=== PATIENT | female | born 1990 | race Caucasian/White ===

== ENCOUNTER 2018-03-05 14:56 | Observation (INO) | payer BC ==
--- OUTSIDE RECORDS SUMMARY | 2018-03-05 14:59 | XMS REPORT | Clinical Summary ---
:1990 Author Organization [facility] Address [address] [place] [address] Care Team Providers Name Role Phone Meng Tejada MD Primary Care Provider Allergies No Known Allergies Current Medications Prescription Sig. Disp. Refills Start Date End Date Status omeprazole Take 20 mg by Active (PriLOSEC) 20 MG mouth daily. capsule NUVARING 0.12-0.015 02/14/2017 Active mg/24 hr vaginal ring promethazine TAKE ONE TABLET 50 tablet 2 03/22/2017 Active (PHENERGAN) 25 MG BY MOUTH EVERY 6 tablet HOURS NEEDED FOR NAUSEA OR VOMITING dicyclomine TAKE 1 TABLET 30 tablet 5 05/07/2017 Active (BENTYL) 20 mg (20 MG TOTAL) BY tablet MOUTH DAILY NEEDED (ABDOMINAL PAIN). clonAZEPAM Take 0.5 mg by 0 05/02/2017 Active (KlonoPIN) 0.5 MG mouth 2 (two) disintegrating times a day as tablet needed. PARoxetine (PAXIL) Take 10 mg by 0 05/01/2017 Active 20 MG tablet mouth 2 (two) times a day. propranolol TAKE 1/2 - 1 0 05/02/2017 Active (INDERAL) 20 MG TABLET BY MOUTH tablet TWICE A DAY NEEDED FOR ANXIETY hyoscyamine Take 1-2 tablets 50 tablet 3 05/14/2017 Active (LEVSIN) 0.125 mg by mouth every 4 SL hours prn for tabletIndications: abdominal pain Irritable bowel syndrome with diarrhea hyoscyamine TAKE 1 TABLET BY 50 tablet 3 02/02/2018 Active (ANASPAZ,LEVSIN) MOUTH EVERY 4 0.125 mg tablet HOURS NEEDED FOR CRAMPING INFLIXIMAB Infuse into a Discontinued (REMICADE IV) venous catheter. 7 sertraline (ZOLOFT) Take 100 mg by Discontinued 100 MG tablet mouth daily. 7 clonAZEPAM Take 0.5 mg by Discontinued (KlonoPIN) 0.5 MG mouth daily. 7 tablet dicyclomine Take 1 tablet 30 tablet 0 02/05/2017 Discontinued (BENTYL) 20 mg (20 mg total) by 7 tablet mouth daily as needed (abdominal pain). promethazine Take 1 tablet 50 tablet 3 02/15/2017 (PHENERGAN) 25 MG (25 mg total) by 7 tabletIndications: mouth every 6 Nausea (six) hours as needed for nausea or vomiting for up to 30 days. traMADol (ULTRAM) Take 1 tablet by 30 tablet 0 02/27/2017 Discontinued 50 mg tablet mouth every 4-6 7 hours as needed for pain traMADol (ULTRAM) TAKE 1 TABLET BY 30 tablet 0 03/11/2017 50 mg tablet MOUTH EVERY 4 TO 7 6 HOURS NEEDED FOR PAIN dicyclomine TAKE 1 TABLET 30 tablet 0 03/22/2017 Discontinued (BENTYL) 20 mg (20 MG TOTAL) BY 7 tablet MOUTH DAILY NEEDED (ABDOMINAL PAIN). hyoscyamine Take 1 tablet 50 tablet 3 04/16/2017 Discontinued (ANASPAZ,LEVSIN) (0.125 mg total) 7 0.125 mg tablet by mouth every 4 (four) hours as needed for cramping for up to 30 days. riFAXimin (XIFAXAN) Take 1 tablet 42 tablet 0 05/14/2017 550 mg (550 mg total) 7 tabletIndications: by mouth 3 Diarrhea (three) times a Predominant day for 14 days Irritable Bowel Indications: Syndrome Diarrhea Predominant Irritable Bowel Syndrome. hyoscyamine Take 1 tablet 50 tablet 3 05/14/2017 Discontinued (LEVSIN) 0.125 mg (0.125 mg total) 7 SL by mouth every 4 tabletIndications: (four) hours as Irritable bowel needed for syndrome with cramping for up diarrhea to 30 days. Active Problems Problem Noted Date Crohn's disease of small intestine with complication 02/07/2017 Encounters Date Type Specialty Care Team Description 02/02/2018 Refill Gastroenterology Meng Tejada MD 08/15/2017 Telephone Gastroenterology Monique Trevino RN 06/17/2017 Telephone GastroenterMeng Ponce MD 06/04/2017 Telephone GastroenterIndia Agustin MA 06/03/2017 Telephone Gastroenterology Lisa Hooker RN 05/14/2017 Office Visit Gastroenterology Meng Tejada, Irritable bowel syndrome with diarrhea (Primary Dx) 05/07/2017 Refill GastroenterMeng Ponce MD 03/21/2017 Refill Meng Mendoza MD 03/08/2017 Refill GastroenterMeng Ponce MD 03/06/2017 Telephone Gastroenterology India Paz MA after 03/04/2017 Social History Tobacco Use Types Packs/Day Years Used Date Never Smoker Alcohol Use Drinks/Week oz/Week Comments Yes Sex Assigned at Date Recorded Not on file Last Filed Vital Signs Vital Sign Reading Time Taken Blood Pressure 114/71 05/14/2017 10:06 AM CDT Pulse 75 05/14/2017 10:06 AM CDT Temperature - - Respiratory Rate - - Oxygen Saturation - - Inhaled Oxygen Concentration - - Weight 77.1 kg (170 lb) 05/14/2017 10:06 AM CDT Height 160 cm (5' 3") 05/14/2017 10:06 AM CDT Body Mass Index 30.11 05/14/2017 10:06 AM CDT Plan of Treatment Health Maintenance Due Date Last Done Comments PAP SMEAR 2009 INFLUENZA VACCINE 06/25/2018 Results Not on fileafter 03/04/2017
[2018-03-05] MEDS ORDERED: ACETAMINOPHEN 500 MG TAB PO PRN (15:10)
[2018-03-05] MEDS: PROMETHAZINE 25 MG/ML VIAL IV PRN ×2 (15:40→19:50)
[2018-03-05] MEDS ORDERED: D5LR 1,000 ML IV SCH (16:00)
[2018-03-05 16:23] LABS: RPR Titer ND
[2018-03-05 16:32] LABS: Absolute Lymphocytes (CBC) 1.6 K/uL (0.7-4.9); Absolute Monocytes 0.5 K/uL (0.1-1.3); Absolute Neutrophil 7.7 K/uL (1.8-8.0); Basophils % 0.3 % (0-1.3); Eosinophils % 0.4 % (0-4.4); Lymphocytes % 16.2 % (15.3-44.8); MCH 29.1 pg (27.0-35.0); MCV 87.9 fL (80-100); MPV 10.3 fL (7.6-11.3); RBC Red Blood Cell Count 4.67 M/uL (3.86-4.86)
[2018-03-05 16:44] LABS: Glucose Level 131 mg/dL (65-120)
[2018-03-05 16:53] LABS: Potassium 3.6 mEq/L (3.6-5.0)
[2018-03-05] MEDS: D5LR 1,000 ML IV SCH ×2 (17:40→21:40)
[2018-03-05 22:01] LABS: RPR (Rapid Plasma Reagin) NON-REACT (NON-REACT)
[2018-03-06] MEDS: D5LR 1,000 ML IV SCH (06:44)
[2018-03-06 06:56] LABS: Urine Blood ND (NEG); Urine Glucose ND (NEG); Urine Protein ND (NEG)
[2018-03-06] MEDS: PROMETHAZINE 25 MG/ML VIAL IV PRN (07:40)
--- NOTE | 2018-03-06 07:55 | P.PN ---
Date of Service: 03/06/18 S-Still nauseated, did not have Diclegis last night O-Wt. to 183, up two pounds from office, negative ketonuria A-Improved but still not well P-Continued observation, will re-evaluate post noon, will retrieve samples of Diclegis from office.
[2018-03-06 10:22] VITALS: BMI 32.5
[2018-03-06 12:34] VITALS: BP 91/45; TEMP 98.7
--- NOTE | 2018-03-07 08:47 | PREOPHP ---
Date of Admission: 03/05/2018 History Of Present Illness: Ms. Arboleda is a 27-year-old female, 4, para 1 -0-2-1, now at approximately 9+ weeks gestation, who is admitted with hyperemesis gravidarum. She monge s been followed by me during this with history of 2 prior spontaneous ABs, history of depre ssion, mildly abnormal Pap smear, and now development of hyperemesis gravidarum. She has not been ab le to keep anything down more than a few crackers over the last couple of days and has lost a total o f 3.5 pounds over an approximately 1 week period of time despite taking Diclegis and Zofran at home. Because of this, she does show 1+ ketonuria. She will be admitted for IV hydration and for antiemet ic therapy. She denies recent cough, cold, fever, or chills. No recent vaginal bleeding or spotting . Past Medical History: Includes prior appendectomy, prior cholecystectomy, 2 prior spontaneous ABs, a nd 1 prior vaginal delivery. Medications: She is on no medications other than vitamins, Zofran, Diclegis. Allergies: SHE LISTS NO KNOWN ALLERGIES. Social History: She does not smoke. Family History: Noncontributory, except mother with elevated blood pressure. Review of Systems: She reports no fever or chills. She has had some upper abdominal discomfort from vomiting. She terry es any breast lumps. She denies any urine symptoms. No vaginal bleeding or spotting or bowel change s. Physical Examination: General: female in mild discomfort. Neck: Supple without adenopathy or thyromegaly. Lungs: Clear. Cardiac: Regular rate and rhythm without murmurs. Breasts: Not examined. Abdomen: Nontender without organosplenomegaly. Pelvic: Not performed. Extremities: No cyanosis, clubbing, edema. Plan: The patient will be admitted for IV hydration and treatment with IV Phenergan. GERI/ADALGISA Voice ID: [id number]
[2018-03-08 13:04] LABS: HBsAG Nonreactive (Nonreactive)
== END 2018-03-06 13:15 | disposition home or self-care (01) ==
LOC: 2ND-WC 14:56
PROVIDERS: ADMIT Specialist; ATTEND Specialist
DX: O21.0 Mild hyperemesis gravidarum (principal); Z3A.09 9 weeks gestation of pregnancy
CPT/HCPCS: 36415; 80051; 81003; 82947; 85025; 86592; 86762; 86850; 86900; 86901; 87340; G0378; G0433; J2550

== ENCOUNTER 2018-04-07 14:19 | Observation (INO) | payer BC ==
--- OUTSIDE RECORDS SUMMARY | 2018-04-07 14:24 | XMS REPORT | Clinical Summary ---
:1990 Author Organization [facility] Address [address] [place] [address] Care Team Providers Name Role Phone Meng [...] (KlonoPIN) 0.5 MG mouth daily. 7 tablet traMADol (ULTRAM) TAKE 1 TABLET BY 30 [...] Meng Tejada MD 08/15/2017 Telephone Gastroenterology Monique Trevino, IVETTE 06/17/2017 Telephone Gastroenterology Meng Tejada MD 06/04/2017 Telephone Gastroenterology India Paz MA 06/03/2017 Telephone Gastroenterology Lisa Hooker RN 05/14/2017 Office Visit Gastroenterology Meng Tejada, Irritable bowel syndrome with diarrhea (Primary Dx) 05/07/2017 Refill Gastroenterology Meng Tejada MD after 04/06/2017 Social History Tobacco Use Types Packs/Day Years [...] INFLUENZA VACCINE 06/25/2018 Results Not on fileafter 04/06/2017
[2018-04-07] MEDS ORDERED: D5LR 1,000 ML IV ONE (14:25)
[2018-04-07] MEDS ORDERED: D5LR 1,000 ML IV SCH ×3 (15:00→19:02)
[2018-04-07 15:08] LABS: Absolute Lymphocytes (CBC) 1.4 K/uL (0.7-4.9); Absolute Monocytes 0.6 K/uL (0.1-1.3); Absolute Neutrophil 7.3 K/uL (1.8-8.0); Basophils % 0.3 % (0-1.3); Eosinophils % 0.4 % (0-4.4); Hematocrit 40.4 % (36.0-45.0); Lymphocytes % 14.6 % (15.3-44.8); MCH 29.4 pg (27.0-35.0); MPV 9.7 fL (7.6-11.3); Monocytes % 6.4 % (3.3-12.3); RBC Red Blood Cell Count 4.65 M/uL (3.86-4.86)
[2018-04-07 15:09] VITALS: BMI 32.5
[2018-04-07] MEDS: D5LR 1,000 ML IV SCH ×3 (15:11→22:55)
[2018-04-07] MEDS: PROMETHAZINE 25 MG/ML VIAL IV PRN ×2 (15:17→19:45)
[2018-04-07 15:26] LABS: Bicarbonate 26 mEq/L (21-31); Glucose Level 83 mg/dL (65-120); Potassium 4.1 mEq/L (3.6-5.0)
[2018-04-07 15:27] LABS: BUN Blood Urea Nitrogen 9 mg/dL (6-20)
[2018-04-07] MEDS: ACETAMINOPHEN 500 MG TAB PO PRN (16:28)
[2018-04-07 18:17] LABS: Urine Blood ND (NEG); Urine Glucose ND (NEG); Urine Protein ND (NEG)
--- NOTE | 2018-04-07 19:33 | PREOPHP ---
Date of Admission: 04/07/2018 History Of Present Illness: Ms. Arboleda is a 27-year-old female, 4, para 1-0-2-1 a t approximately 13+ weeks gestation, who will be admitted for hyperemesis gravidarum with dehydration . She has been treated as an outpatient with Diclegis, Phenergan and Zofran and has lost 5 pounds ov er the last week and is therefore admitted for treatment with hydration and antiemetic agents. Past Medical History: Please see record. Family History: Please see record. Review of Systems: She reports no recent cough, cold, fever, or chills. She has had a headache. She denies any vaginal bleeding or spotting. She denies any urine symptoms or bowel issues other than she had loose bowel movements this last week with some diarrhea that is settle down. Physical Examination: General: female. Neck: Supple without adenopathy or thyromegaly. Lungs: Clear. Cardiac: Regular rate and rhythm without murmurs. Breasts: Not examined. Abdomen: Nontender. heart tones well heard. Laboratory Data: Urine is 2+ ketones. Impression: 13+ week , hyperemesis, gravidarum, dehydration. Plan: The patient will be admitted for IV hydration with failed outpatient treatment for hyperemesis . GERI/ADALGISA Voice ID: [id number]
[2018-04-07 20:01] LABS: Sodium Level 137 mEq/L (135-145)
[2018-04-07] MEDS ORDERED: RANITIDINE 150 MG TABLET PO SCH (21:00)
[2018-04-08 00:42] LABS: Urine Blood NEGATIVE (NEG); Urine Glucose NEGATIVE (NEG); Urine Protein NEGATIVE (NEG)
[2018-04-08 04:25] LABS: Urine Blood NEGATIVE (NEG); Urine Glucose NEGATIVE (NEG); Urine Protein NEGATIVE (NEG)
[2018-04-08] MEDS: D5LR 1,000 ML IV SCH ×2 (05:25→11:30)
[2018-04-08 06:22] LABS: Urine Blood NEGATIVE (NEG); Urine Glucose NEGATIVE (NEG); Urine Protein NEGATIVE (NEG)
[2018-04-08] MEDS: PROMETHAZINE 25 MG/ML VIAL IV PRN ×2 (07:07→13:04)
[2018-04-08] MEDS: ACETAMINOPHEN 500 MG TAB PO PRN (07:11)
[2018-04-08 12:00] LABS: Urine Blood NEGATIVE (NEG); Urine Glucose NEGATIVE (NEG); Urine Protein NEGATIVE (NEG)
[2018-04-08 12:00] LABS: Urine Blood NEGATIVE (NEG); Urine Glucose NEGATIVE (NEG); Urine Protein NEGATIVE (NEG)
[2018-04-08 16:10] VITALS: BP 102/56; TEMP 97.8
--- NOTE | 2018-04-09 15:13 | DS ---
Date of Discharge: 04/08/2018 Final Hospital Discharge Diagnoses: 1.13+ week . 2.Hyperemesis gravidarum. 3.Dehydration. Complications: None. Procedures: IV hydration treatment with antiemetic therapy. Hospital Course: The patient is a 27-year-old female, 13+ weeks gestation, admitted for se cond time during this with hyperemesis, dehydration, and unresponsive to outpatient managem ent. She has lost 5 pounds over 1 week period of time and was not able to keep fluids down. She was admitted, treated with IV hydration, antiemetic therapy, was dismissed to be seen back in my office utilizing Phenergan tabs and Dicaubreegis. Lab work obtained during this hospital stay included ketones were 4+ on admission, resolved within 8 hours of admission. She had an admission hemoglobin and latricia tocrit of 13.6 and 40.4. Chemistries generally okay with the exception of mildly elevated chloride o n admission. Urine, again 4+ ketones on admission and then negative after that point. GERI/ADALGISA Voice ID: [id number] Report ID: [id number]
== END 2018-04-08 17:20 | disposition home or self-care (01) ==
LOC: 2ND-WC 14:19
PROVIDERS: ADMIT Specialist; ATTEND Specialist
DX: O21.1 Hyperemesis gravidarum with metabolic disturbance (principal); Z3A.13 13 weeks gestation of pregnancy
CPT/HCPCS: 36415; 80048; 81003; 85025; G0378; J2550

== ENCOUNTER 2018-06-05 13:01 | Emergency (ER) | payer BC ==
--- OUTSIDE RECORDS SUMMARY | 2018-06-05 13:03 | XMS REPORT | Clinical Summary ---
:1990 Author Organization [facility] Address [address] [place] [address] Care Team Providers Name Role Phone Meng Tejada MD Primary Care Provider Allergies No Known Allergies Current Medications Prescription Sig. Disp. Refills Start Date End Date Status omeprazole (PriLOSEC) Take 20 mg by Active 20 MG capsule mouth daily. NUVARING 0.12-0.015 02/14/2017 Active mg/24 hr vaginal ring promethazine TAKE ONE TABLET 50 tablet 2 03/22/2017 Active (PHENERGAN) 25 MG BY MOUTH EVERY 6 tablet HOURS NEEDED FOR NAUSEA OR VOMITING dicyclomine (BENTYL) 20 TAKE 1 TABLET (20 30 tablet 5 05/07/2017 Active mg tablet MG TOTAL) BY MOUTH DAILY NEEDED (ABDOMINAL PAIN). clonAZEPAM (KlonoPIN) Take 0.5 mg by 0 05/02/2017 Active 0.5 MG disintegrating mouth 2 (two) tablet times a day as needed. PARoxetine (PAXIL) 20 Take 10 mg by 0 05/01/2017 Active MG tablet mouth 2 (two) times a day. propranolol (INDERAL) TAKE 1/2 - 1 0 05/02/2017 Active 20 MG tablet TABLET BY MOUTH TWICE A DAY NEEDED FOR ANXIETY hyoscyamine (LEVSIN) Take 1-2 tablets 50 tablet 3 05/14/2017 Active 0.125 mg SL by mouth every 4 tabletIndications: hours prn for Irritable bowel abdominal pain syndrome with diarrhea hyoscyamine TAKE 1 TABLET BY 50 tablet 3 02/02/2018 Active (ANASPAZ,LEVSIN) 0.125 MOUTH EVERY 4 mg tablet HOURS NEEDED FOR CRAMPING Active Problems Problem Noted Date Crohn's disease of small intestine with complication 02/07/2017 Encounters Date Type Specialty Care Team Description 02/02/2018 Refill Gastroenterology Meng Tejada MD 08/15/2017 Telephone Gastroenterology Monique Trevino RN 06/17/2017 Telephone Gastroenterology Meng Tejada MD 06/04/2017 Telephone Gastroenterology India Paz MA after 06/04/2017 Social History Tobacco Use Types Packs/Day Years Used Date Never Smoker Alcohol Use Drinks/Week oz/Week Comments Yes Sex Assigned at Date Recorded Not on file Last Filed Vital Signs Not on file Plan of Treatment Health Maintenance Due Date Last Done Comments CERVICAL CANCER SCREENING 2009 INFLUENZA VACCINE 06/25/2018 Results Not on fileafter 06/04/2017
[2018-06-05 14:40] LABS: Absolute Lymphocytes (CBC) 1.8 K/uL (0.7-4.9); Absolute Monocytes 0.5 K/uL (0.1-1.3); Absolute Neutrophil 6.2 K/uL (1.8-8.0); Basophils % 0.6 % (0-1.3); Eosinophils % 0.9 % (0-4.4); Lymphocytes % 20.7 % (15.3-44.8); MCH 30.3 pg (27.0-35.0); MCV 87.7 fL (80-100); MPV 9.5 fL (7.6-11.3); Monocytes % 5.8 % (3.3-12.3); RBC Red Blood Cell Count 3.87 M/uL (3.86-4.86)
[2018-06-05 14:52] LABS: BUN Blood Urea Nitrogen 10 mg/dL (7-18); Bicarbonate 29 mmol/L (21-32); Glucose Level 110 mg/dL (74-106); Potassium 3.6 mmol/L (3.5-5.1); Sodium Level 139 mmol/L (136-145)
--- NOTE | 2018-06-05 15:32 | ER ---
Nurse's Notes [facility] Name: Daria Arboleda Age: 27 yrs Sex: Female : 1990 Arrival Date: 06/05/2018 Time: 13:04 Bed 14 Private MD: None, None Diagnosis: Anxiety disorder, unspecified Presentation: 06/05 13:07 Presenting complaint: Patient states: "For the past week I've had these big dizzy aj1 spells with SOB I feel like I'm going to pass out if I don't sit down. My doctor thought it was anxiety attacks, but I can't take my anxiety medications because I'm 22 weeks ." Reports that usually the feeling is intermittent, but today it more mild, but has not gone away. Pt's OB is Dr. Powell in [place]. Transition of care: patient was not received from another setting of care. Onset of symptoms was May 29, 2018. Risk Assessment: Do you want to hurt yourself or someone else? Patient reports no desire to harm self or others. Initial Sepsis Screen: Does the patient meet any 2 criteria? No. Patient's initial sepsis screen is negative. Does the patient have a suspected source of infection? No. Patient's initial sepsis screen is negative. Care prior to arrival: None. 13:07 Method Of Arrival: Ambulatory aj1 13:07 Acuity: AMARJIT 3 aj1 Triage Assessment: 13:13 General: Appears in no apparent distress. comfortable, Behavior is calm, cooperative, aj1 appropriate for age. Pain: Denies pain. Neuro: Level of Consciousness is awake, alert, obeys commands, Speech is normal, Facial symmetry appears normal. Cardiovascular: Patient's skin is warm and dry. Respiratory: Reports shortness of breath Airway is patent Respiratory effort is even, unlabored, Respiratory pattern is regular, symmetrical. Derm: Skin is pink, warm \\T\\ dry. normal. 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 - Social history:: Smoking status: Patient/guardian denies using tobacco. - Ebola Screening: : Patient denies travel to an Ebola-affected area in the 21 days before illness onset. Screenin:16 Abuse screen: Denies threats or abuse. Nutritional screening: No deficits noted. tw2 Tuberculosis screening: No symptoms or risk factors identified. Fall Risk None identified. Assessment: 14:00 General: Appears in no apparent distress. well groomed. tw2 14:15 Reassessment: provider at bedside at this time. tw2 14:32 Reassessment: pt states "i was just cleared by L\\T\\D upstairs before i came here, the tw2 baby's heart rate was in the 140's", provider notified. Pain: Denies pain. Neuro: Level of Consciousness is awake, alert, obeys commands, Oriented to person, place, time, situation. Cardiovascular: Denies chest pain, shortness of breath, Heart tones S1 S2 Patient's skin is warm and dry. Respiratory: Airway is patent Respiratory effort is even, unlabored, Respiratory pattern is regular, symmetrical. GI: No signs and/or symptoms were reported involving the gastrointestinal system. : No signs and/or symptoms were reported regarding the genitourinary system. EENT: No signs and/or symptoms were reported regarding the EENT system. Derm: Skin is intact, is healthy with good turgor, Skin temperature is warm. Musculoskeletal: Reports numbness in left arm and dizziness. 15:23 Reassessment: Patient appears in no apparent distress at this time. No changes from tw2 previously documented assessment. Patient and/or family updated on plan of care and expected duration. Pain level reassessed. Patient is alert, oriented x 3, equal unlabored respirations, skin warm/dry/pink. 15:53 Reassessment: Patient appears in no apparent distress at this time. No changes from tw2 previously documented assessment. Patient and/or family updated on plan of care and expected duration. Pain level reassessed. Patient is alert, oriented x 3, equal unlabored respirations, skin warm/dry/pink. Vital Signs: 13:13 BP 109 / 59; Pulse 83; Resp 18; Temp 98.2(TE); Pulse Ox 99% on R/A; Weight 80.74 kg aj1 (R); Height 5 ft. 3 in. (160.02 cm) (R); Pain 0/10; 14:34 BP 122 / 72; Pulse 74; Resp 17; Pulse Ox 100% on R/A; tw2 15:23 BP 117 / 75; Pulse 71; Resp 17; Pulse Ox 100% on R/A; tw2 13:13 Body Mass Index 31.53 (80.74 kg, 160.02 cm) aj1 ED Course: 13:04 Patient arrived in ED. mr 13:04 None, None is Private Physician. mr 13:12 Triage completed. aj1 13:13 Arm band placed on right wrist. Patient placed in waiting room, Patient notified of aj1 wait time. 13:55 Bed in low position. Adult w/ patient. groundwater monitoring technician on. Pulse ox on. NIBP on. Warm tw2 blanket given. 14:04 Jono Whalen NP is PHCP. pm1 14:04 Ovidio Love MD is Attending Physician. pm1 14:15 Jannie Rogers RN is Primary Nurse. tw2 14:30 Inserted saline lock: 22 gauge in right antecubital area, using aseptic technique. tw2 Blood collected. 15:53 No provider procedures requiring assistance completed. IV discontinued, intact, tw2 bleeding controlled, No redness/swelling at site. Pressure dressing applied. Administered Medications: 15:37 Not Given (Patient Refused): NS 0.9% 1000 ml IV at 1000 ml once tw2 Outcome: 15:31 Discharge ordered by . pm1 15:53 Discharged to home ambulatory, with family. tw2 15:53 Condition: stable 15:53 Discharge instructions given to patient, family, Instructed on discharge instructions, follow up and referral plans. Demonstrated understanding of instructions, follow-up care. 15:54 Patient left the ED. tw2 Signatures: Teresa Egan RN RN aj1 Lisa Hurt mr Jono Whalen NP [employer] pm1 Jannie Rogers RN RN tw2 Corrections: (The following items were deleted from the chart) 14:34 14:00 General: Appears tw2 tw2
--- NOTE | 2018-06-05 15:32 | EDPHYS ---
Physician Documentation [facility] Name: Daria Arboleda Age: 27 yrs Sex: Female : 1990 Arrival Date: 06/05/2018 Time: 13:04 Bed 14 Private MD: None, None ED Physician Ovidio Love HPI: 06/05 14:30 This 27 yrs old Female presents to ER via Ambulatory with complaints of pm1 Dizziness, Numbness of hands and feet. 14:30 The patient presents with dizziness. Onset: The symptoms/episode began/occurred this pm1 morning. Context: occurred at home. Modifying factors: The symptoms are alleviated by nothing, the symptoms are aggravated by hyperventilation. Patient with a history of anxiety and presents to the ER with complaints of dizziness, circum oral numbness, and tetany and numbness to bilateral hands and feet with hyperventilation. Patient is currently taking zoloft but is unable to take her clonazepam due to current . Patient has been seen by OB for the same complaint a few days ago and was told that it was her anxiety. [employer]: 13:13 LMP 12/27/2017 aj1 Historical: - Allergies: 13:13 No Known Allergies; aj1 - Home Meds: 13:13 Zoloft Oral [Active]; Vitamin Oral [Active]; aj1 - PMHx: 13:13 Anxiety; Crohn's; Depression; aj1 - Immunization history:: Flu vaccine is not up to date. - Social history:: Smoking status: Patient/guardian denies using tobacco. - Ebola Screening: : Patient denies travel to an Ebola-affected area in the 21 days before illness onset. ROS: 14:30 Constitutional: Negative for fever, chills, and weight loss, Eyes: Negative for injury, pm1 pain, redness, and discharge, ENT: Negative for injury, pain, and discharge, Neck: Negative for injury, pain, and swelling, Cardiovascular: Negative for chest pain, palpitations, and edema, Respiratory: Negative for shortness of breath, cough, wheezing, and pleuritic chest pain, Abdomen/GI: Negative for abdominal pain, nausea, vomiting, diarrhea, and constipation, Back: Negative for injury and pain, : Negative for injury, bleeding, discharge, and swelling, MS/Extremity: Negative for injury and deformity, Skin: Negative for injury, rash, and discoloration, Neuro: Negative for headache, weakness, numbness, tingling, and seizure. Exam: 14:30 Constitutional: This is a well developed, well nourished patient who is awake, alert, pm1 and in no acute distress. Head/Face: Normocephalic, atraumatic. Eyes: Pupils equal round and reactive to light, extra-ocular motions intact. Lids and lashes normal. Conjunctiva and sclera are non-icteric and not injected. Cornea within normal limits. Periorbital areas with no swelling, redness, or edema. ENT: Nares patent. No nasal discharge, no septal abnormalities noted. Tympanic membranes are normal and external auditory canals are clear. Oropharynx with no redness, swelling, or masses, exudates, or evidence of obstruction, uvula midline. Mucous membranes moist. Neck: Trachea midline, no thyromegaly or masses palpated, and no cervical lymphadenopathy. Supple, full range of motion without nuchal rigidity, or vertebral point tenderness. No Meningismus. Chest/axilla: Normal chest wall appearance and motion. Nontender with no deformity. No lesions are appreciated. Cardiovascular: Regular rate and rhythm with a normal S1 and S2. No gallops, murmurs, or rubs. Normal PMI, no JVD. No pulse deficits. Respiratory: Lungs have equal breath sounds bilaterally, clear to auscultation and percussion. No rales, rhonchi or wheezes noted. No increased work of breathing, no retractions or nasal flaring. Abdomen/GI: Soft, non-tender, with normal bowel sounds. No distension or tympany. No guarding or rebound. No evidence of tenderness throughout. Back: No spinal tenderness. No costovertebral tenderness. Full range of motion. Skin: Warm, dry with normal turgor. Normal color with no rashes, no lesions, and no evidence of cellulitis. MS/ Extremity: Pulses equal, no cyanosis. Neurovascular intact. Full, normal range of motion. 14:30 Neuro: Orientation: is normal, Cranial nerves: CN II- XII are normal as tested, Motor: is normal, moves all fours, Sensation: is normal, no obvious gross deficits. Vital Signs: 13:13 BP 109 / 59; Pulse 83; Resp 18; Temp 98.2(TE); Pulse Ox 99% on R/A; Weight 80.74 kg aj1 (R); Height 5 ft. 3 in. (160.02 cm) (R); Pain 0/10; 14:34 BP 122 / 72; Pulse 74; Resp 17; Pulse Ox 100% on R/A; tw2 15:23 BP 117 / 75; Pulse 71; Resp 17; Pulse Ox 100% on R/A; tw2 13:13 Body Mass Index 31.53 (80.74 kg, 160.02 cm) [facility] MDM: 14:04 Patient medically screened. pm1 15:30 Data reviewed: vital signs. Data interpreted: Pulse oximetry: on room air is 100 %. pm1 Interpretation: normal. Counseling: I had a detailed discussion with the patient and/or guardian regarding: the historical points, exam findings, and any diagnostic results supporting the discharge/admit diagnosis, lab results, the need for outpatient follow up, to return to the emergency department if symptoms worsen or persist or if there are any questions or concerns that arise at home. 15:30 Refusal of service: The patient/guardian displays adequate decision making capability pm1 and despite a detailed discussion of alternatives, benefits, risks, and consequences refuses: IV fluids for urine ketones. Patient wants to drink fluids at home. 06/05 14:17 Order name: Basic Metabolic Panel; Complete Time: 15:25 pm1 06/05 14:17 Order name: CBC with Diff; Complete Time: 15:25 pm1 06/05 14:17 Order name: IV Saline Lock; Complete Time: 14:32 pm1 06/05 14:53 Order name: Urine Dipstick--Ancillary (enter results) 06/05 14:53 Order name: Urine --Ancillary (enter results) ag 06/05 14:17 Order name: Labs collected and sent; Complete Time: 14:31 pm1 06/05 14:17 Order name: NPO; Complete Time: 14:22 pm06/05 14:17 Order name: Urine Dipstick-Ancillary (obtain specimen); Complete Time: 14:22 pm1 Administered Medications: 15:37 Not Given (Patient Refused): NS 0.9% 1000 ml IV at 1000 ml once tw2 Disposition: 17:22 Co-signature as Attending Physician, Ovidio Love MD I agree with the assessment and kdr plan of care. Disposition: 06/05/18 15:31 Discharged to Home. Impression: Anxiety disorder, unspecified. - Condition is Stable. - Discharge Instructions: Generalized Anxiety Disorder. - Medication Reconciliation Form, Thank You Letter form. - Follow up: Private Physician; When: 2 - 3 days; Reason: Recheck today's complaints, Continuance of care, Re-evaluation by your physician. Follow up: Emergency Department; When: As needed; Reason: Worsening of condition. - Problem is new. - Symptoms have improved. Signatures: Dispatcher [employer] EDTeresa Haney, RN RN aj1 Ovidio Love MD MD kdr Marinas, Patrick, DEPENDENCY CASE MANAGER DEPENDENCY CASE MANAGER pm1 Jannie Rogers RN RN tw2 Corrections: (The following items were deleted from the chart) 14:31 14:17 FHT's ordered. pm1 tw2 15:54 15:31 06/05/2018 15:31 Discharged to Home. Impression: Anxiety disorder, unspecified. tw2 Condition is Stable. Forms are Medication Reconciliation Form, Thank You Letter, Antibiotic Education, Prescription Opioid Use. Follow up: Private Physician; When: 2 - 3 days; Reason: Recheck today's complaints, Continuance of care, Re-evaluation by your physician. Follow up: Emergency Department; When: As needed; Reason: Worsening of condition. Problem is new. Symptoms have improved. pm1
[2018-06-05 15:58] VITALS: TEMP 98.2
[2018-06-05 15:59] VITALS: O2SAT 100
[2018-06-05 15:59] LABS: Urine Blood NEGATIVE (NEG); Urine Glucose NEGATIVE (NEG); Urine Protein TRACE (NEG)
[2018-06-05 16:00] VITALS: BP 117/75
== END 2018-06-05 15:54 | disposition home or self-care (01) ==
LOC: ER 13:01
DX: F41.9 Anxiety disorder, unspecified (principal)
CPT/HCPCS: 36415; 80048; 81003; 81025; 85025; 99284

== ENCOUNTER 2020-01-01 15:24 | Emergency (ER) | payer BC ==
[2020-01-01] MEDS ORDERED: KETOROLAC 30 MG/ML INJ ONE (16:22)
[2020-01-01] MEDS ORDERED: NA CHLORIDE 0.9% 1,000 ML ONE (16:22)
[2020-01-01 16:48] LABS: Basophils % 1.2 % (0-1.3); Hematocrit 40.2 % (36.0-45.0); Lymphocytes % 25.6 % (15.3-44.8); MPV 9.4 fL (7.6-11.3); RBC Red Blood Cell Count 4.58 M/uL (3.86-4.86)
[2020-01-01 16:55] LABS: Protime INR 0.89
[2020-01-01 17:04] LABS: Barbiturates NEGATIVE (NEGATIVE); Benzodiazepines POSITIVE (NEGATIVE); Cocaine NEGATIVE (NEGATIVE); METHAMPHETAM NEGATIVE (NEGATIVE); Methadone NEGATIVE (NEGATIVE); Opiates NEGATIVE (NEGATIVE); Phencyclidine NEGATIVE (NEGATIVE); THC Cannibis NEGATIVE (NEGATIVE)
[2020-01-01 17:10] LABS: ALT/SGPT 23 U/L (12-78); AST/SGOT 18 U/L (15-37); Albumin 3.9 g/dL (3.4-5.0); Alkaline Phosphatase 56 U/L (45-117); BUN Blood Urea Nitrogen 12 mg/dL (7-18); Bicarbonate 29 mmol/L (21-32); Bilirubin Direct < 0.1 mg/dL (0-0.2); Bilirubin Total 0.3 mg/dL (0.2-1.0); Glucose Level 107 mg/dL (74-106); Potassium 3.7 mmol/L (3.5-5.1); Protein, Total 7.6 g/dL (6.4-8.2); Sodium Level 140 mmol/L (136-145); Troponin (Emerg Dept Use Only) < 0.02 ng/mL (0.0-0.045)
[2020-01-01 17:14] LABS: T3 Free 2.49 pg/mL (2.18-3.98); Thyroid Stimulating Hormone 0.693 uIU/mL (0.360-3.740)
--- NOTE | 2020-01-01 17:56 | RAD REPORT ---
EXAM DESCRIPTION: RAD - Chest Pa And Lat (2 Views) - 01/01/2020 5:51 pm CLINICAL HISTORY: CHEST PAIN Chest pain. COMPARISON: Chest Single View dated 11/22/2016; CHEST SINGLE VIEW dated 01/02/2015; CHEST PA AND LAT 2 VIEW dated 11/23/2014 FINDINGS: The lungs are clear. The heart is normal in size. No displaced fractures. IMPRESSION: No acute or concerning finding suspected.
--- NOTE | 2020-01-01 18:18 | ER ---
Nurse's Notes [facility] Name: Daria Arboleda Age: 29 yrs Sex: Female : 1990 Arrival Date: 01/01/2020 Time: 15:28 Bed 14 Private MD: Diagnosis: Palpitations;Other chest pain Presentation: 01/01 15:32 Presenting complaint: Patient states: "My doctor wanted me to come last night, I see aj1 her for anxiety and panic attacks and I feel like I've had a constant heart attack for 3 days. I take gabapentin, but even with that my heart rate isn't going down, and its making me so exhausted" Denies pain. Transition of care: patient was not received from another setting of care. Onset of symptoms was December 2019. Risk Assessment: Do you want to hurt yourself or someone else? Patient reports no desire to harm self or others. Initial Sepsis Screen: Does the patient meet any 2 criteria? HR > 90 bpm. No. Patient's initial sepsis screen is negative. Does the patient have a suspected source of infection? No. Patient's initial sepsis screen is negative. Care prior to arrival: None. 15:32 Method Of Arrival: Ambulatory aj1 15:32 Acuity: AMARJIT 3 aj1 Triage Assessment: 15:35 General: Appears in no apparent distress. comfortable, Behavior is calm, cooperative, aj1 appropriate for age. Pain: Denies pain. Neuro: Level of Consciousness is awake, alert, obeys commands. Cardiovascular: Patient's skin is warm and dry. Respiratory: Airway is patent Respiratory effort is even, unlabored, Respiratory pattern is regular, symmetrical. 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 - Coronavirus screen:: The patient has NOT traveled to [place], [place], or [place] in the past 14 days. - Social history:: Smoking status: Patient/guardian denies using tobacco. - Ebola Screening: : Patient denies travel to an Ebola-affected area in the 21 days before illness onset. Screenin:50 Abuse screen: Denies threats or abuse. Denies injuries from another. Nutritional sg screening: No deficits noted. Tuberculosis screening: No symptoms or risk factors identified. Never had TB. Fall Risk None identified. Assessment: 15:50 General: Appears in no apparent distress. well groomed, well developed, well nourished, sg Behavior is calm, cooperative, appropriate for age. Pain: Denies pain. 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 Cardiovascular: Heart tones S1 S2 present Patient's skin is warm and dry. Chest pain is denied. Respiratory: Airway is patent Respiratory effort is even, unlabored, Respiratory pattern is regular, symmetrical. GI: No signs and/or symptoms were reported involving the gastrointestinal system. : No signs and/or symptoms were reported regarding the genitourinary system. EENT: No signs and/or symptoms were reported regarding the EENT system. Derm: Skin is pink, warm \\T\\ dry. Musculoskeletal: Circulation, motion, and sensation intact. Range of motion: intact in all extremities. 16:30 Reassessment: Patient appears in no apparent distress at this time. pt currently denies sg pain, refuses toradol at this time, will hold medication. Vital Signs: 15:35 BP 127 / 82; Pulse 91; Resp 18; Temp 97.7; Pulse Ox 99% on R/A; Weight 81.65 kg (R); aj1 Height 5 ft. 3 in. (160.02 cm) (R); Pain 0/10; 17:18 BP 123 / 83; Pulse 85; Resp 16; Pulse Ox 100% on R/A; sg 18:10 BP 122 / 80; Pulse 81; Resp 17; Pulse Ox 100% on R/A; Pain 0/10; sg 15:35 Body Mass Index 31.89 (81.65 kg, 160.02 cm) aj1 ED Course: 15:28 Patient arrived in ED. as 15:34 Triage completed. aj1 15:35 Arm band placed on Patient placed in an exam room. aj1 15:38 Gurmeet Camacho PA is PHCP. cp 15:38 Cade Mazariegos MD is Attending Physician. cp 15:42 Meng Hernandez, RN is Primary Nurse. sg 15:42 Patient has correct armband on for positive identification. Bed in low position. Call sg light in reach. Side rails up X2. youth nutritional monitor on. Pulse ox on. NIBP on. 16:27 Initial lab(s) drawn, by me, sent to lab. Inserted saline lock: 20 gauge in right dh3 antecubital area, using aseptic technique. Blood collected. 16:31 EKG done, by ED staff, reviewed by Gurmeet MENDOZA. 3 16:40 Urine collected: clean catch specimen, clear. 3 17:51 XRAY Chest Pa And Lat (2 Views) In Process Unspecified. EDMS 18:15 Nichole Sultana MD is Referral Physician. cp 18:20 No provider procedures requiring assistance completed. IV discontinued, intact, sg bleeding controlled, No redness/swelling at site. Pressure dressing applied. Administered Medications: 16:30 Drug: NS 0.9% 1000 ml Route: IV; Rate: 1 bolus; Site: right antecubital; sg 18:48 Not Given (Patient Refused): TORadol - Ketorolac 15 mg IVP once sg Outcome: 18:16 Discharge ordered by . cp 18:20 Discharged to home ambulatory, with family. sg 18:20 Condition: good 18:20 Discharge instructions given to patient, Instructed on discharge instructions, follow up and referral plans. safety practices, Demonstrated understanding of instructions, follow-up care, medications. 18:25 Patient left the ED. iw Signatures: Dispatcher [employer] EDMO Teresa Egan RN RN aj1 Meng Hernandez, RN Gilma Valente Irene, RN RN iw Page, Corey, PA PA cp Herrera, Deanna formerly [facility]
--- NOTE | 2020-01-01 18:19 | EDPHYS ---
Physician Documentation [facility] Name: Daria Arboleda Age: 29 yrs Sex: Female : 1990 Arrival Date: 01/01/2020 Time: 15:28 Bed 14 Private MD: ED Physician Cade Mazariegos HPI: 01/01 15:56 This 29 yrs old Female presents to ER via Ambulatory with complaints of cp Elevated Heart Rate. 15:56 The patient or guardian reports chest pain that is located primarily in the anterior cp chest wall. The pain does not radiate. Associated signs and symptoms: Pertinent positives: palpitations, Pertinent negatives: abdominal pain, lower extremity pain, lower extremity swelling, recent travel, shortness of breath, syncope. Duration: The patient or guardian reports a single episode, that is still ongoing. 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 - Coronavirus screen:: The patient has NOT traveled to [place], [place], or [place] in the past 14 days. - Social history:: Smoking status: Patient/guardian denies using tobacco. - Ebola Screening: : Patient denies travel to an Ebola-affected area in the 21 days before illness onset. ROS: 16:00 Constitutional: Negative for body aches, chills, fever, poor PO intake. cp 16:00 Eyes: Negative for injury, pain, redness, and discharge. cp 16:00 ENT: Negative for drainage from ear(s), ear pain, sore throat, difficulty swallowing, difficulty handling secretions. 16:00 Cardiovascular: Positive for chest pain, palpitations, Negative for edema. 16:00 Respiratory: Negative for cough, shortness of breath, wheezing. 16:00 Abdomen/GI: Negative for abdominal pain, nausea, vomiting, and diarrhea, constipation, black/tarry stool, rectal bleeding. 16:00 Back: Negative for radiated pain. 16:00 Neuro: Negative for altered mental status, headache, syncope, weakness. 16:00 All other systems are negative. Exam: 16:04 Head/Face: Normocephalic, atraumatic. Eyes: Pupils equal round and reactive to light, cp extra-ocular motions intact. Lids and lashes normal. Conjunctiva and sclera are non-icteric and not injected. Cornea within normal limits. Periorbital areas with no swelling, redness, or edema. ENT: Nares patent. No nasal discharge, no septal abnormalities noted. Tympanic membranes are normal and external auditory canals are clear. Oropharynx with no redness, swelling, or masses, exudates, or evidence of obstruction, uvula midline. Mucous membranes moist. Chest/axilla: Normal chest wall appearance and motion. Nontender with no deformity. No lesions are appreciated. Cardiovascular: Regular rate and rhythm with a normal S1 and S2. No gallops, murmurs, or rubs. Normal PMI, no JVD. No pulse deficits. Respiratory: Lungs have equal breath sounds bilaterally, clear to auscultation and percussion. No rales, rhonchi or wheezes noted. No increased work of breathing, no retractions or nasal flaring. Abdomen/GI: Soft, non-tender, with normal bowel sounds. No distension or tympany. No guarding or rebound. No evidence of tenderness throughout. Back: No spinal tenderness. No costovertebral tenderness. Full range of motion. Skin: Warm, dry with normal turgor. Normal color with no rashes, no lesions, and no evidence of cellulitis. Neuro: Awake and alert, GCS 15, oriented to person, place, time, and situation. Cranial nerves II-XII grossly intact. Motor strength 5/5 in all extremities. Sensory grossly intact. Cerebellar exam normal. Normal gait. 16:04 Constitutional: The patient appears in no acute distress, alert, awake, comfortable, non-diaphoretic, non-toxic, well developed, well nourished. 16:46 ECG was reviewed by the Attending Physician. cp Vital Signs: 15:35 BP 127 / 82; Pulse 91; Resp 18; Temp 97.7; Pulse Ox 99% on R/A; Weight 81.65 kg (R); aj1 Height 5 ft. 3 in. (160.02 cm) (R); Pain 0/10; 17:18 BP 123 / 83; Pulse 85; Resp 16; Pulse Ox 100% on R/A; sg 18:10 BP 122 / 80; Pulse 81; Resp 17; Pulse Ox 100% on R/A; Pain 0/10; sg 15:35 Body Mass Index 31.89 (81.65 kg, 160.02 cm) aj1 MDM: 15:46 Patient medically screened. cp 18:15 Data reviewed: vital signs, nurses notes, lab test result(s), EKG, radiologic studies, cp plain films. 18:15 Test interpretation: by ED physician or midlevel provider: ECG, plain radiologic cp studies, chest xray negative for infiltrates. Counseling: I had a detailed discussion with the patient and/or guardian regarding: the historical points, exam findings, and any diagnostic results supporting the discharge/admit diagnosis, lab results, radiology results, the need for outpatient follow up, for definitive care, a medical claims representative, to return to the emergency department if symptoms worsen or persist or if there are any questions or concerns that arise at home. Response to treatment: the patient's symptoms have mildly improved after treatment, and as a result, I will discharge patient. 01/01 15:39 Order name: UDS; Complete Time: 17:15 cp 02 17:15 Interpretation: Normal except: BZO POSITIVE. cp 01/01 15:52 Order name: Basic Metabolic Panel; Complete Time: 17:15 cp 01/01 17:15 Interpretation: Normal except: GLUC 107. cp 01/01 15:52 Order name: CBC with Diff; Complete Time: 17:15 cp 01/01 17:16 Interpretation: Reviewed. cp 01/01 15:52 Order name: LFT's; Complete Time: 17:15 cp 01/01 17:16 Interpretation: Normal except: GLOB 3.7. cp 01/01 15:52 Order name: Magnesium; Complete Time: 17:15 cp 01/01 15:52 Order name: PT-INR; Complete Time: 17:15 cp 01/01 15:52 Order name: Troponin (emerg Dept Use Only); Complete Time: 17:15 cp 02/ 17:16 Interpretation: Within normal limits: TROPED < 0.02; Reviewed. cp 01/01 15:52 Order name: D-Dimer; Complete Time: 17:15 cp 02 17:16 Interpretation: D-DIMER 223; Reviewed. cp 01/01 15:56 Order name: TSH; Complete Time: 17:15 cp 01/01 15:56 Order name: T3 Free; Complete Time: 17:15 cp 01/01 16:58 Order name: Urine Dipstick--Ancillary (enter results) 01/01 16:58 Order name: Urine --Ancillary (enter results) 01/01 17:17 Order name: XRAY Chest Pa And Lat (2 Views); Complete Time: 18:09 01/01 18:09 Interpretation: Report reviewed. 01/01 15:39 Order name: Urine Dipstick-Ancillary (obtain specimen); Complete Time: 16:51 cp 01/01 15:39 Order name: Urine Test (obtain specimen); Complete Time: 16:51 cp 01/01 15:39 Order name: EKG; Complete Time: 15:39 cp 01/01 15:39 Order name: EKG - Nurse/Tech; Complete Time: 16:51 01/01 15:52 Order name: Cardiac monitoring; Complete Time: 16:51 cp 01/01 15:52 Order name: IV Saline Lock; Complete Time: 16:51 cp 01/01 15:52 Order name: Labs collected and sent; Complete Time: 16:51 cp 01/01 15:52 Order name: O2 Per Protocol; Complete Time: 16:51 cp 01/01 15:52 Order name: O2 Sat Monitoring; Complete Time: 16:51 cp EC:46 Rate is 80 beats/min. Rhythm is regular. AL interval is normal. QRS interval is normal. cp QT interval is normal. T waves are Inverted in leads aVR, V2. Interpreted by me. Reviewed by me. Administered Medications: 16:30 Drug: NS 0.9% 1000 ml Route: IV; Rate: 1 bolus; Site: right antecubital; sg 18:48 Not Given (Patient Refused): TORadol - Ketorolac 15 mg IVP once sg Disposition: 01/01/20 18:16 Discharged to Home. Impression: Palpitations, Other chest pain. - Condition is Stable. - Discharge Instructions: Nonspecific Chest Pain, Palpitations. - Work release form, Medication Reconciliation Form, Thank You Letter, Antibiotic Education, Prescription Opioid Use form. - Follow up: Nichole Sultana MD; When: 2 - 3 days; Reason: Recheck today's complaints. - Problem is new. - Symptoms have improved. Addendum: 01/04/2020 18:54 Co-signature as Attending Physician, Cade Mazariegos MD. m a2 Signatures: Dispatcher [employer] Teresa Little RN RN aj1 Meng Hernandez RN RN sg Williams, Irene, RN RN iw Gurmeet Camacho, PA PA Cade No MD MD ma2 Corrections: (The following items were deleted from the chart) 01/01 18:25 18:16 01/01/2020 18:16 Discharged to Home. Impression: Palpitations; Other chest pain. iw Condition is Stable. Forms are Medication Reconciliation Form, Thank You Letter, Antibiotic Education, Prescription Opioid Use. Follow up: Nichole Sultana; When: 2 - 3 days; Reason: Recheck today's complaints. Problem is new. Symptoms have improved. cp 18:45 12/31 16:00 Constitutional: Negative for body aches, chills, fever, poor PO intake, cp cp 01/01 18:45 12/31 16:00 Eyes: Negative for injury, pain, redness, and discharge, cp cp 01/01 18:45 12/31 16:00 ENT: Negative for drainage from ear(s), ear pain, sore throat, difficulty cp swallowing, difficulty handling secretions, cp 01/01 18:45 12/31 16:00 Cardiovascular: Positive for chest pain, palpitations, Negative for edema, cp cp 01/01 18:45 12/31 16:00 Respiratory: Negative for cough, shortness of breath, wheezing, cp cp 01/01 18:45 12/31 16:00 Abdomen/GI: Negative for abdominal pain, nausea, vomiting, and diarrhea, cp constipation, anorexia, cp 01/01 18:45 12/31 16:00 Back: Negative for radiated pain, cp cp 01/01 18:45 12/31 16:00 : Negative for urinary symptoms, cp cp 01/01 18:45 12/31 16:00 Neuro: Negative for altered mental status, headache, syncope, near syncope, cp weakness, cp 01/01 18:45 12/31 16:00 All other systems are negative, cp cp
[2020-01-01 18:30] VITALS: TEMP 97.7
[2020-01-01 18:32] VITALS: BP 123/83; O2SAT 100
[2020-01-01 18:56] LABS: Urine Blood NEGATIVE (NEG); Urine Glucose NEGATIVE (NEG); Urine Protein NEGATIVE (NEG); Urine Specific Gravity 1.025 (1.005-1.030); Urine pH 6.5 (5.0-7.0)
--- NOTE | 2020-01-03 06:30 | EKG ---
Test Date: 2020-01-01 Test Time: 16:31:07 Metal Framer: TUAN MEASUREMENT RESULTS: Intervals: Rate: 80 MA: 138 QRSD: 94 QT: 370 QTc: 426 [place]: P: 65 MA: 138 QRS: 54 T: 33 INTERPRETIVE STATEMENTS: Normal sinus rhythm Possible Left atrial enlargement Borderline ECG Compared to ECG 07/04/2017 00:40:32 No significant changes Electronically Signed On 01-03-20 06:29:51 WOODYARD CRANE OPERATOR by Reilly Oviedo
== END 2020-01-01 18:25 | disposition home or self-care (01) ==
LOC: ER 15:24
DX: R07.89 Other chest pain (principal); F41.9 Anxiety disorder, unspecified
CPT/HCPCS: 93005; 85025; 80048; 36415; 83735; 81025; 85610; 85379; 80076; 80307 ×8; 84443; 81003; 84484; 84481; 71046; 99284; J7030

== ENCOUNTER 2020-07-16 18:23 | Emergency (ER) | payer BC, OTHER ==
--- OUTSIDE RECORDS SUMMARY | 2020-07-16 18:26 | XMS REPORT | Summary of Care ---
:1990 Author Organization [facility] - [facility] Address [address] [place] [id number] Care Team Providers Name Role Phone Zuly Bacon MD Primary Care Provider Reason for Visit Reason Comments Sinus Problem Ear Pain Sore Throat Encounter Details Date Type Department Care Team Description 05/25/2020 Urgent Care [facility] Graham Gann PA-C [address] [place] [id number] [facility] [place] [facility], [facility] Ur[facility] Care sinusitis, recurrence [address] [facility] not specif ied ([address] Dx) [place] [address] Allergies No Known Allergiesdocumented as of this encounter (statuses as of 05/25/2020) Medications Medication Sig Dispensed Refills Start Date End Date Status azithromycin 250 mg Take 1 tablet by 1 Package 0 03/11/2019 Active tabletIndications: mouth Bacterial URI SEE-INSTRUCTIONS . Take 500 mg day 1, then 250 mg days 2 to 5. codeine-guaifenesin Take 5 mL by 175 mL 0 03/11/2019 Active 10-100 mg/5 mL mouth every 6 solutionIndications: (six) hours as Bacterial URI needed for Cough. SERTraline 100 mg Take 200 mg by 0 Active tablet mouth daily. gabapentin 100 mg Take 100 mg by 0 Active capsule mouth 3 (three) times daily. clonazePAM 0.5 mg Take 0.5 mg by 0 Active tablet mouth 3 (three) times daily. ondansetron 4 mg Take 1 tablet by 12 tablet 0 10/27/2019 Active disintegrating mouth every 8 tabletIndications: (eight) hours as Nausea needed for Nausea and Vomiting (N/V). amoxicillin-clavulanat Take 1 tablet by 14 tablet 0 05/25/2020 06/01/2020 Active e (AUGMENTIN) 875-125 mouth 2 (two) mg per times daily for tabletIndications: 7 days. Acute frontal sinusitis, recurrence not specified documented as of this encounter (statuses as of 05/25/2020) Active Problems Problem Noted Date Mild persistent asthma with acute exacerbation 017 Crohn's disease 01/18/2017 documented as of this encounter (statuses as of 05/25/2020) Social History Tobacco Use Types Packs/Day Years Used Date Never Smoker Smokeless Tobacco: Never Used Alcohol Use Drinks/Week oz/Week Comments No 0 Standard drinks or equivalent 0.0 Rarely Sex Assigned at Date Recorded Not on file Job Start Date Occupation Industry Not on file Not on file Not on file Travel History Travel Start Travel End No recent travel history available. documented as of this encounter Last Filed Vital Signs Vital Sign Reading Time Taken Comments Blood Pressure 128/83 05/25/2020 8:44 AM CDT Pulse 83 05/25/2020 8:44 AM CDT Temperature 36.7 C (98.1 F) 05/25/2020 8:44 AM CDT Respiratory Rate 17 05/25/2020 8:44 AM CDT Oxygen Saturation 98% 05/25/2020 8:44 AM CDT Inhaled Oxygen Concentration - - Weight 79.4 kg (175 lb) 05/25/2020 8:44 AM CDT Height 160 cm (5' 3") 05/25/2020 8:44 AM CDT Body Mass Index 31 05/25/2020 8:44 AM CDT documented in this encounter Patient Instructions Patient InstructionsGraham Gann PA-C - 05/25/2020 8:40 AM CDT Patient Education Sinusitis (Antibiotic Treatment) The sinuses are air-filled spaces within the bones of the face. They connect to the inside of the nose.Sinusitisis an inflammation of the tissue that lines the sinuses. Sinusitis can occur during acold. It can also happen due to allergies to pollens and other particles in the air. Sinusitis can cause symptoms of sinus congestion and a feeling of fullness. A sinus infection causes fever, headache, and facial pain. There is often green or yellow fluid draining from the nose or into the back of the throat (post-nasal drip). You have been given antibiotics to treat this condition. Home care Take the full course of antibiotics as instructed. Don't stop taking them, even when you feel better. Drink plenty of water, hot tea, and other liquids as directed by the healthcare provider. This may help thin nasal mucus. It also may help your sinuses drain fluids. Heat may help soothe painful areas of your face. Use a towel soaked in hot water. Or, director of diagnostic imaging the shower and direct the warm spray onto your face. Using a vaporizer along with a menthol rub at night may also help soothe symptoms. Anexpectorantwith guaifenesin may help thin nasal mucus and help your sinuses drain fluids. Talk with your provider or pharmacists before taking an kmga-jtn-tviakwt (OTC) medicine if you have any questions about it or its side effects.. You can use an OTCdecongestant,unless a similar medicine was prescribed to you. Nasal sprays work the fastest. Use one that contains phenylephrine or oxymetazoline. First blow your nose gently. Then use the spray. Don't use these medicines more often than directed on the label. If you do, your symptoms may get worse. You may also take pills that contain pseudoephedrine. Dont use products that combine multiple medicines. This is because side effects may be increased. Read labels. You can also ask the pharmacist for help. (People with high blood pressure should not use decongestants. They can raise blood pressure.) Talk with your provider or pharmacist if you have any questions about the medicine.. OTCantihistaminesmay help if allergies contributed to your sinusitis. Talk with your provideror pharmacist if you have any questions about the medicine.. Don't use nasal rinses or irrigation during an acute sinus infection, unless your healthcare provider tells you to. Rinsing may spread the infection to other areas in your sinuses. Use acetaminophen or ibuprofen to control pain, unless another pain medicine was prescribed to you. If you have chronic liver or kidney disease or ever had a stomach ulcer, talk with your healthcareprovider before using these medicines. Never give aspirin to anyone under age 18 who is ill with a fever. It may cause severe liver damage. Don't smoke. This can make symptoms worse. Follow-up care Follow up with your healthcare provider, or as advised. When to seek medical advice Call your healthcare provider if any of these occur: Facial pain or headache that gets worse Stiff neck Unusual drowsiness or confusion Swelling of your forehead or eyelids Symptoms don't go away in 10 days Vision problems, such as blurred or double vision Fever of100.4F (38C)or higher, or as directed by your healthcare provider Call 911 Call 911 if any of these occur: Seizure Trouble breathing Feeling dizzy or faint Fingernails, skin or lips look blue, purple , or harry Prevention Here are steps you can take to help prevent an infection: Keep good hand washing habits. Dont have close contact with people who have sore throats, colds, or other upper respiratory infections. Dont smoke, and stay away from secondhand smoke. Stay up to date with of your vaccines. [employer] last reviewed this educational content on 10/25/201919990505-3074 [employer]. [address] [place] [address]. All rights reserved. This information is not intended as a substitute for professional medical care. Always follow your healthcare professional's instructions. Patient Education Sinusitis (Antibiotic Treatment) The sinuses are air-filled spaces within the bones of the face. They connect to the inside of the nose.Sinusitisis an inflammation of the tissue that lines the sinuses. Sinusitis can occur during acold. It can also happen due to allergies to pollens and other particles in the air. Sinusitis can cause symptoms of sinus congestion and a feeling of fullness. A sinus infection causes fever, headache, and facial pain. There is often green or yellow fluid draining from the nose or into the back of the throat (post-nasal drip). You have been given antibiotics to treat this condition. Home care Take the full course of antibiotics as instructed. Don't stop taking them, even when you feel better. Drink plenty of water, hot tea, and other liquids as directed by the healthcare provider. This may help thin nasal mucus. It also may help your sinuses drain fluids. Heat may help soothe painful areas of your face. Use a towel soaked in hot water. Or, director of diagnostic imaging the shower and direct the warm spray onto your face. Using a vaporizer along with a menthol rub at night may also help soothe symptoms. Anexpectorantwith guaifenesin may help thin nasal mucus and help your sinuses drain fluids. Talk with your provider or pharmacists before taking an ztej-hce-tupaguq (OTC) medicine if you have any questions about it or its side effects.. You can use an OTCdecongestant,unless a similar medicine was prescribed to you. Nasal sprays work the fastest. Use one that contains phenylephrine or oxymetazoline. First blow your nose gently. Then use the spray. Don't use these medicines more often than directed on the label. If you do, your symptoms may get worse. You may also take pills that contain pseudoephedrine. Dont use products that combine multiple medicines. This is because side effects may be increased. Read labels. You can also ask the pharmacist for help. (People with high blood pressure should not use decongestants. They can raise blood pressure.) Talk with your provider or pharmacist if you have any questions about the medicine.. OTCantihistaminesmay help if allergies contributed to your sinusitis. Talk with your provideror pharmacist if you have any questions about the medicine.. Don't use nasal rinses or irrigation during an acute sinus infection, unless your healthcare provider tells you to. Rinsing may spread the infection to other areas in your sinuses. Use acetaminophen or ibuprofen to control pain, unless another pain medicine was prescribed to you. If you have chronic liver or kidney disease or ever had a stomach ulcer, talk with your healthcareprovider before using these medicines. Never give aspirin to anyone under age 18 who is ill with a fever. It may cause severe liver damage. Don't smoke. This can make symptoms worse. Follow-up care Follow up with your healthcare provider, or as advised. When to seek medical advice Call your healthcare provider if any of these occur: Facial pain or headache that gets worse Stiff neck Unusual drowsiness or confusion Swelling of your forehead or eyelids Symptoms don't go away in 10 days Vision problems, such as blurred or double vision Fever of100.4F (38C)or higher, or as directed by your healthcare provider Call 911 Call 911 if any of these occur: Seizure Trouble breathing Feeling dizzy or faint Fingernails, skin or lips look blue, purple , or harry Prevention Here are steps you can take to help prevent an infection: Keep good hand washing habits. Dont have close contact with people who have sore throats, colds, or other upper respiratory infections. Dont smoke, and stay away from secondhand smoke. Stay up to date with of your vaccines. [employer] last reviewed this educational content on 10/25/201919995321-4316 [employer]. [address] [place] [address], [place] [address]. All rights reserved. This information is not intended as a substitute for professional medical care. Always follow your healthcare professional's instructions. documented in this encounter Progress Notes Graham Gann PA-C - 05/25/2020 8:40 AM CDT Cc: sinus pain Chief Complaint Patient presents with Sinus Problem Ear Pain Sore Throat Daria Arboleda is a 29 year old female. Sinus Problem Pain details: Location: Frontal and maxillary Quality: Aching Severity: Moderate Duration: 2 weeks Timing: Constant Progression: Unchanged Chronicity: New Context: allergies Relieved by: Nothing Ineffective treatments: Antibiotics Associated symptoms: congestion, ear pain, headaches and sore throat Associated symptoms: no chills, no cough, no fatigue, no fever, no nausea, no shortness of breath, no swollen glands, no vomiting and no wheezing Allergies Daria has No Known Allergies. Medications Outpatient Medications Prior to Visit Medication Sig Dispense Refill clonazePAM 0.5 mg tablet Take 0.5 mg by mouth 3 (three) times daily. gabapentin 100 mg capsule Take 100 mg by mouth 3 (three) times daily. ondansetron 4 mg disintegrating tablet Take 1 tablet by mouth every 8 (eight) hours as needed for Nausea and Vomiting (N/V). 12 tablet 0 SERTraline 100 mg tablet Take 200 mg by mouth daily. azithromycin 250 mg tablet Take 1 tablet by mouth SEE-INSTRUCTIONS. Take 500 mg day 1, then 250 mg days 2 to 5. 1 Package 0 codeine-guaifenesin 10-100 mg/5 mL solution Take 5 mL by mouth every 6 (six) hours as needed forCough. 175 mL 0 No facility-administered medications prior to visit. Histories Past Medical History: Diagnosis Date Anxiety Bilateral ovarian cysts Crohn's disease 01/18/2017 Mild persistent asthma with acute exacerbation 09/30/2017 UTI (urinary tract infection) Past Surgical History: Procedure Laterality Date APPENDECTOMY CHOLECYSTECTOMY COLONOSCOPY ESOPHAGOGASTRODUODENOSCOPY EXPLORATORY LAPAROSCOPY (SHX) Social History Socioeconomic History Marital status: Spouse name: Not on file Number of children: Not on file Years of education: Not on file Highest education level: Not on file Occupational History Not on file Social Needs Financial resource strain: Not on file Food insecurity: Worry: Not on file Inability: Not on file Transportation needs: Medical: Not on file Non-medical: Not on file Tobacco Use Smoking status: Never Smoker Smokeless tobacco: Never Used Substance and Sexual Activity Alcohol use: No Alcohol/week: 0.0 standard drinks Comment: Rarely Drug use: No Sexual activity: Yes control/protection: Other-see comments Comment: Nuvaring Lifestyle Physical activity: Days per week: Not on file Minutes per session: Not on file Stress: Not on file Relationships Social connections: Talks on phone: Not on file Gets together: Not on file Attends adventism service: Not on file Active member of club or organization: Not on file Attends meetings of clubs or organizations: Not on file Relationship status: Not on file Intimate partner violence: Fear of current or ex partner: Not on file Emotionally abused: Not on file Physically abused: Not on file Forced sexual activity: Not on file Other Topics Concern Not on file Social History Narrative Not on file Family History Problem Relation Age of Onset Hypertension Mother No Significant Medical Problems Father No Significant Medical Problems Sister Heart Maternal Grandfather Coronary Heart Disease Maternal Grandfather Cancer Paternal Grandfather bone Review of Systems Constitutional: Negative for chills, fatigue and fever. HENT: Positive for congestion, ear pain, postnasal drip and sore throat. Respiratory: Negative for cough, shortness of breath and wheezing. Gastrointestinal: Negative for abdominal pain, diarrhea, nausea and vomiting. Skin: Negative for pallor and rash. Neurological: Positive for headaches. Negative for dizziness. Vital Signs BP 128/83 (BP Location: Left arm, Patient Position: Sitting, BP CUFF SIZE: Adult Medium) | Pulse 83 | Temp 36.7 C (98.1 F) (Oral) | Resp 17 | Ht 5' 3" (1.6 m) | Wt 175 lb (79.4 kg) | SpO2 98% | BMI 31.00 kg/m Physical Exam Constitutional: She appears well-developed and well-nourished. HENT: Head: Normocephalic. Right Ear: Tympanic membrane and ear canal normal. Left Ear: Tympanic membrane and ear canal normal. Nose: Mucosal edema and rhinorrhea present. Right sinus exhibits no maxillary sinus tenderness and no frontal sinus tenderness. Left sinus exhibits no maxillary sinus tenderness and no frontal sinus tenderness. Mouth/Throat: Uvula is midline, oropharynx is clear and moist and mucous membranes are normal. Tonsillar exudate: augmentin. Neck: Neck supple. Cardiovascular: Normal rate and regular rhythm. Pulmonary/Chest: Effort normal and breath sounds normal. Lymphadenopathy: She has no cervical adenopathy. Skin: Skin is warm and dry. Nursing note and vitals reviewed. Assessment/Plan Acute sinusitis. Augmentin 875 bid for 7 days. Verbal and written home care and follow up instructions given to patient. documented in this encounter Plan of Treatment Health Maintenance Due Date Last Done Comments VARICELLA VACCINES (1 of 2 - 2-dose childhood series) 1989 PNEUMOCOCCAL 0-64 YEARS COMBINED SERIES (1 of 1 - 1994 PPSV23) DTaP,Tdap,and Td Vaccines (1 - Tdap) 1999 Depression Screening 2000 PAP SMEAR 2009 INFLUENZA VACCINE (#1) 2020 08/20/2018 documented as of this encounter Results Not on filedocumented in this encounter Visit Diagnoses Diagnosis Acute frontal sinusitis, recurrence not specified - Primary documented in this encounter Insurance Payer Benefit Plan Subscriber ID Effective Dates Phone Address Type / Group [facility] [id number] 2019[facility] [phone] [address] PPO/[address] [place] [id number] [place] [address] documented as of this encounter
--- OUTSIDE RECORDS SUMMARY | 2020-07-16 18:26 | XMS REPORT | Clinical Summary ---
:1990 Author Organization [facility] Address [address] [place] [address] Care Team Providers Name Role Phone Meng Tejada MD Primary Care Provider Allergies No Known Allergies Medications Medication Sig Dispensed Refills Start End Date Status Date clonAZEPAM Take 0.5 mg 0 Active (KlonoPIN) 0.5 MG by mouth 2 7 disintegrating (two) times a tablet day as needed. sertraline (ZOLOFT) Take 200 mg 0 Active 100 MG tablet by mouth daily. gabapentin Take 100 mg 0 Active (NEURONTIN) 100 mg by mouth 3 capsule (three) times a day. atenoloL (TENORMIN) Take 1 tablet 30 tablet 11 Active 50 MG (50 mg total) 0 21 tabletIndications: by mouth Chest pain, daily. unspecified type, SOB (shortness of breath), Lightheadedness omeprazole Take 20 mg by 0 02/17/20 Disco ntinued (PriLOSEC) 20 MG mouth daily. 20 capsule NUVARING 0.12-0.015 0 02/17/20 Discontinued mg/24 hr vaginal 7 20 ring promethazine TAKE ONE 50 tablet 2 02/17/20 Discont inued (PHENERGAN) 25 MG TABLET BY 7 20 tablet MOUTH EVERY 6 HOURS NEEDED FOR NAUSEA OR VOMITING dicyclomine (BENTYL) TAKE 1 TABLET 30 tablet 5 02/16 Discontinued 20 mg tablet (20 MG TOTAL) 7 20 BY MOUTH DAILY NEEDED (ABDOMINAL PAIN). PARoxetine (PAXIL) Take 10 mg by 0 0 Discontinued 20 MG tablet mouth 2 (two) 7 20 times a day. propranolol TAKE 1/2 - 1 0 02/17/20 Disco ntinued (INDERAL) 20 MG TABLET BY 7 20 (Reo rder) tablet MOUTH TWICE A DAY NEEDED FOR ANXIETY hyoscyamine (LEVSIN) Take 1-2 50 tablet 3 02/17/20 Discontinued 0.125 mg SL tablets by 7 20 tabletIndications: mouth every 4 Irritable bowel hours prn for syndrome with abdominal diarrhea pain hyoscyamine TAKE 1 TABLET 50 tablet 3 02/17/20 Disc ontinued (ANASPAZ,LEVSIN) BY MOUTH 8 20 0.125 mg tablet EVERY 4 HOURS NEEDED FOR CRAMPING propranoloL Take 1 tablet 270 tablet 1 03/09/20 Dis continued (INDERAL) 20 MG (20 mg total) 0 20 (Formulary tablet by mouth 3 change) (three) times a day. Active Problems Problem Noted Date Crohn's disease of small intestine with complication 0 02/07/2017 Encounters Date Type Specialty Care Team Description 04/01/2020 Telemedicine Cardiology Zoie, Chest pain, uns pecified type (Primary Dx); Velvet Neri MD SOB (shortne ss of breath); Lightheadedness ; Palpitations; Anxiety 03/29/2020 Travel 03/24/2020 Travel 03/17/2020 Telephone Cardiology Tammi Burt NP 03/09/2020 Telephone Consult Cardiology Zoie, Chest pain , unspecified type (Primary Dx); Velvet Neri MD SOB (shortne ss of breath); Lightheadedness ; Palpitations 03/09/2020 Travel 02/25/2020 Travel 02/25/2020 Orders Only Endocrinology Lashell Henry, Elevated C- reactive protein (CRP) (Primary Dx); ALIYA Tachycardia; Pericarditis, u nspecified chronicity, unspecified type 02/17/2020 Telemedicine Endocrinology Kaity, Hyperthyroidis m (Primary MD Portillo Dx) 01/07/2020 Telephone Endocrinology Emilia Ellison MA 09/16/2019 Telephone Gastroenterology Monique Trevino, IVETTE after 07/16/2019 Family History Medical History Relation Name Comments Hypertension Mother Cancer Paternal Grandfather Relation Name Status Comments Father Alive Maternal Grandfather Maternal Grandmother Mother Alive Paternal Grandfather Paternal Grandmother Social History Tobacco Use Types Packs/Day Years Used Date Never Smoker Smokeless Tobacco: Never Used Alcohol Use Drinks/Week oz/Week Comments Yes Sex Assigned at Date Recorded Not on file Job Start Date Occupation Industry Not on file Not on file Not on file Travel History Travel Start Travel End No recent travel history available. Last Filed Vital Signs Vital Sign Reading Time Taken Comments Blood Pressure 120/80 03/31/2020 4:01 PM CDT Pulse - - Temperature - - Respiratory Rate - - Oxygen Saturation - - Inhaled Oxygen Concentration - - Weight - - Height - - Body Mass Index - - Plan of Treatment Health Maintenance Due Date Last Done Comments CERVICAL CANCER SCREENING 2009 INFLUENZA VACCINE 08/25/2020 12/17/2019 Procedures Procedure Name Priority Date/Time Associated Diagnosis Comme nts TTE COMPLETE, WO Routine 03/29/2020 4:29 Chest pain, Results for this CONTRAST, W DOPPLER PM CDT unspecified type procedure are in (58772) SOB (shortness of the result s breath) section. Lightheadedness CRP HIGH SENSITIVITY Routine 02/19/2020 12:07 Hyperthyroidism Results for this PM CDT procedure are i n the results section. THYROID STIMULATING Routine 02/19/2020 12:07 Hyperthyroidism R esults for this IMMUNOGLOBULIN PM CDT procedure are in the results section. THYROID PEROXIDASE Routine 02/19/2020 12:07 Hyperthyroidism Re sults for this ANTIBODY PM CDT procedure are i n the results section. COMPREHENSIVE Routine 02/19/2020 12:07 Hyperthyroidism Results for this METABOLIC PANEL PM CDT procedure ar e in the results section. CBC WITH PLATELET AND Routine 02/19/2020 12:07 Hyperthyroidism Results for this DIFFERENTIAL PM CDT procedure are i n the results section. THYROGLOBULIN ANTIBODY Routine 02/19/2020 12:07 Hyperthyroidis m Results for this PM CDT procedure are i n the results section. T3, FREE Routine 02/19/2020 12:07 Hyperthyroidism Results for this PM CDT procedure are i n the results section. T4, FREE Routine 02/19/2020 12:07 Hyperthyroidism Results for this PM CDT procedure are i n the results section. THYROID STIMULATING Routine 02/19/2020 12:07 Hyperthyroidism R esults for this HORMONE PM CDT procedure are i n the results section. after 07/16/2019 Results Transthoracic Echocardiogram Complete, (w Contrast, Strain and 3D if needed) (03/29/2020 4:29 PM CDT) Specimen Narrative Performed At [facility] Echo cardiography Report Pat.Name: DARIA ARBOLEDA Pat.ID: [id number] St.Date: 03/29/2020 Refer.MD: VELEVT GUZMAN MD Exam Time: 4:03:00 PM Study Type:R outine Echo Height: 63in Weight: 195.59lb BSA: 1.92 m2 Ag e: 1990,29Y Sex: FEMALE BP: 139/75 HR: 74 bpm Sonogrphr: Tina Ha, RCS, RCCS, CCT Pat. Stat.:Outpatient Room: [address] Vol: [facility], Study Sta tus:Final Echo Event ID:[id number] Order ID: [id number] Reason for Study:Chest pain, unspecified type [R07.9 (ICD-10-CM)]; SOB (shortness of breath)[R06.02 (ICD-10-CM)]; Lightheaded ness [R42 (ICD-10-CM)] Procedures: 2D Echo, Colorflow Doppler, Strain Race: C SUMMARY: Normal 2D and Doppler examination. FINDINGS: LV: LV size is normal. Normal a verage LV global longitudinal strain at -19%. LV EF is normal. Overall wall motion is normal. Estimated EF is 6 0-64%. RV: RV size is normal. RV systo lic function is normal. LA: LA volume is upper limits o f normal. RA: RA size is normal. AO: Aortic root diameter is nor mal. HENNA: No pericardial effusion. AV: No structural AV abnormalit ies noted. MV: No structural MV abnormalit ies noted. A trace of mitral regurgitation. PV: No structural PV abnormalit ies noted. Mild pulmonic regurgitation. TV: No structural TV abnormalit ies noted. A trace of tricuspid regurgitation Welsh: Normal diastolic function an d LV filling pressures. Other: Estimated PA systolic pressu re is 26 mmHg, assuming a mean RAP of 5 mmHg. MEASUREMENTS: 2D Parasternal Long [place] Ao An 1.9 cm LVPWd 0.73 cm Ao Rtd 2.9 cm Index 1.5 cm/m2 LA Ds 4.2 cm IVSd 0.71 cm RWT 0.27 LVIDd 5.4 cm Index 2.8 cm/m2 LV Mass 136 g (87-12 9) LVIDs 3.2 cm LVM In dex 71 g/m LV%fs 40 % LVOT 1.9 cm LA Sng Plane LA Area 21 cm (8.8-23.4) LA Vol 64 ml Index 33 ml/m2 LA LngAx 5.7 cm LVOT LVOT Area 2.9 cm DOPPLER LVOT Stroke Vol LVOT TVI 21 cm LVOT LVOT SV 62 ml SVi 32 ml/m Signed 03/29/2020 04:49 PM Ernie Rodney MD Procedure Note Interface, Radiology Results In - 2019 4:50 PM CDT [facility] Echocardiography Report Pat.Name: DARIA ARBOLEDA I D: [id number] .Date: 03/29/2020 Refer .MD: VELVET GUZMAN MD Exam Time: 4:03:00 PM Study Type:Routine Echo Height: 63in Weigh t: 195.59lb BSA: 1.92 m2 Age: 5 1990,29Y Sex: FEMALE BP: 139/75 HR: 74 bpm Sonogrphr: Tina Ha, RCS, RCCS, CCT Pat. Stat.:Outpatient Room: -[address] [place] [address] Vol: [facility], Study Status:Final Echo Event ID:[id number] Order ID: [id number] Reason for Study:Chest pain, unspecified type [R07.9 (ICD-10-CM)]; SOB (shortness of breath)[R06.02 (ICD-10-CM)]; Lightheaded ness [R42 (ICD-10-CM)] Procedures: 2D Echo, Colorflow Doppler, Strain Race: C SUMMARY: Normal 2D and Doppler examination. FINDINGS: LV: LV size is normal. Normal aver age LV global longitudinal strain at -19%. LV EF is kenan l. Overall wall motion is normal. Estimated EF is 60-64% . RV: RV size is normal. RV systolic function is normal. LA: LA volume is upper limits of n ormal. RA: RA size is normal. AO: Aortic root diameter is normal . HENNA: No pericardial effusion. AV: No structural AV abnormalities noted. MV: No structural MV abnormalities noted. A trace of mitral regurgitation. PV: No structural PV abnormalities noted. Mild pulmonic regurgitation. TV: No structural TV abnormalities noted. A trace of tricuspid regurgitation Welsh: Normal diastolic function and LV filling pressures. Other: Estimated PA systolic pressure is 26 mmHg, assuming a mean RAP of 5 mmHg. MEASUREMENTS: 2D Parasternal Long [place] Ao An 1.9 cm LVPW d 0.73 cm Ao Rtd 2.9 cm Inde x 1.5 cm/m2 LA Ds 4.2 cm IVSd 0.71 cm RWT 0.27 LVIDd 5.4 cm Inde x 2.8 cm/m2 LV Mass 136 g (87-129) LVIDs 3.2 cm LVM Index 71 g/m LV%fs 40 % LVOT 1.9 cm LA Sng Plane LA Area 21 cm (8.8-23.4) L A Vol 64 ml Index 33 ml/m2 LA LngAx 5.7 cm LVOT LVOT Area 2.9 cm DOPPLER LVOT Stroke Vol LVOT TVI 21 cm LVOT LVOT SV 62 ml SVi 32 ml/m Signed 03/29/2020 04:49 PM Ernie Rodney MD Performing Organization Address [facility] Phone Number [facility] [address] [place] [address] Thyroglobulin antibody (02/19/2020 12:07 PM CDT) Pathologist Sig nature Thyroglobulin Ab <1 < or = 1 IU/mL [facility]IRVI NG II Specimen Blood Narrative Performed At FASTING:NO [facility] FASTING: NO Resulting Agency Comment Performing Organization Information: Site ID: [id number] Name: [facility] Address: [address] [place] [phone] Director: Dr. Aditya deras Performing Organization Address [facility] Phone Number [employer] [address] Thyroperoxidase antibody (02/19/2020 12:07 PM CDT) Pathologist Sig nature Thyroperoxidase Ab <1 <9 IU/mL [facility] NG II Specimen Blood Narrative Performed At FASTING:NO [facility] FASTING: NO Resulting Agency Comment Performing Organization Information: Site ID: [id number] Name: [facility] Address: [address] [place] [phone] Director: Dr. Aditya deras Performing Organization Address [facility]/Zipcode Phone Number [facility] II [address] [facility]. [place] [address] Thyroid stimulating immunoglobulin (02/19/2020 12:07 PM CDT) Thyroid stimulating <89 <140 % [facility] immunoglobulin Comment: baseline DIAGNOSTICS/NI [facility] Thyroid stimulating immunoglobulins (TSI) can engage t he TSH receptors resulting in hyperthyroidism in Graves' dise ase patients. TSI levels can be useful in monitoring the clinical outcome of Graves' disease as well as assessi ng the potential for hyperthyroidism from maternal- jang sfer. TSI results greater than or equal to (>=) 140% of the Reference Control are considered positive. NOTE: A serum TSH level greater than 350 micro-Interna tional Units/mL can interfere with the TSI bioassay and samra venegas give false positive results. Patients who are and are suspected of having hyperthyroidism should have both a TSI and human Chori onic Gonadotropin (hCG) tests measured. A serum hCG level g reater than 40,625 mIU/mL can interfere with the TSI bioassay and may give false negative results. In these patients it is recommended that a second TSI is obtained when the hCG concentration falls below 40,625 mIU/mL (usually after approximately 20-weeks gestation). Specimen Blood Narrative Performed At FASTING:NO [facility] FASTING: NO Resulting Agency Comment Performing Organization Information: Site ID: [id number] Name: [facility], Address: [address] [place] [phone] Director: Dasha Carrillo MD,PhD,MB A Performing Organization Address City/State/Zipcode Phone Number [facility] [address] [place] [phone] [facility] CBC with platelet and differential (02/19/2020 12:07 PM CDT) Pathologist Sig nature WBC 6.8 3.8 - 10.8 [facility] Thousand/uL [place] RBC 4.38 3.80 - 5.10 [facility] Million/uL [place] HGB 12.6 11.7 - 15.5 [facility] g/dL [place] HCT 38.7 35.0 - 45.0 % [facility] [place] MCV 88.4 80.0 - 100.0 fL [facility] [place] MCH 28.8 27.0 - 33.0 pg [facility] [place] MCHC 32.6 32.0 - 36.0 [facility] g/dL [place] RDW 13.4 11.0 - 15.0 % [facility] [place] Platelet count 273 140 - 400 [facility] Thousand/uL [place] MPV 10.9 7.5 - 12.5 fL [facility] [place] Neutrophils, absolute 3,930 1,500 - 7,800 [facility] cells/uL [place] Lymphocytes, absolute 2,067 850 - 3,900 [facility] cells/uL [place] Monocytes, absolute 517 200 - 950 [facility] cells/uL [place] Eosinophils, absolute 258 15 - 500 [facility] cells/uL [place] Basophils, absolute 27 0 - 200 [facility] cells/uL [place] Neutrophils 57.8 % [facility] [place] Lymphocytes 30.4 % [facility] [place] Monocytes 7.6 % [facility] [place] Eosinophils 3.8 % [facility] [place] Basophils + RC 0.4 % [facility] [place] Specimen Blood Narrative Performed At FASTING:NO [facility] FASTING: NO Resulting Agency Comment Performing Organization Information: Site ID: [id number] Name: [facility] Address: [address] [place] [phone] Director: Aditya Lundy Performing Organization Address City/State/Zipcode Phone Number [employer] [address] [address] CRP high sensitivity (02/19/2020 12:07 PM CDT) CRP, high 4.0 (H) mg/L [facility] sensitivity Comment: DIAGNOSTICS-IRVI Reference Range NG II Optimal <1.0 Lorene PS et al. Endocr Pract.2017;23(Suppl 2):1-87 . For ages >17 Years: hs-CRP mg/L Risk According to AHA/CDC Guidelines <1.0 Lower relative cardiovascular risk. 1.0-3.0 Average relative cardiovascular risk. 3.1-10.0 Higher relative cardiovascular risk. Consider retesting in 1 to 2 weeks to exclude a benign transient elevatio n in the baseline CRP value secondary to infection or inflammation. >10.0 Persistent elevation, upon retesting, may be associated with infection an d inflammation. Specimen Blood Narrative Performed At FASTING:NO [facility] FASTING: NO Resulting Agency Comment Performing Organization Information: Site ID: Name: [facility] Address: [address] [place] [address] Director: Dr. Aditya deras Performing Organization Address [facility] Phone Number [facility] [address] [place] [address] T3, free (02/19/2020 12:07 PM CDT) Pathologist Sig nature T3, free 2.9 2.3 - 4.2 pg/mL [facility] [place] Specimen Blood Narrative Performed At FASTING:NO [facility] FASTING: NO Resulting Agency Comment Performing Organization Information: Site ID: [id number] Name: [facility] Address: [address] [place] [phone] Director: Aditya Lundy Performing Organization Address [facility] Phone Number [employer] [address] [address] Thyroid stimulating hormone (02/19/2020 12:07 PM CDT) Pathologist Sig nature TSH 1.28 mIU/L [facility] Comment: [place] Reference Range > or = 20 Years 0.40-4.50 Ranges First trimester 0.26-2.66 Second trimester 0.55-2.73 Third trimester 0.43-2.91 Specimen Blood Narrative Performed At FASTING:NO [facility] FASTING: NO Resulting Agency Comment Performing Organization Information: Site ID: [id number] Name: [facility] Address: [address] [place] [phone] Director: Aditya Lundy Performing Organization Address [facility] Phone Number [employer] [address] [address] T4, free (02/19/2020 12:07 PM CDT) Pathologist Sig nature T4, free 0.9 0.8 - 1.8 ng/dL [facility] [employer] [place] Specimen Blood Narrative Performed At FASTING:NO [facility] FASTING: NO Resulting Agency Comment Performing Organization Information: Site ID: [id number] Name: [facility] Address: [address] [place] [phone] Director: Aditya Lundy Performing Organization Address [facility]/Zipcode Phone Number [employer] [place] [address] [place] [address] Comprehensive metabolic panel (02/19/2020 12:07 PM CDT) Pathologist [facility] Glucose 87 65 - 139 [facility] Comment: mg/dL [place] Non-fasting reference interval BUN 13 7 - 25 mg/dL [facility] [place] Creatinine 0.70 0.50 - 1.10 [facility] mg/dL [place] EGFR Non-Afr. 115 > OR = 60 [facility] Liberian mL/min/1.73m [place] 2 EGFR 134 > OR = 60 [facility] Liberian mL/min/1.73m [place] 2 BUN/creatinine NOT APPLICABLE 6 - 22 [facility] ratio (calc) [place] Sodium 139 135 - 146 [facility] mmol/L [place] Potassium 4.1 3.5 - 5.3 [facility] mmol/L [place] Chloride 103 98 - 110 [facility] mmol/L [place] CO2 28 20 - 32 [facility] mmol/L [place] Calcium 9.2 8.6 - 10.2 [facility] mg/dL [place] Protein 6.6 6.1 - 8.1 [facility] g/dL [place] Albumin, S 4.0 3.6 - 5.1 [facility] g/dL [place] Globulin, total 2.6 1.9 - 3.7 [facility] g/dL (calc) [place] Albumin/globulin 1.5 1.0 - 2.5 [facility] ratio (calc) [place] Total bilirubin 0.3 0.2 - 1.2 [facility] mg/dL [place] Alkaline 70 31 - 125 U/L [facility] phosphatase [place] AST 19 10 - 30 U/L [facility] [place] ALT 55 (H) 6 - 29 U/L [facility] [place] Specimen Blood Narrative Performed At FASTING:NO [facility] FASTING: NO Resulting Agency Comment Performing Organization Information: Site ID: [id number] [facility]: [facility] lopes Address: [address] [place] [address] Director: Aditya Lundy Performing Organization Address City/[facility]/Zipcode Phone Number [employer] [place] [address] [place] [address] after 07/16/2019 Advance Directives For more information, please contact: [phone] Type Date Recorded 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
[2020-07-16 19:43] LABS: Absolute Lymphocytes (CBC) 2.1 K/uL (0.7-4.9); Basophils % 1.1 % (0-1.3); Hematocrit 40.2 % (36.0-45.0); Lymphocytes % 31.4 % (15.3-44.8); MPV 9.8 fL (7.6-11.3)
[2020-07-16 19:59] LABS: BUN Blood Urea Nitrogen 14 mg/dL (7-18); Bicarbonate 26 mmol/L (21-32); Glucose Level 99 mg/dL (74-106); Potassium 3.6 mmol/L (3.5-5.1); Sodium Level 141 mmol/L (136-145); Troponin (Emerg Dept Use Only) < 0.02 ng/mL (0.0-0.045)
--- NOTE | 2020-07-16 20:20 | ER ---
Nurse's Notes [facility] Name: Daria Arboleda Age: 30 yrs Sex: Female : 1990 Arrival Date: 07/16/2020 Time: 18:25 Bed 26 Private MD: Diagnosis: Anxiety disorder, unspecified;Chest pain, unspecified Presentation: 07/16 18:29 Chief complaint: Patient states: "states panic attack started at noon, including sharp jd3 pains in chest that radiates to shoulder. I just started taking ambien for trouble sleeping but still havent been able to sleep. psychiatrist wanted me to come in and get checked since i was having the chest pain.". Coronavirus screen: At this time, the client does not indicate any symptoms associated with coronavirus-19. Ebola Screen: Patient negative for fever greater than or equal to 101.5 degrees Fahrenheit, and additional compatible Ebola Virus Disease symptoms. Initial Sepsis Screen: Does the patient meet any 2 criteria? No. Patient's initial sepsis screen is negative. Does the patient have a suspected source of infection? No. Patient's initial sepsis screen is negative. Risk Assessment: Do you want to hurt yourself or someone else? Patient reports no desire to harm self or others. Onset of symptoms was July 16, 2020. 18:29 Method Of Arrival: Ambulatory jd3 18:29 Acuity: AMARJIT 3 jd[address] THE [address]: 18:37 LMP 07/16/2020 jd3 Historical: - Allergies: 18:37 No Known Allergies; jd3 - Home Meds: 18:37 clonazepam 0.5 mg oral tab [Active]; buspirone 7.5 mg Oral tab 1 tab 2 times per day jd3 [Active]; Zoloft 200 mg Oral twice a day [Active]; Adderall XR 10 mg Oral cp24 once daily [Active]; Ambien 10 mg Oral tab 1 tab once daily [Active]; - PMHx: 18:37 Crohn's; Depression; Anxiety; jd3 - PSHx: 18:37 Appendectomy; Cholecystectomy; fallopian tube removal; jd3 - Immunization history:: Adult Immunizations up to date. - Social history:: Smoking status: Patient denies any tobacco usage or history of. - Family history:: not pertinent. - Hospitalizations: : No recent hospitalization is reported. Screenin:10 Abuse screen: Denies threats or abuse. Nutritional screening: No deficits noted. ea Tuberculosis screening: No symptoms or risk factors identified. Fall Risk None identified. Assessment: 19:15 General: Appears in no apparent distress. Behavior is appropriate for age. Pain: ea Complains of pain in chest Pain does not radiate. Pain began 1 day ago. Neuro: Level of Consciousness is awake, alert, obeys commands, Oriented to person, place, time, situation. Cardiovascular: Patient's skin is warm and dry. Respiratory: Airway is patent Respiratory effort is even, unlabored, Respiratory pattern is regular, symmetrical. Derm: Skin is pink, warm \\T\\ dry. 20:30 Reassessment: Patient and/or family updated on plan of care and expected duration. Pain ea level reassessed. Patient is alert, oriented x 3, equal unlabored respirations, skin warm/dry/pink. Discharge instruction given to patient, verbalized the understanding of instruction. Vital Signs: 18:29 BP 120 / 83; Pulse 93; Temp 98.7; Pulse Ox 99% ; Weight 88.45 kg; Height 5 ft. 3 in. jd3 (160.02 cm); Pain 3/10; 20:25 BP 138 / 88; Pulse 88; Resp 18; Pulse Ox 99% on R/A; ea 18:29 Body Mass Index 34.54 (88.45 kg, 160.02 cm) jd3 ED Course: 18:25 Patient arrived in ED. ag5 18:33 Triage completed. jd3 18:37 Arm band placed on. jd3 19:04 Kenny Parker MD is Attending Physician. rn 19:10 Patient has correct armband on for positive identification. Placed in gown. Bed in low ea position. Call light in reach. color television console monitor on. 19:10 Patient maintains SpO2 saturation greater than 95% on room air. ea 19:17 Monet Taylor, RN is Primary Nurse. ea 19:30 Inserted saline lock: 22 gauge in right hand, using aseptic technique. Blood collected. ea 20:17 XRAY Chest (1 view) In Process Unspecified. EDMS 20:30 No provider procedures requiring assistance completed. IV discontinued, intact, ea bleeding controlled, No redness/swelling at site. Pressure dressing applied. Administered Medications: 20:29 Drug: Ativan 1 mg Route: IVP; Site: right hand; ea 20:30 Follow up: Response: Medication administered at discharge. ea Outcome: 19:30 Discharged to home ambulatory. ea 19:30 Condition: stable 19:30 Discharge instructions given to patient, Instructed on discharge instructions, follow up and referral plans. Demonstrated understanding of instructions, follow-up care. 20:20 Discharge ordered by . rn 20:34 Patient left the ED. ea Signatures: Dispatcher [employer] EDKenny Liu MD MD rn Antunez, Elena, RN RN ea Davies, Jonathon, RN RN Jonas Celaya ag5
--- NOTE | 2020-07-16 20:20 | EDPHYS ---
Physician Documentation [facility] Name: Daria Arboleda Age: 30 yrs Sex: Female : 1990 Arrival Date: 07/16/2020 Time: 18:25 Bed 26 Private MD: ED Physician Kenny Parker HPI: 07/16 19:41 This 30 yrs old Female presents to ER via Ambulatory with complaints of rn Anxiety, Chest Pain. 19:41 The patient or guardian reports chest pain that is located primarily in the anterior rn chest wall. The pain. 19:42 The pain radiates to the right shoulder. The chest pain is described as aching, sharp. rn Duration: The patient or guardian reports multiple episodes, that are intermittent. Modifying factors: The symptoms are alleviated by nothing. the symptoms are aggravated by nothing. Severity of pain: At its worst the pain was mild in the emergency department the pain has improved. The patient has experienced similar episodes in the past. The patient has been recently seen by a physician:. Reports chest pain, central, radiates to right shoulder, identical to previous episodes of anxiety and stress reactions/panic attacks. Needs more medication from psychiatrist who sent her here to make sure chest pain not cardiac in origin. Reports has these symptoms often, has not been sleeping, prescribed ambien which is new and benzos. No trauma/fever/sob/cough. Reports under a lot of stress lately. . 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 - Social history:: Smoking status: Patient denies any tobacco usage or history of. - Family history:: not pertinent. - Hospitalizations: : No recent hospitalization is reported. ROS: 19:42 Constitutional: Negative for fever, chills, and weight loss, ENT: Negative for injury, rn pain, and discharge, Neck: Negative for injury, pain, and swelling, Cardiovascular: Negative for palpitations, and edema, Respiratory: Negative for shortness of breath, cough, wheezing, and pleuritic chest pain, Abdomen/GI: Negative for abdominal pain, nausea, vomiting, diarrhea, and constipation, MS/Extremity: Negative for injury and deformity, Skin: Negative for injury, rash, and discoloration, Neuro: Negative for headache, weakness, numbness, tingling, and seizure, Psych: Negative for suicide ideation, homicidal ideation, and hallucinations, + anxiety Exam: 19:42 Constitutional: This is a well developed, well nourished patient who is awake, alert, rn and in no acute distress. Head/Face: Normocephalic, atraumatic. Eyes: Pupils equal round and reactive to light, extra-ocular motions intact. Lids and lashes normal. Conjunctiva and sclera are non-icteric and not injected. Cornea within normal limits. Periorbital areas with no swelling, redness, or edema. Neck: Trachea midline, no masses palpated, and no cervical lymphadenopathy. Supple, full range of motion without nuchal rigidity, or vertebral point tenderness. No Meningismus. Chest/axilla: Normal chest wall appearance and motion. Nontender with no deformity. Cardiovascular: Regular rate and rhythm. No pulse deficits. Respiratory: Speaking full sentences, unlabored Abdomen/GI: soft, non-tender Skin: Warm, dry with normal turgor. Normal color with no rashes, no lesions, and no evidence of cellulitis. MS/ Extremity: Pulses equal, no cyanosis. Neurovascular intact. Full, normal range of motion. Equal circumference. Neuro: Awake and alert, GCS 15, oriented to person, place, time, and situation. Cranial nerves II-XII grossly intact. Motor strength 5/5 in all extremities. Sensory grossly intact. Cerebellar exam normal. Normal gait. 20:00 ECG was reviewed by the Attending Physician. rn Vital Signs: 18:29 BP 120 / 83; Pulse 93; Temp 98.7; Pulse Ox 99% ; Weight 88.45 kg; Height 5 ft. 3 in. jd3 (160.02 cm); Pain 3/10; 20:25 BP 138 / 88; Pulse 88; Resp 18; Pulse Ox 99% on R/A; ea 18:29 Body Mass Index 34.54 (88.45 kg, 160.02 cm) jd3 MDM: 19:04 Patient medically screened. rn 20:18 Differential diagnosis: anxiety, chest wall pain, costochondritis, pleurisy, rn pneumothorax. Data reviewed: vital signs, nurses notes, lab test result(s), EKG, radiologic studies, plain films, and as a result, I will discharge patient. Counseling: I had a detailed discussion with the patient and/or guardian regarding: the historical points, exam findings, and any diagnostic results supporting the discharge/admit diagnosis, lab results, radiology results, the need for outpatient follow up, to return to the emergency department if symptoms worsen or persist or if there are any questions or concerns that arise at home. Special discussion: Based on the patient's history, exam, and Dx evaluation, there is no indication for emergent intervention or inpatient Tx. It is understood by the patient/guardian that if the Sx's persist or worsen they need to return immediately for re-evaluation. I discussed with the patient/guardian in detail that at this point there is no indication for admission to the hospital. It is understood, however, that if the symptoms persist or worsen the patient needs to return immediately for re-evaluation. ED course: Neg trop/ecg/cxr, patient requests anxiety medication/sedative to help her sleep since pharmacies are closed, plans to contact her psychiatrist tomorrow/tonight for new prescription as they discussed.. 07/16 19:12 Order name: CBC with Diff; Complete Time: 19:56 rn 07/16 19:12 Order name: Basic Metabolic Panel; Complete Time: 20:00 rn 07/16 19:12 Order name: Troponin (emerg Dept Use Only); Complete Time: 20:00 rn 07/16 19:12 Order name: EKG; Complete Time: 19:13 rn 07/16 19:12 Order name: XRAY Chest (1 view); Complete Time: 20:26 rn 07/16 19:12 Order name: IV Start; Complete Time: 20:13 rn 07/16 19:12 Order name: EKG - Nurse/Tech; Complete Time: 20:13 rn EC:00 Rate is 81 beats/min. Rhythm is regular. QRS [place] is Normal. [place] interval is normal. QRS rn interval is normal. QT interval is normal. No Q waves. T waves are Normal. No ST changes noted. Clinical impression: Normal ECG. Interpreted by me. Reviewed by me. Administered Medications: 20:29 Drug: Ativan 1 mg Route: IVP; Site: right hand; ea 20:30 Follow up: Response: Medication administered at discharge. ea Disposition: 07/16/20 20:20 Discharged to Home. Impression: Anxiety disorder, unspecified, Chest pain, unspecified. - Condition is Stable. - Discharge Instructions: Nonspecific Chest Pain, Generalized Anxiety Disorder. - Medication Reconciliation Form, Thank You Letter, Antibiotic Education, Prescription Opioid Use form. - Follow up: Private Physician; When: As needed; Reason: Recheck today's complaints, Re-evaluation by your physician. - Problem is an ongoing problem. - Symptoms have improved. Signatures: Dispatcher [employer] EDMS Kenny Parker MD MD rn Antunez, Elena, RN RN ea Davies, Jonathon, RN RN jd3 Corrections: (The following items were deleted from the chart) 20:34 20:20 07/16/2020 20:20 Discharged to Home. Impression: Anxiety disorder, unspecified; ea Chest pain, unspecified. Condition is Stable. Forms are Medication Reconciliation Form, Thank You Letter, Antibiotic Education, Prescription Opioid Use. Follow up: Private Physician; When: As needed; Reason: Recheck today's complaints, Re-evaluation by your physician. Problem is an ongoing problem. Symptoms have improved. rn
--- NOTE | 2020-07-16 20:25 | RAD REPORT ---
EXAM DESCRIPTION: Viviana Single View07/16/2020 8:17 pm CLINICAL HISTORY: Chest pain COMPARISON: December 2019 FINDINGS: The lungs appear clear of acute infiltrate. The heart is normal size IMPRESSION: No acute abnormalities displayed
[2020-07-16] MEDS ORDERED: LORazepam 2 MG/ML VIAL ONE (20:38)
== END 2020-07-16 20:34 | disposition home or self-care (01) ==
LOC: ER 18:23
DX: F41.9 Anxiety disorder, unspecified (principal); R07.9 Chest pain, unspecified
CPT/HCPCS: 36415; 71045; 80048; 84484; 85025; 93005; 96374; 99285

== ENCOUNTER 2021-07-04 09:37 | Emergency (ER) | payer BC ==
[2021-07-04 10:02] LABS: Urine Blood Negative (Negative); Urine Glucose Negative (Negative); Urine Protein Negative (Negative); Urine pH 5.5 (5.0-7.0)
[2021-07-04] MEDS ORDERED: KETOROLAC 30 MG/ML INJ ONE (10:17)
[2021-07-04 10:45] LABS: Urine Bacteria 20-50 /HPF (<20); Urine RBC <5 /HPF (NONE SEEN)
--- NOTE | 2021-07-04 10:57 | RAD REPORT ---
EXAM DESCRIPTION: CT - Stone Protocol - 07/04/2021 10:08 am CLINICAL HISTORY: FLANK PAIN, right-side COMPARISON: Abdomen Pelvis W Contrast dated 11/22/2016 TECHNIQUE: Axial 3 mm thick images were obtained without oral or IV contrast. The [id number] span s the entirety of the system including uppermost abdomen and lung bases. All CT scans are performed using dose optimization technique as appropriate and may include automated exposure control or mA/KV adjustment according to patient size. FINDINGS: No hydronephrosis is present and no obstructing ureteral calculi. No suspicious renal mass es. Isodense masses and pyelonephritis are not excluded on a stone protocol CT scan. No significant a drenal finding. Urinary bladder is fully contracted limiting assessment. No bladder calculi seen. Prominent size uterus again noted. No ovarian abnormality suspected. Uterine and ovarian detail are l imited in a noncontrast study. Imaged portions of the liver, spleen and pancreas show no suspicious findings on non-contrast imaging . Cholecystectomy clips are present. No biliary tree dilatation. No suspicious bowel findings. Moderate stool volume is present throughout the colon. No appendicitis findings. Sub centimeter size lymph nodes are seen. No hernia, mass or bulky lymphadenopathy noted. No free air, free fluid or inflammatory stranding. No acute bone finding. L5 pars defects are present with no L5 subluxation. IMPRESSION: No hydronephrosis, obstructing calculus or acute finding. Isodense masses and pyelonephritis are not excluded on stone protocol technique. No gross uterine or ovarian abnormality seen. Detail is limited in a noncontrast study.
--- NOTE | 2021-07-04 11:22 | ER ---
Nurse's Notes [facility] Name: Daria Arboleda Age: 31 yrs Sex: Female : 1990 Arrival Date: 07/04/2021 Time: 09:40 Bed Waiting Private MD: Lynn Grissom K Diagnosis: Low back pain Presentation: 07/04 09:42 Chief complaint: Patient states: Rt Flank pain. da3 09:42 Method Of Arrival: Ambulatory da3 09:45 Coronavirus screen: Client denies travel out of the [place] in the last 14 days. At this da3 time, the client does not indicate any symptoms associated with coronavirus-19. Ebola Screen: No symptoms or risks identified at this time. Risk Assessment: Do you want to hurt yourself or someone else? Patient reports no desire to harm self or others. 09:45 Acuity: AMARJIT 3 da3 Triage Assessment: 09:46 General: Appears distressed, Behavior is calm. da3 Historical: - Allergies: 09:54 No Known Allergies; da3 - PMHx: 09:43 Kidney stone; da3 - Immunization history:: Client reports having NOT received the Covid vaccine. Vital Signs: 09:44 BP 131 / 90; Pulse 91; Resp 22; Temp 98.2; Pulse Ox 99% on R/A; da3 ED Course: 09:40 Patient arrived in ED. mr 09:41 Lynn Grissom MD is Private Physician. mr 09:41 Ines Gordon FNP-C [facility]. kb 09:41 Kenny Parker MD is Attending Physician. kb 09:46 Triage completed. da3 10:07 CT Stone Protocol In Process Unspecified. EDMS 11:21 Lynn Grissom MD is Referral Physician. kb Administered Medications: 10:04 Drug: Ketorolac 30 mg Route: IM; Site: left deltoid; da3 Outcome: 11:21 Discharge ordered by . kb 11:27 Patient left the ED. da3 Signatures: Dispatcher [employer] EDMS Ines Gordon FNP-C FNP-Ckb Rivera, Mary mr Allan, David, RN RN da3 Corrections: (The following items were deleted from the chart) 09:44 09:43 PMHx: Crohn's; da3 da3 09:44 09:43 PMHx: Anxiety; da3 da3 09:44 09:43 PMHx: Depression; da3 da3
--- NOTE | 2021-07-04 11:22 | EDPHYS ---
Physician Documentation [facility] Name: Daria Arboleda Age: 31 yrs Sex: Female : 1990 Arrival Date: 07/04/2021 Time: 09:40 Bed Waiting Private MD: Lynn Grissom K ED Physician Kenny Parker HPI: 07/04 12:10 This 31 yrs old Female presents to ER via Ambulatory with complaints of kb Possible Kidney Stone. 12:10 The patient presents with pain that is acute. The symptoms are located in the low back. kb Onset: The symptoms/episode began/occurred yesterday. The pain does not radiate. Associated signs and symptoms: Pertinent positives: dysuria. The problem was sustained from unknown cause. Modifying factors: The patient symptoms are alleviated by nothing, the patient symptoms are aggravated by any movement. Severity of symptoms: At their worst the symptoms were moderate, in the emergency department the symptoms are unchanged. The patient has not experienced similar symptoms in the past. The patient has been recently seen by a physician: the patient's primary care provider, yesterday, with similar presenting complaints. Pt reports right low back pain that started yesterday. Was seen by PCP yesterday and told to come to the ER to rule out kidney stone vs infection if the pain persisted. . Historical: - Allergies: 09:54 No Known Allergies; da3 - PMHx: 09:43 Kidney stone; da3 - Immunization history:: Client reports having NOT received the Covid vaccine. ROS: 12:05 Constitutional: Negative for fever, chills, and weight loss. kb 12:05 Back: Positive for pain at rest, pain with movement, of the right low back. 12:05 All other systems are negative. Exam: 12:09 Constitutional: This is a well developed, well nourished patient who is awake, alert, kb and in no acute distress. Head/Face: Normocephalic, atraumatic. ENT: Moist Mucous membranes Respiratory: Respirations even and unlabored. No increased work of breathing, no retractions or nasal flaring. Skin: Warm, dry with normal turgor. Normal color. MS/ Extremity: Pulses equal, no cyanosis. Neurovascular intact. Full, normal range of motion. Neuro: Awake and alert, GCS 15, oriented to person, place, time, and situation. Moves all extremities. Normal gait. Psych: Awake, alert, with orientation to person, place and time. Behavior, mood, and affect are within normal limits. 12:09 Back: pain, that is moderate, of the right low back, ROM is painful, with all movement, normal spinal alignment noted, CVA tenderness, is absent. 12:12 Neuro: Exam negative for acute changes. kb Vital Signs: 09:44 BP 131 / 90; Pulse 91; Resp 22; Temp 98.2; Pulse Ox 99% on R/A; da3 MDM: 09:41 Patient medically screened. kb 11:20 Data reviewed: vital signs, nurses notes. Data interpreted: Pulse oximetry: on room air kb is 99 %. Interpretation: normal. Counseling: I had a detailed discussion with the patient and/or guardian regarding: the historical points, exam findings, and any diagnostic results supporting the discharge/admit diagnosis, lab results, radiology results, the need for outpatient follow up, a family practitioner, to return to the emergency department if symptoms worsen or persist or if there are any questions or concerns that arise at home. 07/04 09:46 Order name: Urine Microscopic Only; Complete Time: 10:53 kb 07/04 10:02 Order name: Urine Dipstick-Ancillary; Complete Time: 10:04 EDNC 07/04 09:46 Order name: CT Stone Protocol; Complete Time: 10:59 kb 07/04 10:18 Order name: Urine --Ancillary (enter results); Complete Time: 10:36 bd 07/04 10:46 Order name: Urine Culture EDNC 07/04 09:46 Order name: Urine Dipstick-Ancillary (obtain specimen) kb Administered Medications: 10:04 Drug: Ketorolac 30 mg Route: IM; Site: left deltoid; da3 Disposition: 12:50 Co-signature as Attending Physician, Kenny Parker MD I agree with the assessment and rn plan of care. Attestation: The patient's history, exam findings, diagnostics, and a summary of any interventions or procedures was reviewed in detail with Ines GARCIA. Disposition Summary: 07/04/21 11:21 Discharge Ordered Location: Home kb Condition: Stable kb Diagnosis - Low back pain kb Followup: kb - With: Emergency Department - When: As needed - Reason: Worsening of condition Followup: kb - With: Lynn Grissom MD - When: 2 - 3 days - Reason: Recheck today's complaints, Continuance of care, Re-evaluation by your physician Discharge Instructions: - Discharge Summary Sheet kb - Musculoskeletal Pain kb Forms: - Medication Reconciliation Form kb - Thank You Letter kb - Antibiotic Education kb - Prescription Opioid Use kb Prescriptions: - Cyclobenzaprine 10 mg Oral Tablet - take 1 tablet by ORAL route every 8 hours As needed; 21 tablet; Refills: 0, kb Product Selection Permitted - Diclofenac Sodium 75 mg Oral tablet,delayed release (DR/EC) - take 1 tablet by ORAL route 2 times per day As needed; 30 tablet; Refills: 0, kb Product Selection Permitted Signatures: Dispatcher [employer] EDMS Ines Gordon, LARS-C LARS-Kenny Shankar MD MD rn Allan, David, RN RN da3 Corrections: (The following items were deleted from the chart) 09:44 09:43 PMHx: Crohn's; da3 da3 09:44 09:43 PMHx: Anxiety; da3 da3 09:44 09:43 PMHx: Depression; da3 da3
[2021-07-04 11:37] VITALS: BP 131/90; TEMP 98.2; O2SAT 99
== END 2021-07-04 11:27 | disposition home or self-care (01) ==
LOC: ER 09:37
DX: M54.5 Low back pain (principal); R30.0 Dysuria
CPT/HCPCS: 74176; 76377; 81003; 81015; 81025; 87086; 87088; 96372; 99283

== ENCOUNTER 2021-07-20 16:09 | Emergency (ER) | payer BC ==
--- NOTE | 2021-07-20 17:54 | RAD REPORT ---
EXAM DESCRIPTION: RAD - Chest Pa And Lat (2 Views) - 07/20/2021 5:38 pm CLINICAL HISTORY: COUGH COMPARISON: Chest Single View dated 07/16/2020; Chest Pa And Lat (2 Views) dated 01/01/2020; Chest Sing le View dated 11/22/2016; CHEST SINGLE VIEW dated 01/02/2015 FINDINGS: No evidence of edema or pneumonia. The heart size is within normal limits.No acute osseous abnormality. No significant pleural effusions or pneumothorax. IMPRESSION: No acute cardiopulmonary disease.
--- NOTE | 2021-07-20 20:11 | ER ---
Nurse's Notes [facility] Name: Daria Arboleda Age: 31 yrs Sex: Female : 1990 Arrival Date: 07/20/2021 Time: 16:12 Bed 12 Private MD: Diagnosis: SARS-associated coronavirus as the cause of diseases classified elsewhere Presentation: 07/20 16:46 Chief complaint: Patient states: COVID + 07/15/21, SOB, cough, diarrhea, generalized sv weakness, loss of smell/taste, fatigue has not improved. Coronavirus screen: Client denies travel out of the [place] in the last 14 days. Client reports previous positive COVID test result. Ebola Screen: No symptoms or risks identified at this time. Risk Assessment: Do you want to hurt yourself or someone else? Patient reports no desire to harm self or others. Onset of symptoms was July 20, 2021. 16:46 Method Of Arrival: Ambulatory sv 16:46 Acuity: AMARJIT 3 sv 16:48 Initial Sepsis Screen: Does the patient meet any 2 criteria? RR > 20 per min. HR > 90 sv bpm. No. Patient's initial sepsis screen is negative. Does the patient have a suspected source of infection? Yes: Other: covid. Triage Assessment: 16:49 General: Appears in no apparent distress. uncomfortable, Behavior is calm, cooperative, sv appropriate for age. Neuro: Level of Consciousness is awake, alert, obeys commands, Gait is steady. Respiratory: Respiratory effort is even, unlabored, Respiratory pattern is tachypnea. Historical: - Allergies: 16:48 No Known Drug Allergies; sv - PMHx: 16:48 Kidney stone; sv - Immunization history:: Client reports having NOT received the Covid vaccine. - Social history:: Smoking status: Patient denies any tobacco usage or history of. - Family history:: not pertinent. - Hospitalizations: : No recent hospitalization is reported. Screenin:56 Abuse screen: Denies threats or abuse. Denies injuries from another. Nutritional zb screening: No deficits noted. Tuberculosis screening: No symptoms or risk factors identified. Fall Risk None identified. Assessment: 19:55 General: Appears uncomfortable, Behavior is calm, cooperative, appropriate for age, zb Reports fever for feeling ill for fatigue for. Pain: Denies pain. Neuro: Level of Consciousness is awake, alert, obeys commands, Oriented to person, place, time, situation, Moves all extremities. Full function. Cardiovascular: Patient's skin is warm and dry. Respiratory: Airway is patent Respiratory effort is even, unlabored, Respiratory pattern is regular, symmetrical. GI: Reports diarrhea. Derm: Skin is intact, is healthy with good turgor, Skin is dry, Skin is normal, Skin temperature is warm. Musculoskeletal: Range of motion: intact in all extremities. 20:22 Reassessment: Patient appears in no apparent distress at this time. Patient and/or zb family updated on plan of care and expected duration. Pain level reassessed. Patient is alert, oriented x 3, equal unlabored respirations, skin warm/dry/pink. patient gait even and stable. d/c instructions provided. Vital Signs: 16:48 BP 130 / 90; Pulse 120; Resp 22; Temp 98.7; Pulse Ox 100% ; Weight 105.23 kg; Height 5 sv ft. 3 in. (160.02 cm); 19:55 BP 133 / 90; Pulse 90; Resp 20; Pulse Ox 99% on R/A; zb 16:48 Body Mass Index 41.10 (105.23 kg, 160.02 cm) sv ED Course: 16:12 Patient arrived in ED. ds1 16:46 Arm band placed on. sv 16:48 Triage completed. sv 17:37 Chest Pa And Lat (2 Views) XRAY In Process Unspecified. EDMS 19:31 Kenny Parker MD is Attending Physician. rn 19:55 Keila Benton RN is Primary Nurse. zb 19:56 Patient has correct armband on for positive identification. Bed in low position. Pulse zb ox on. NIBP on. Door closed. Noise minimized. 20:21 No provider procedures requiring assistance completed. Patient did not have IV access zb during this emergency room visit. Administered Medications: No medications were administered Outcome: 20:10 Discharge ordered by . rn 20:21 Discharged to home ambulatory. zb 20:21 Condition: stable 20:21 Discharge instructions given to patient, Instructed on discharge instructions, follow up and referral plans. Demonstrated understanding of instructions, follow-up care. 20:22 Patient left the ED. zb Signatures: Dispatcher [facility] Sandy Alanis RN RN sv Sanford, Demi ds1 Kenny Parker MD MD rn Brown, Zipporah, RN RN zb Corrections: (The following items were deleted from the chart) 16:50 16:48 BP 130 / 19; Pulse 120bpm; Resp 22bpm; Pulse Ox 100%; Temp 98.7F; 105.23 kg; sv Height 5 ft. 3 in.; BMI: 41.1; sv
--- NOTE | 2021-07-20 20:11 | EDPHYS ---
Physician Documentation [facility] Name: Daria Arboleda Age: 31 yrs Sex: Female : 1990 Arrival Date: 07/20/2021 Time: 16:12 Bed 12 Private MD: ED Physician Kenny Parker HPI: 07/20 20:06 This 31 yrs old Female presents to ER via Ambulatory with complaints of Covid rn + SOB. 20:06 The patient or guardian reports cough, described as mild, with no sputum, difficulty rn breathing. Onset: The symptoms/episode began/occurred 8 day(s) ago. Severity of symptoms: At their worst the symptoms were mild, in the emergency department the symptoms are unchanged. Modifying factors: The symptoms are alleviated by nothing, the symptoms are aggravated by nothing. Associated signs and symptoms: Pertinent positives: fever, Pertinent negatives: chest pain, sore throat, vomiting. The patient has not experienced similar symptoms in the past. The patient has not recently seen a physician. Patient reports Covid positive last week now about 8 days into illness, positive cough positive mild shortness of breath. No chronic medical problems or lung problems. Non-smoker. Not vaccinated.. Historical: - Allergies: 16:48 No Known Drug Allergies; sv - PMHx: 16:48 Kidney stone; sv - Immunization history:: Client reports having NOT received the Covid vaccine. - Social history:: Smoking status: Patient denies any tobacco usage or history of. - Family history:: not pertinent. - Hospitalizations: : No recent hospitalization is reported. ROS: 20:06 Constitutional: Positive for fever and chills Eyes: Negative for injury, pain, redness, rn and discharge, ENT: Negative for injury, pain, and discharge, Neck: Negative for injury, pain, and swelling, Cardiovascular: Negative for chest pain, palpitations, and edema, Respiratory: Positive for mild shortness of breath and cough, negative for pleuritic chest pain Abdomen/GI: Negative for abdominal pain Back: Negative for injury and pain, : Negative for injury, bleeding, discharge, and swelling, MS/Extremity: Negative for injury and deformity, Skin: Negative for injury, rash, and discoloration, Neuro: Negative for numbness, tingling, and seizure. 20:06 All other systems are negative. Exam: 20:06 Constitutional: This is a well developed, well nourished patient who is awake, alert, rn and in no acute distress. Head/Face: Normocephalic, atraumatic. Eyes: Pupils equal round and reactive to light, extra-ocular motions intact. Lids and lashes normal. Conjunctiva and sclera are non-icteric and not injected. Cornea within normal limits. Periorbital areas with no swelling, redness, or edema. ENT: No stridor Cardiovascular: Regular rate and rhythm. No pulse deficits. Respiratory: Speaking full sentences, unlabored. No increased work of breathing, no retractions or nasal flaring. Abdomen/GI: Soft, non-tender Skin: Warm, dry with normal turgor. Normal color with no rashes, no lesions, and no evidence of cellulitis. MS/ Extremity: Pulses equal, no cyanosis. Neurovascular intact. Full, normal range of motion. Equal circumference. Neuro: Awake and alert, GCS 15 Vital Signs: 16:48 BP 130 / 90; Pulse 120; Resp 22; Temp 98.7; Pulse Ox 100% ; Weight 105.23 kg; Height 5 sv ft. 3 in. (160.02 cm); 19:55 BP 133 / 90; Pulse 90; Resp 20; Pulse Ox 99% on R/A; zb 16:48 Body Mass Index 41.10 (105.23 kg, 160.02 cm) sv MDM: 19:31 Patient medically screened. rn 20:06 Differential Diagnosis: Bronchitis Upper Respiratory Infection Viral Syndrome Pneumonia rn Other Covid, Covid pneumonia. Data reviewed: vital signs, nurses notes, radiologic studies, plain films, and as a result, I will discharge patient. Data interpreted: child monitor: rate is 90 beats/min, rhythm is normal sinus rhythm, regular, with no ectopy, Interpretation: normal rate, normal rhythm, Pulse oximetry: on room air is 99 %. Interpretation: normal. Test interpretation: by ED physician or midlevel provider: plain radiologic studies, Chest x-ray negative for acute pneumonia or pneumothorax. Counseling: I had a detailed discussion with the patient and/or guardian regarding: the historical points, exam findings, and any diagnostic results supporting the discharge/admit diagnosis, radiology results, the need for outpatient follow up, to return to the emergency department if symptoms worsen or persist or if there are any questions or concerns that arise at home. Special discussion: I discussed with the patient/guardian in detail that at this point there is no indication for admission to the hospital. It is understood, however, that if the symptoms persist or worsen the patient needs to return immediately for re-evaluation. ED course: Patient without oxygen requirement, does not meet criteria for monoclonal antibodies. Will DC home with return precautions.. 07/20 16:49 Order name: Chest Pa And Lat (2 Views) XRAY; Complete Time: 19:33 sv Administered Medications: No medications were administered Disposition Summary: 07/20/21 20:10 Discharge Ordered Location: Home rn Problem: new rn Symptoms: are unchanged rn Condition: Stable rn Diagnosis - SARS-associated coronavirus as the cause of diseases classified elsewhere rn Followup: rn - With: Private Physician - When: As needed - Reason: Recheck today's complaints, Re-evaluation by your physician Discharge Instructions: - Discharge Summary Sheet rn - COVID-19 rn - 10 Things You Can Do to Manage Your COVID-19 Symptoms at Home - [facility] rn - Viral Illness, Adult rn Forms: - Medication Reconciliation Form rn - Thank You Letter rn - 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
[2021-07-20 20:30] VITALS: TEMP 98.7
[2021-07-20 20:31] VITALS: BP 133/90; O2SAT 99
== END 2021-07-20 20:22 | disposition home or self-care (01) ==
LOC: ER 16:09
DX: U07.1 COVID-19 (principal)
CPT/HCPCS: 71046; 99283

== ENCOUNTER 2022-06-18 10:37 | Emergency (ER) | payer BC ==
[2022-06-18 11:11] LABS: Urine Blood Negative (Negative); Urine Glucose Negative (Negative); Urine Protein Negative (Negative); Urine pH 5.5 (5.0-7.0)
[2022-06-18] MEDS ORDERED: MORPHINE 4 MG/ML SYR ONE (11:24)
[2022-06-18] MEDS ORDERED: ONDANSETRON 4 MG/2 ML VIAL ONE ×3 (11:24→18:37)
[2022-06-18] MEDS ORDERED: NA CHLORIDE 0.9% 1,000 ML ONE ×3 (11:24→14:27)
[2022-06-18 11:27] LABS: Absolute Lymphocytes (CBC) 1.4 K/uL (0.7-4.9); Hematocrit 42.9 % (36.0-45.0); Lymphocytes % 6.5 % (15.3-44.8); MCV 88.2 fL (80-100); MPV 8.4 fL (7.6-11.3); RBC Red Blood Cell Count 4.87 M/uL (3.86-4.86)
[2022-06-18 11:29] LABS: Urine Bacteria 20-50 /HPF (<20); Urine RBC <5 /HPF (None Seen)
[2022-06-18] MEDS ORDERED: KETOROLAC 30 MG/ML INJ ONE ×2 (11:33→12:59)
[2022-06-18 11:45] LABS: Albumin 3.4 g/dL (3.4-5.0); Bilirubin Total 1.1 mg/dL (0.2-1.0); Potassium 3.5 mmol/L (3.5-5.1); Protein, Total 7.7 g/dL (6.4-8.2)
[2022-06-18 12:14] LABS: Blood Morphology Comment NOT SEEN (NOT SEEN); Platelet Estimate ADEQ
--- NOTE | 2022-06-18 12:49 | RAD REPORT ---
EXAM DESCRIPTION: CT - Abdomen Pelvis W Contrast - 06/18/2022 12:18 pm CLINICAL HISTORY: Generalized abdominal pain post hysterectomy1 week earlier COMPARISON: Abdomen Pelvis W Contrast dated 11/22/2016 TECHNIQUE: Biphasic, helical CT imaging of the abdomen and pelvis was performed following 100 ml non -ionic IV contrast. No oral contrast administered. All CT scans are performed using dose optimization technique as appropriate and may include automated exposure control or mA/KV adjustment according to patient size. FINDINGS: No suspicious findings in the lung bases. The liver, spleen, and pancreas show no suspicious findings. Cholecystectomy clips are present. No bi liary tree dilatation. Symmetric renal function is seen with no hydronephrosis or suspicious renal mass. No pyelonephritis o r acute parenchymal process. Verma of the urinary bladder are mildly prominent likely the affects of only minimal filling. No adrenal abnormalities. No acute gastric finding. Moderate stool volume fills but does not dilate the entirety of the colon. Along the floor the pelvis along the posterosuperior margin of the bladder and position near the vag inal cuff is in a amorphous 10 x 7 centimeter fluid collection. There is a shaggy irregular enhancing rim or rind present. There is additional congestion or edema in the pelvic floor fat. The sigmoid co alfredo cysts on the superior margin of this amorphous collection in shows secondary wall thickening or e tamia. One small punctate focus of free air is seen along the lateral margin of the bladder within nor mal range for recent surgery. No additional loculated or free fluid collections seen. No abnormal lymphadenopathy or solid mass lesion. No primary ovarian process seen. No suspicious bony findings. IMPRESSION: An amorphous grossly 10 x 7 centimeter fluid collection is seen along the pelvic floor n ear the vaginal cuff and posterior margin of the bladder. The irregular shaggy enhancing rim or rind would raise suspicion for abscess rather than simple posto perative fluid or old hemorrhagic material. As currently positioned, this amorphous collection is not amenable to percutaneous drainage.
--- NOTE | 2022-06-18 13:12 | ER ---
Nurse's Notes [facility] Name: Daria Arboleda Age: 32 yrs Sex: Female : 1990 Arrival Date: 06/18/2022 Time: 10:38 Bed 14 Private MD: Diagnosis: Intrapelvic abscess Presentation: 06/18 10:44 Chief complaint: Patient states: she had a hysterectomy in [place] last week, and ap3 yesterday she reports that she started having increased abdominal pain, chills, and fever. patient states she called and reported these symptoms to her provider who instructed her to be evaluated at the ED, however the patient states she was unable to make the drive all the way back to [place] due to being uncomfortable. patient also states she took a at home COVID test this morning and it was negative. Coronavirus screen: At this time, the client does not indicate any symptoms associated with coronavirus-19. Ebola Screen: No symptoms or risks identified at this time. Initial Sepsis Screen: Does the patient meet any 2 criteria? HR > 90 bpm. Does the patient have a suspected source of infection? No. Patient's initial sepsis screen is negative. Risk Assessment: Do you want to hurt yourself or someone else? Patient reports no desire to harm self or others. Onset of symptoms was June 17, 2022. 10:44 Method Of Arrival: Ambulatory ap3 10:44 Acuity: AMARJIT 3 ap3 Triage Assessment: 10:52 General: Appears uncomfortable, Behavior is calm, cooperative. Pain: Complains of pain ap3 in abdomen Pain currently is 8 out of 10 on a pain scale. Neuro: Level of Consciousness is awake, alert, obeys commands, Oriented to person, place, time, situation, Speech is normal. Cardiovascular: Capillary refill. Respiratory: Airway is patent Respiratory effort is even, unlabored. Derm: sx wound X's 4 noted to patients abdomen and abdominal binder is in place. 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 - Social history:: Smoking status: Patient denies any tobacco usage or history of. Screenin:55 Abuse screen: Denies threats or abuse. Nutritional screening: No deficits noted. ap3 Tuberculosis screening: No symptoms or risk factors identified. 13:02 Fall Risk None identified. eh3 Assessment: 10:57 General: patient provided with urine specimen cup, and education on proper urine ap3 collection. patient verbalized understanding of education on proper urine collection.. 13:02 Reassessment: No changes from previously documented assessment. See triage assessment.. eh3 Pain: Complains of pain in abdomen Pain currently is 7 out of 10 on a pain scale. Vital Signs: 10:44 BP 117 / 93; Pulse 126; Resp 19; Temp 98.8; Pulse Ox 100% ; Weight 86.18 kg; Height 5 ap3 ft. 3 in. (160.02 cm); Pain 8/10; 12:00 BP 119 / 82; Pulse 113; Resp 20; Pulse Ox 100% on R/A; eh3 12:38 BP 128 / 77; Pulse 111; Resp 18; Pulse Ox 99% on R/A; Pain 7/10; eh3 13:05 BP 133 / 89; Pulse 114; Resp 20; Pulse Ox 100% on R/A; eh3 14:00 BP 112 / 71; Pulse 112; Resp 18; Pulse Ox 100% on R/A; eh3 15:04 BP 116 / 71; Pulse 103; Resp 18; Pulse Ox 100% ; Pain 7/10; eh3 16:00 BP 132 / 87; Pulse 102; Resp 18; Pulse Ox 100% on R/A; Pain 4/10; eh3 17:00 BP 136 / 89; Pulse 106; Resp 18; Pulse Ox 100% on R/A; Pain 5/10; eh3 18:00 BP 134 / 80; Pulse 116; Resp 18; Pulse Ox 100% on R/A; Pain 6/10; eh3 19:00 BP 118 / 64; Pulse 118; Resp 20; Pulse Ox 100% on R/A; Pain 7/10; eh3 19:30 BP 114 / 67; Pulse 123; Resp 18; Pulse Ox 100% on R/A; Pain 9/10; eh3 10:44 Body Mass Index 33.66 (86.18 kg, 160.02 cm) ap3 ED Course: 10:38 Patient arrived in ED. mr 10:52 Jono Whalen, LEONCIO is PHCP. pm1 10:52 Gurmeet Beard MD is Attending Physician. pm1 10:52 Triage completed. ap3 10:54 Arm band placed on right wrist. ap3 11:13 Maty Cody RN is Primary Nurse. jl7 11:13 Urine Microscopic Only Sent. dh3 11:20 Initial lab(s) drawn, by ar, sent to lab. Inserted saline lock: 20 gauge in right 3 antecubital area, using aseptic technique. Blood collected. 12:20 CT Abd/Pelvis - IV Contrast Only In Process Unspecified. EDMS 13:02 Patient has correct armband on for positive identification. Bed in low position. Call 3 light in reach. Side rails up X2. 13:02 No provider procedures requiring assistance completed. eh3 14:01 SARS RAPID Sent. eh3 14:09 initiated transfer to [facility], pt denied due to hospital being on transfer bd closure, per Liliane. 14:29 Urine Culture Sent. eh3 17:25 Primary Nurse role handed off by Maty Cody, IVETTE eh3 17:25 Angle Calvillo is Primary Nurse. eh3 20:31 Patient transferred, IV remains in place. eh3 Administered Medications: 11:28 Drug: NS 0.9% 1000 ml Route: IV; Rate: 1000 ml; Site: right antecubital; jl7 14:16 Follow up: IV Intake: 1000ml eh3 17:25 Follow up: IV Intake: 1000ml eh3 11:28 Not Given (Patient Refused): morphine 4 mg IVP once over 4 mins jl7 11:28 Not Given (Patient Refused): Zofran (Ondansetron) 4 mg IVP once; over 2 minutes jl7 12:58 Drug: Ketorolac 30 mg Route: IVP; Site: right antecubital; 3 14:16 Follow up: Response: No adverse reaction; Marked relief of symptoms eh3 13:03 Drug: NS 0.9% 1000 ml Route: IV; Rate: 1000 ml; Site: right antecubital; 3 14:25 Follow up: IV Intake: 1000ml 3 13:21 Drug: Zofran (Ondansetron) 4 mg Route: IVP; Site: right antecubital; eh3 14:15 Follow up: Response: No adverse reaction eh3 13:30 Drug: Zosyn (piperacillin-tazobactam) 3.375 grams Route: IVPB; Infused Over: 60 mins; eh3 Site: right antecubital; 14:15 Follow up: Response: No adverse reaction eh3 17:26 Follow up: IV Intake: 100ml eh3 14:25 Drug: NS 0.9% 1000 ml Route: IV; Rate: 100 ml/hr; Site: right antecubital; eh3 15:24 Follow up: IV Intake: 1000ml eh3 17:22 Follow up: IV Intake: 1000ml eh3 19:40 Follow up: Response: No adverse reaction; IV Intake: 1000ml eh3 14:48 Drug: fentaNYL (PF) 25 mcg Route: IVP; Site: right antecubital; eh3 15:15 Follow up: Response: No adverse reaction; No change in condition eh3 15:23 Drug: fentaNYL (PF) 25 mcg Route: IVP; Site: right antecubital; eh3 16:55 Follow up: Response: No adverse reaction; Marked relief of symptoms eh3 18:22 Drug: fentaNYL (PF) 25 mcg Route: IVP; Site: right antecubital; eh3 19:38 Follow up: Response: No adverse reaction; Pain is unchanged, physician notified eh3 18:34 Drug: Zofran (Ondansetron) 4 mg Route: IVP; Site: right antecubital; eh3 19:38 Follow up: Response: No adverse reaction eh3 19:29 Drug: Dilaudid (HYDROmorphone) 1 mg Route: IVP; Site: right antecubital; eh3 19:39 Follow up: Response: No adverse reaction; Marked relief of symptoms eh3 Medication: 13:02 VIS not applicable for this client. eh3 Intake: 14:16 IV: 1000ml; Total: 1000ml. eh3 14:25 IV: 1000ml; Total: 2000ml. eh3 15:24 IV: 1000ml; Total: 3000ml. eh3 17:22 IV: 1000ml; Total: 4000ml. eh3 17:25 IV: 1000ml; Total: 5000ml. eh3 17:26 IV: 100ml; Total: 5100ml. eh3 19:40 IV: 1000ml; Total: 6100ml. eh3 Outcome: 13:12 ER care complete, transfer ordered by MD. pm1 20:29 Transferred by ground EMS Note: [facility] eh3 20:29 Condition: stable 20:29 Discharge instructions given to patient, Instructed on the need for transfer, Demonstrated understanding of instructions. 20:31 Patient left the ED. eh3 Signatures: Dispatcher [employer] EDMS Alexandra Mccain Hurt, Rosa Elena mr Marlee, Jono, SURGICAL SCRUB TECH SURGICAL SCRUB TECH pm1 Maty Cody, RN RN jl7 Francine Cabrales 3 Hanane Vega RN RN ap3 Angle Calvillo eh3 Corrections: (The following items were deleted from the chart) 14:02 14:00 Zosyn (piperacillin-tazobactam) 3.375 grams IVPB in right antecubital over 60 eh3 mins eh3 19:09 19:06 BP 134 / 80; Pulse 116bpm; Resp 18bpm; Pulse Ox 100% RA; Pain 6/10; eh3 eh3
--- NOTE | 2022-06-18 13:13 | EDPHYS ---
Physician Documentation [facility] Name: Daria Arboleda Age: 32 yrs Sex: Female : 1990 Arrival Date: 06/18/2022 Time: 10:38 Bed 14 Private MD: JUVE Physician Gurmeet Beard HPI: 06/18 10:56 This 32 yrs old Female presents to ER via Ambulatory with complaints of Post Surgical pm1 Pain. 10:56 The patient presents with abdominal pain that is diffuse. pm1 10:56 Onset: The symptoms/episode began/occurred yesterday. The symptoms do not radiate. pm1 Associated signs and symptoms: Pertinent positives: fever, nausea, Pertinent negatives: chest pain, dysuria, shortness of breath. The symptoms are described as achy. Modifying factors: The symptoms are alleviated by nothing, the symptoms are aggravated by nothing. Severity of pain: in the emergency department the pain is actually worse. The patient has not experienced similar symptoms in the past. The patient has been recently seen by a physician: Patient with hysterectomy with Dr. Brewer at [place]. Patient with hysterectomy due to prolapse. Patient contacted Dr. Brewer this morning and was instructed to follow-up at the ER for evaluation. Patient reports unable to make the drive to [place] due to the pain. 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 - Social history:: Smoking status: Patient denies any tobacco usage or history of. ROS: 11:03 ENT: Negative for injury, pain, and discharge, Cardiovascular: Negative for chest pain, pm1 palpitations, and edema, Respiratory: Negative for shortness of breath, cough, wheezing, and pleuritic chest pain. 11:03 Back: Negative for injury and pain, : Negative for injury, bleeding, discharge, and swelling, MS/Extremity: Negative for injury and deformity, Skin: Negative for injury, rash, and discoloration, Neuro: Negative for headache, weakness, numbness, tingling, and seizure. 11:03 Constitutional: Positive for fever, poor PO intake. 11:03 Abdomen/GI: Positive for abdominal pain, nausea, of the suprapubic area, Negative for vomiting, diarrhea, constipation. 11:03 All other systems are negative. Exam: 11:03 Constitutional: This is a well developed, well nourished patient who is awake, alert, pm1 and in no acute distress. Head/Face: Normocephalic, atraumatic. 11:03 Back: No spinal tenderness. No costovertebral tenderness. Full range of motion. Skin: Warm, dry with normal turgor. Normal color with no rashes, no lesions, and no evidence of cellulitis. MS/ Extremity: Pulses equal, no cyanosis. Neurovascular intact. Full, normal range of motion. 11:03 Eyes: Exam is negative for acute changes, Periorbital structures: no acute changes, Pupils: no acute changes, Extraocular movements: no acute changes, Conjunctiva: no acute changes, no injection, Sclera: no acute changes. 11:03 ENT: Exam is negative for acute changes, Mouth: no acute changes, Lips: normal, moist, Oral mucosa: normal, pink and intact, moist. 11:03 Cardiovascular: Rate: tachycardic, Rhythm: regular, Pulses: no pulse deficits are appreciated. 11:03 Respiratory: Exam negative for acute changes, respiratory distress, shortness of breath. 11:03 Abdomen/GI: Inspection: abdomen appears normal, Palpation: soft, in all quadrants, moderate abdominal tenderness, in the suprapubic area. 11:03 Neuro: Exam negative for acute changes, Orientation: is normal, Mentation: is normal, Motor: is normal, moves all fours. Vital Signs: 10:44 BP 117 / 93; Pulse 126; Resp 19; Temp 98.8; Pulse Ox 100% ; Weight 86.18 kg; Height 5 ap3 ft. 3 in. (160.02 cm); Pain 8/10; 12:00 BP 119 / 82; Pulse 113; Resp 20; Pulse Ox 100% on R/A; eh3 12:38 BP 128 / 77; Pulse 111; Resp 18; Pulse Ox 99% on R/A; Pain 7/10; eh3 13:05 BP 133 / 89; Pulse 114; Resp 20; Pulse Ox 100% on R/A; eh3 14:00 BP 112 / 71; Pulse 112; Resp 18; Pulse Ox 100% on R/A; eh3 15:04 BP 116 / 71; Pulse 103; Resp 18; Pulse Ox 100% ; Pain 7/10; eh3 16:00 BP 132 / 87; Pulse 102; Resp 18; Pulse Ox 100% on R/A; Pain 4/10; eh3 17:00 BP 136 / 89; Pulse 106; Resp 18; Pulse Ox 100% on R/A; Pain 5/10; eh3 18:00 BP 134 / 80; Pulse 116; Resp 18; Pulse Ox 100% on R/A; Pain 6/10; eh3 19:00 BP 118 / 64; Pulse 118; Resp 20; Pulse Ox 100% on R/A; Pain 7/10; eh3 19:30 BP 114 / 67; Pulse 123; Resp 18; Pulse Ox 100% on R/A; Pain 9/10; eh3 10:44 Body Mass Index 33.66 (86.18 kg, 160.02 cm) ap3 MDM: 10:54 Patient medically screened. pm1 12:57 Data reviewed: vital signs. Data interpreted: Pulse oximetry: on room air is 99 %. pm1 Interpretation: normal. 13:04 Counseling: I had a detailed discussion with the patient and/or guardian regarding: the pm1 historical points, exam findings, and any diagnostic results supporting the discharge/admit diagnosis, lab results, radiology results, the need to transfer to another facility, continuity of care with her instrumentation engineer, Dr Brewer. Patient had surgery at [facility]. 13:37 Physician consultation: Dyan Brewer was called at 13:37, was contacted at 13:37, pm1 regarding regarding transfer, patient's condition, and will see patient Will accept the patient, requests transfer to [facility]. 06/18 10:53 Order name: CBC with Diff; Complete Time: 12:18 pm1 06/18 10:53 Order name: CMP; Complete Time: 11:56 pm1 06/18 10:53 Order name: Lipase; Complete Time: 11:56 pm1 06/18 10:53 Order name: Urine Microscopic Only; Complete Time: 11:56 pm1 06/18 11:11 Order name: Urine Dipstick-Ancillary; Complete Time: 11:56 EDMS 07/25 11:33 Order name: Urine Culture [facility] 06/18 10:53 Order name: CT Abd/Pelvis - IV Contrast Only; Complete Time: 12:56 pm06/18 12:14 Order name: Manual Differential; Complete Time: 12:18 EDLA 06/18 13:15 Order name: SARS RAPID; Complete Time: 15:21 pm06/18 10:53 Order name: IV Saline Lock; Complete Time: 11:22 pm06/18 10:53 Order name: Labs collected and sent; Complete Time: 11:22 pm06/18 10:53 Order name: Urine Dipstick-Ancillary (obtain specimen); Complete Time: 11:13 pm06/18 13:12 Order name: NPO; Complete Time: 13:21 pm1 Administered Medications: 11:28 Drug: NS 0.9% 1000 ml Route: IV; Rate: 1000 ml; Site: right antecubital; jl7 14:16 Follow up: IV Intake: 1000ml eh3 17:25 Follow up: IV Intake: 1000ml eh3 11:28 Not Given (Patient Refused): morphine 4 mg IVP once over 4 mins jl7 11:28 Not Given (Patient Refused): Zofran (Ondansetron) 4 mg IVP once; over 2 minutes jl7 12:58 Drug: Ketorolac 30 mg Route: IVP; Site: right antecubital; eh3 14:16 Follow up: Response: No adverse reaction; Marked relief of symptoms eh3 13:03 Drug: NS 0.9% 1000 ml Route: IV; Rate: 1000 ml; Site: right antecubital; eh3 14:25 Follow up: IV Intake: 1000ml eh3 13:21 Drug: Zofran (Ondansetron) 4 mg Route: IVP; Site: right antecubital; eh3 14:15 Follow up: Response: No adverse reaction eh3 13:30 Drug: Zosyn (piperacillin-tazobactam) 3.375 grams Route: IVPB; Infused Over: 60 mins; eh3 Site: right antecubital; 14:15 Follow up: Response: No adverse reaction eh3 17:26 Follow up: IV Intake: 100ml eh3 14:25 Drug: NS 0.9% 1000 ml Route: IV; Rate: 100 ml/hr; Site: right antecubital; eh3 15:24 Follow up: IV Intake: 1000ml eh3 17:22 Follow up: IV Intake: 1000ml eh3 19:40 Follow up: Response: No adverse reaction; IV Intake: 1000ml eh3 14:48 Drug: fentaNYL (PF) 25 mcg Route: IVP; Site: right antecubital; eh3 15:15 Follow up: Response: No adverse reaction; No change in condition eh3 15:23 Drug: fentaNYL (PF) 25 mcg Route: IVP; Site: right antecubital; eh3 16:55 Follow up: Response: No adverse reaction; Marked relief of symptoms eh3 18:22 Drug: fentaNYL (PF) 25 mcg Route: IVP; Site: right antecubital; eh3 19:38 Follow up: Response: No adverse reaction; Pain is unchanged, physician notified eh3 18:34 Drug: Zofran (Ondansetron) 4 mg Route: IVP; Site: right antecubital; eh3 19:38 Follow up: Response: No adverse reaction eh3 19:29 Drug: Dilaudid (HYDROmorphone) 1 mg Route: IVP; Site: right antecubital; eh3 19:39 Follow up: Response: No adverse reaction; Marked relief of symptoms eh3 Disposition Summary: 06/18/22 13:12 Transfer Ordered Transfer Location: Other Acute Care Facility pm1 Reason: Higher level of care pm1 Condition: Stable pm1 Problem: new pm1 Symptoms: have improved pm1 Accepting Physician: Dr. Brewer(06/18/22 20:31) eh3 Diagnosis - Intrapelvic abscess pm1 Forms: - Medication Reconciliation Form pm1 - SBAR form pm1 Signatures: Dispatcher [employer] EDMS Jono Whalen, LEONCIO SENIOR PARALEGAL pm1 Maty Cody RN RN jl7 Hanane Vega RN RN ap3 Angle Calvillo eh3 Corrections: (The following items were deleted from the chart) 20:31 13:12 Dr. Brewer pm1 eh3
[2022-06-18] MEDS ORDERED: PIPERACIL/TAZO 3.375 GM VIAL IV ONE (13:21)
[2022-06-18] MEDS ORDERED: NA CHLORIDE 0.9% 100 ML ONE (13:22)
[2022-06-18 14:15] LABS: SARS-CoV-2 Antigen Rapid Res Negative (Negative)
[2022-06-18] MEDS ORDERED: FENTANYL CITR 100 MCG/2 ML ONE ×3 (14:48→18:21)
[2022-06-18] MEDS ORDERED: HYDROMORPHONE HCL 1 MG/ML INJ ONE (19:26)
[2022-06-18 20:49] VITALS: TEMP 98.8
[2022-06-18 21:01] VITALS: O2SAT 100
[2022-06-18 21:16] VITALS: BP 114/67
== END 2022-06-18 20:31 ==
LOC: ER 10:37
DX: K65.1 Peritoneal abscess (principal); Z90.710 Acquired absence of both cervix and uterus; Z20.822 Contact with and (suspected) exposure to COVID-19; F41.9 Anxiety disorder, unspecified; Z87.442 Personal history of urinary calculi
CPT/HCPCS: 87088; 85025; 87086; 36415; 83690; 80053; 74177; 87811; Q9967; J2543; J3010 ×3; J1170; J7030 ×3; J2405 ×2; 81003; 81015; 96374; 96375; 99285

== ENCOUNTER 2024-03-04 08:37 | Emergency (ER) | payer OTHER, BC ==
[2024-03-04] MEDS ORDERED: ACETAMINOPHEN 500 MG TAB ONE (09:06)
[2024-03-04] MEDS ORDERED: KETOROLAC 30 MG/ML INJ ONE (09:06)
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
[2024-03-04 11:55] VITALS: BP 136/81; O2SAT 100
== END 2024-03-04 09:50 | disposition home or self-care (01) ==
LOC: ER 08:37
DX: R51.9 Headache, unspecified (principal); V49.40XA Driver injured in collision with unspecified motor vehicles in traffic accident, initial encounter
CPT/HCPCS: 70450; 72125

== ENCOUNTER 2024-03-05 17:38 | Emergency (ER) | payer BC ==
[2024-03-05 18:26] LABS: Absolute Basophils 0.1 K/uL (0-0.5); Absolute Eosinophils 0.1 K/uL (0-0.5); Absolute Lymphocytes (CBC) 2.1 K/uL (0.7-4.9); Absolute Monocytes 0.8 K/uL (0.1-1.3); Absolute Neutrophil 3.6 K/uL (1.8-8.0); Basophils % 0.8 % (0-1.3); Eosinophils % 1.8 % (0-4.4); Lymphocytes % 31.8 % (15.3-44.8); MCH 30.1 pg (27.0-35.0); MCHC 33.4 g/dL (32.0-36.0); MPV 8.8 fL (7.6-11.3); Monocytes % 11.2 % (3.3-12.3); Neutrophils % 54.4 % (41.7-73.7); Platelets 303 thou/uL (152-406); RBC Red Blood Cell Count 4.34 M/uL (3.86-4.86); Red Cell Distribution Width 13.8 % (12.1-15.2)
[2024-03-05 18:30] LABS: Specific Gravity 1.025 (1.005-1.030); Urine Bilirubin NEGATIVE (Negative); Urine Blood Negative (Negative); Urine Clarity Clear (Clear); Urine Color Light-Yellow (Yellow); Urine Glucose NEGATIVE (Negative); Urine Ketones NEGATIVE (Negative); Urine Microscopic Reflex YN NO UMIC; Urine Nitrite NEGATIVE (Negative); Urine Protein NEGATIVE (Negative); Urine Urobilinogen Normal (Normal)
[2024-03-05 18:36] LABS: Specific Gravity 1.025 (1.005-1.030)
[2024-03-05 18:39] LABS: Albumin 3.9 g/dL (3.4-5.0); Albumin/Globulin Ratio 1.1 (1.1-1.8); Anion Gap 8.9 mEq/L (5.0-15.0); Bilirubin Total 0.3 mg/dL (0.2-1.0); Globulin 3.7 g/dL (2.3-3.5); Potassium 3.9 mEq/L (3.5-5.1); Protein, Total 7.6 g/dL (6.4-8.2)
[2024-03-05] MEDS ORDERED: NA CHLORIDE 0.9% 1,000 ML ONE (19:41)
[2024-03-05] MEDS ORDERED: MORPHINE 4 MG/ML SYR ONE (19:41)
[2024-03-05] MEDS ORDERED: KETOROLAC 30 MG/ML INJ ONE (19:41)
--- NOTE | 2024-03-05 19:41 | RAD REPORT ---
EXAM DESCRIPTION: CTAbdomen Pelvis W Contrast - 03/05/2024 7:24 pm CLINICAL HISTORY: ABD PAIN COMPARISON: Abdomen Pelvis W Contrast dated 06/18/2022; Abdomen Pelvis W Contrast dated 6; Abdomen Pelvis W Contrast dated 10/10/2016; Abdomen Pelvis W Contrast dated 09/11/2016 TECHNIQUE: CT of the abdomen and pelvis was performed. All CT scans are performed using dose optimization technique as appropriate and may include automated exposure control or mA/KV adjustment according to patient size. FINDINGS: Lower chest: No acute abnormality. Liver: Hepatic steatosis Biliary: Cholecystectomy. Stomach: No significant focal abnormality. Duodenum: No significant focal abnormality. Pancreas: No significant abnormality. Spleen: No significant abnormality. Adrenal: No suspicious lesions. Kidney/ureter: No hydronephrosis. No renal calculi. Retroperitoneum: No retroperitoneal adenopathy. Vascular: No aneurysm. Bowel: No significant focal abnormality. Appendectomy. Peritoneum: Trace free fluid in the pelvis. Small fat containing umbilical hernia . Bladder: Grossly unremarkable. Reproductive: Hysterectomy. Probable corpus luteal cyst in the left ovary. Bones: No acute fracture. Pars defects at L5. Other: n/a IMPRESSION: No acute intra-abdominal or pelvic finding.
[2024-03-05] MEDS ORDERED: ONDANSETRON 4 MG/2 ML VIAL ONE (19:50)
[2024-03-05] MEDS ORDERED: LIDOCAINE 4% PATCH ONE (20:33)
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
[2024-03-05] MEDS ORDERED: HYDROCODONE/APAP 5/325 MG TAB ONE (21:04)
[2024-03-06 02:43] VITALS: TEMP 97.2; O2SAT 100
[2024-03-06 03:19] VITALS: BP 135/91
== END 2024-03-05 21:17 | disposition home or self-care (01) ==
LOC: ER 17:38
DX: S30.1XXA Contusion of abdominal wall, initial encounter (principal); Z87.442 Personal history of urinary calculi
CPT/HCPCS: 96361; 85025; 36415; 81025; 81003; 83690; 80053; 74177; 96375; 96374; 99284; Q9967; J2001; J2405; J7030

== ENCOUNTER 2024-04-02 14:27 | Emergency (ER) | payer BC ==
[2024-04-02] MEDS ORDERED: LORAZEPAM 1 MG TABLET ONE (15:00)
--- NOTE | 2024-04-02 15:58 | EDPHYS ---
Physician Documentation [facility] Name: Daria Arboleda Age: 33 yrs Sex: Female : 1990 Arrival Date: 04/02/2024 Time: 14:27 Bed 9 Private MD: ED Physician Larry Bales HPI: 04/02 14:54 This 33 yrs old Female presents to ER via Unassigned with complaints of Anxiety. ms3 14:54 33-year-old female with past medical history of anxiety and depression [place] [facility] [place] for anxiety that is been ongoing for 3 days. Patient states she saw Dr. Saini 2 days ago and was told to go to the emergency department if she continued to have anxiety. Patient denies pain at this time. She denies any alleviating or inciting factors. She does note she came close to her divorce 2 months ago.. 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 - Infectious Disease History:: Denies. - Social history:: Smoking status: Reported history of juuling and/or vaping. ROS: 14:54 Constitutional: Negative for fever, and chills. Neck: Negative for injury, pain, and ms3 swelling, Cardiovascular: Negative for chest pain, and palpitations. Respiratory: Negative for shortness of breath, cough, wheezing, and pleuritic chest pain, Abdomen/GI: Negative for abdominal pain, nausea, vomiting, diarrhea, and constipation, MS/Extremity: Negative for injury and deformity, Skin: Negative for injury, rash, and discoloration, 14:54 Psych: Positive for anxiety, Exam: 14:54 Constitutional: This is a well developed, well nourished patient who is awake, alert, ms3 and in no acute distress. Head/Face: Normocephalic, atraumatic. Chest/axilla: Normal chest wall appearance and motion. Nontender with no deformity. Cardiovascular: Regular rate and rhythm with a normal S1 and S2. No gallops, murmurs, or rubs. Normal PMI, no JVD. No pulse deficits. Respiratory: Lungs have equal breath sounds bilaterally, clear to auscultation and percussion. No rales, rhonchi or wheezes noted. No increased work of breathing, no retractions or nasal flaring. Abdomen/GI: Soft, non-tender, with normal bowel sounds. No distension or tympany. No guarding or rebound. No evidence of tenderness throughout. Skin: Warm, dry with normal turgor. Normal color with no rashes, no lesions, and no evidence of cellulitis. MS/ Extremity: Pulses equal, no cyanosis. Neurovascular intact. Full, normal range of motion. 14:54 Psych: Behavior/mood is anxious, Affect is Tearful. Oriented to person, place, time, Patient has no thoughts/intents to harm self or others. Judgement / Insight is normal. Memory is normal. Delusions/hallucinations are not present. Vital Signs: 15:03 BP 154 / 95; Pulse 93; Resp 18; Temp 97.5; Pulse Ox 99% on R/A; ph 16:12 BP 144 / 94; Pulse 97; Resp 16; Pulse Ox 100% ; me1 MDM: 14:49 Patient medically screened. ms3 14:54 Differential diagnosis: depression, Anxiety. ms3 15:58 Data reviewed: vital signs, nurses notes, and as a result, I will discharge patient. I ms3 considered the following discharge prescriptions or medication management in the emergency department Medications were administered in the Emergency Department. See MAR. Counseling: I had a detailed discussion with the patient and/or guardian regarding the historical points, exam findings, and any diagnostic results supporting the discharge/admit diagnosis, the need for outpatient follow up, to return to the emergency department if symptoms worsen or persist or if there are any questions or concerns that arise at home. Special discussion: I discussed with the patient/guardian in detail that at this point there is no indication for admission to the hospital. It is understood, however, that if the symptoms persist or worsen the patient needs to return immediately for re-evaluation. ED course: On reevaluation patient is no longer tearful, patient is alert and oriented x 4, no apparent distress, nontoxic-appearing, ambulatory emerged department, speaking full sentences. Patient to follow-up with psychiatry as soon as possible. All questions were answered. Return precautions discussed include worsening symptoms, or any other concerns. Administered Medications: 15:02 Drug: LORazepam PO 1 mg PO once Route: PO; ph 16:02 Follow up: Response: No adverse reaction; Anxiety decreased me1 Disposition Summary: 04/02/24 15:57 Discharge Ordered Notes: Location: Home ms3 Condition: Stable ms3 Diagnosis - Anxiety disorder, unspecified ms3 Followup: ms3 - With: Private Physician - When: 1 - 2 days - Reason: Recheck today's complaints Discharge Instructions: - Discharge Summary Sheet ms3 - Managing Anxiety, Adult ms3 Forms: - Medication Reconciliation Form ms3 - Antibiotic Education ms3 - Prescription Opioid Use ms3 - Patient Portal Instructions ms3 - Leadership Thank You Letter ms3 Signatures: Christine Calvillo RN RN ph Larry Bales DO DO ms3 Vicki Shaikh RN me1
--- NOTE | 2024-04-02 15:58 | ER ---
Nurse's Notes [facility] Name: Daria Arboleda Age: 33 yrs Sex: Female : 1990 Arrival Date: 04/02/2024 Time: 14:27 Bed 9 Private MD: Diagnosis: Anxiety disorder, unspecified Presentation: 04/02 14:56 Chief complaint: Patient states: Hx of anxiety, increased anxiety x 1week, has not been ph able to get meds refilled in a timely manner. reports tingling to hands and face. Coronavirus screen: Vaccine status: Patient reports receiving the 2nd dose of the covid vaccine. Ebola Screen: No symptoms or risks identified at this time. Initial Sepsis Screen: Does the patient meet any 2 criteria? No. Patient's initial sepsis screen is negative. Does the patient have a suspected source of infection? No. Patient's initial sepsis screen is negative. Risk Assessment: Do you want to hurt yourself or someone else? Patient reports no desire to harm self or others. Onset of symptoms was April 02, 2024. 14:56 Method Of Arrival: Ambulatory ph 14:56 Acuity: AMARJIT 4 ph Triage Assessment: 16:00 General: Appears in no apparent distress. Behavior is cooperative, anxious. Pain: ph Denies pain. Neuro: Level of Consciousness is awake, alert, obeys commands, Oriented to person, place, time, situation. 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 - Infectious Disease History:: Denies. - Social history:: Smoking status: Reported history of juuling and/or vaping. Screenin:03 [facility] ED Fall Risk Assessment (Adult) History of falling in the last 3 months, me1 including since admission No falls in past 3 months (0 pts) Confusion or Disorientation No (0 pts) Intoxicated or Sedated No (0 pts) Impaired Gait No (0 pts) Mobility Assist Device Used No (0 pt) Altered Elimination No (0 pt) Score/Fall Risk Level 0 - 2 = Low Risk Maintained a safe environment, Provided non-skid footwear, Hourly rounding (assess needs \T\ fall precautionary measures) done. Abuse screen: Denies threats or abuse. Nutritional screening: No deficits noted. Tuberculosis screening: No symptoms or risk factors identified. Assessment: 16:03 General: Appears comfortable, well groomed, well developed, well nourished, Behavior is me1 cooperative, appropriate for age, anxious, Reports Hx of anxiety, increased anxiety x 1week, has not been able to get meds refilled in a timely manner. reports tingling to hands and face. Pain: Denies pain. Neuro: Level of Consciousness is awake, alert, obeys commands, Oriented to person, place, time, situation, Appropriate for age. Cardiovascular: Capillary refill < 3 seconds Patient's skin is warm and dry. Respiratory: Airway is patent Respiratory effort is even, unlabored, Respiratory pattern is regular, symmetrical. GI: No signs and/or symptoms were reported involving the gastrointestinal system. : No signs and/or symptoms were reported regarding the genitourinary system. EENT: No signs and/or symptoms were reported regarding the EENT system. Derm: Skin is intact, is healthy with good turgor, Skin is pink, warm \T\ dry. Musculoskeletal: No signs and/or symptoms reported regarding the musculoskeletal system. Vital Signs: 15:03 BP 154 / 95; Pulse 93; Resp 18; Temp 97.5; Pulse Ox 99% on R/A; ph 16:12 BP 144 / 94; Pulse 97; Resp 16; Pulse Ox 100% ; me1 ED Course: 14:30 Patient arrived in ED. ts1 14:35 Larry Bales DO is Attending Physician. ms3 14:58 Triage completed. ph 14:58 Arm band placed on Patient placed in an exam room. ph 16:02 Vicki Shaikh, IVETTE is Primary Nurse. me1 16:03 Patient has correct armband on for positive identification. Bed in low position. Call me1 light in reach. Side rails up X 1. Provided Education on: POC. Verbalized understanding. . Client placed on continuous cardiac and pulse oximetry monitoring. NIBP monitoring applied. Pulse ox on. NIBP on. 16:03 No provider procedures requiring assistance completed. Patient did not have IV access me during this emergency room visit. Administered Medications: 15:02 Drug: LORazepam PO 1 mg PO once Route: PO; ph 16:02 Follow up: Response: No adverse reaction; Anxiety decreased me1 Medication: 16:03 VIS not applicable for this client. me1 Outcome: 15:57 Discharge ordered by . ms3 16:12 Discharged to home ambulatory, me1 16:12 Condition: stable 16:12 Discharge instructions given to patient, Instructed on discharge instructions, follow up and referral plans. Demonstrated understanding of instructions, follow-up care, 16:13 Patient left the ED. me1 Signatures: Christine Calvillo, RN RN Larry Bales DO DO ms3 Sharonda Huizar, PAS PAS ts1 Vicki Shaikh RN RN me1 Corrections: (The following items were deleted from the chart) 16:03 14:56 Chief complaint: Patient states: Hx of anxiety, increased anxiety x 1week, has me1 not been able to get meds refilled in a timely manner. reports tingling to hands and face. ph
[2024-04-02 17:16] VITALS: BP 144/94; TEMP 97.5; O2SAT 100
== END 2024-04-02 16:13 | disposition home or self-care (01) ==
LOC: ER 14:27
DX: F41.9 Anxiety disorder, unspecified (principal)
CPT/HCPCS: 99283

== ENCOUNTER 2024-04-07 17:46 | Emergency (ER) | payer BC ==
[2024-04-07] MEDS ORDERED: LORAZEPAM 1 MG TABLET ONE (18:16)
--- NOTE | 2024-04-07 18:30 | ER ---
Nurse's Notes [facility] Name: Daria Arboleda Age: 33 yrs Sex: Female : 1990 Arrival Date: 04/07/2024 Time: 17:46 Bed 11 Private MD: Diagnosis: Anxiety disorder, unspecified Presentation: 04/07 17:54 Chief complaint: Patient states: was here last week for anxiety attack, has not been iw able to get a hold of her psychiatrist and she was put on a new med and told her to increase her clonazepam , she ran out of the clonazepam. Coronavirus screen: At this time, the client does not indicate any symptoms associated with coronavirus-19. Ebola Screen: Patient negative for fever greater than or equal to 101.5 degrees Fahrenheit, and additional compatible Ebola Virus Disease symptoms Patient denies exposure to infectious person. Patient denies travel to an Ebola-affected area in the 21 days before illness onset. No symptoms or risks identified at this time. Initial Sepsis Screen: Does the patient meet any 2 criteria? No. Patient's initial sepsis screen is negative. Does the patient have a suspected source of infection? No. Patient's initial sepsis screen is negative. Risk Assessment: Do you want to hurt yourself or someone else? Patient reports no desire to harm self or others. Onset of symptoms was April 07, 2024. 17:54 Method Of Arrival: Ambulatory 17:54 Acuity: AMARJIT 3 iw Historical: - Allergies: 17:57 No Known Allergies; iw - PMHx: 17:56 Anxiety; Kidney stone; iw - PSHx: 17:56 Appendectomy; Cholecystectomy; partial hysterectomy; iw - Immunization history:: Adult Immunizations up to date. - Infectious Disease History:: Denies. - Social history:: Smoking status: Reported history of juuling and/or vaping. Screenin:27 [facility] ED Fall Risk Assessment (Adult) History of falling in the last 3 months, ko1 including since admission No falls in past 3 months (0 pts) Confusion or Disorientation No (0 pts) Intoxicated or Sedated No (0 pts) Impaired Gait No (0 pts) Mobility Assist Device Used No (0 pt) Altered Elimination No (0 pt) Score/Fall Risk Level 0 - 2 = Low Risk Oriented to surroundings, Maintained a safe environment, Educated pt \T\ family on fall prevention, incl call for assistance when getting out of bed, Assessed \T\ reinforced patient's understanding of fall precautions, Provided non-skid footwear, Hourly rounding (assess needs \T\ fall precautionary measures) done, Used ambulatory aids as needed (educated on \T\ assisted with), Used gait belt as appropriate. Abuse screen: Denies threats or abuse. Denies injuries from another. Nutritional screening: No deficits noted. Tuberculosis screening: No symptoms or risk factors identified. Assessment: 18:27 General: Appears distressed, Behavior is crying. Pain: Denies pain. Neuro: No deficits ko1 noted. Cardiovascular: No deficits noted. Respiratory: No deficits noted. GI: No deficits noted. : No deficits noted. EENT: No deficits noted. Derm: No deficits noted. Musculoskeletal: No deficits noted. Vital Signs: 17:54 BP 151 / 93; Pulse 103; Resp 16; Temp 98.1(O); Pulse Ox 100% on R/A; iw 18:43 BP 148 / 90; Pulse 92; Resp 18; Pulse Ox 99% ; ko1 ED Course: 17:50 Patient arrived in ED. mg5 17:56 Triage completed. iw 17:57 Arm band placed on. iw 17:58 [facility]C [facility] kb 17:58 Gurmeet Beard MD is Attending Physician. kb 18:02 Ayde Moya, IVETTE is Primary Nurse. ko1 18:27 Patient has correct armband on for positive identification. Bed in low position. Call ko1 light in reach. Provided Education on: call light. Pulse ox on. NIBP on. Door closed. Noise minimized. Lights dimmed. Verbal reassurance given. 18:27 No provider procedures requiring assistance completed. Patient did not have IV access ko1 during this emergency room visit. Administered Medications: 18:18 Drug: LORazepam PO 1 mg PO once Route: PO; ko1 18:42 Follow up: Response: No adverse reaction ko1 Medication: 18:27 VIS not applicable for this client. ko1 Outcome: 18:30 Discharge ordered by . kb 18:43 Discharged to home ambulatory, ko1 18:43 Condition: stable 18:43 Discharge instructions given to patient, Instructed on discharge instructions, follow up and referral plans. Demonstrated understanding of instructions, follow-up care, 18:47 Patient left the ED. ko1 Signatures: Ines Gordon, JOSE SOUSA-Luz Cody RN RN iw Ayde Moya RN RN ko1 Marcia Carlson mg5 Corrections: (The following items were deleted from the chart) 17:56 17:54 BP 151 / 93; Pulse 103bpm; Resp 16bpm; Pulse Ox 100% RA; Temp 89.1F; iw iw
--- NOTE | 2024-04-07 18:30 | EDPHYS ---
Physician Documentation [facility] Name: Daria Arboleda Age: 33 yrs Sex: Female : 1990 Arrival Date: 04/07/2024 Time: 17:46 Bed 11 Private MD: ED Physician Gurmeet Beard HPI: 04/07 18:26 This 33 yrs old Female presents to ER via Ambulatory with complaints of Anxiety. kb 18:26 Pt is a 33 year old female who presents for anxiety. States she has a history of kb anxiety and has been having difficulty getting in touch with her psychiatrist to get a refill for klonozapam. States her PCP is Dr Saini and he gave her a prescription for some, but she is now out and her anxiety has been bad. Denies suicidal or homicidal ideations. States she has an appt with a new psych at [facility] in May. . Historical: - Allergies: 17:57 No Known Allergies; iw - PMHx: 17:56 Anxiety; Kidney stone; iw - PSHx: 17:56 Appendectomy; Cholecystectomy; partial hysterectomy; iw - Immunization history:: Adult Immunizations up to date. - Infectious Disease History:: Denies. - Social history:: Smoking status: Reported history of juuling and/or vaping. ROS: 18:29 Constitutional: As per HPI kb Exam: 18:29 Head/Face: Normocephalic, atraumatic. ENT: Moist Mucous membranes Cardiovascular: kb Regular rate Respiratory: Respirations even and unlabored. No increased work of breathing. Talking in full sentences Abdomen/GI: Soft, non-tender. No distention Skin: Warm, dry with normal turgor. Normal color. MS/ Extremity: Pulses equal, no cyanosis. Neurovascular intact. Full, normal range of motion. Neuro: Awake and alert, GCS 15, oriented to person, place, time, and situation. Moves all extremities. Normal gait. 18:29 Constitutional: The patient appears alert, awake, anxious, tearful Vital Signs: 17:54 BP 151 / 93; Pulse 103; Resp 16; Temp 98.1(O); Pulse Ox 100% on R/A; iw 18:43 BP 148 / 90; Pulse 92; Resp 18; Pulse Ox 99% ; ko1 MDM: 17:58 Patient medically screened. kb 18:29 Differential diagnosis: anxiety, depression, acute stress reaction. Data reviewed: kb vital signs, nurses notes. Counseling: I had a detailed discussion with the patient and/or guardian regarding the historical points, exam findings, and any diagnostic results supporting the discharge/admit diagnosis, the need for outpatient follow up, a family practitioner, a psychiatrist, to return to the emergency department if symptoms worsen or persist or if there are any questions or concerns that arise at home. Administered Medications: 18:18 Drug: LORazepam PO 1 mg PO once Route: PO; ko1 18:42 Follow up: Response: No adverse reaction ko1 Disposition Summary: 04/07/24 18:30 Discharge Ordered Notes: Location: Home kb Condition: Stable kb Diagnosis - Anxiety disorder, unspecified kb Followup: kb - With: Emergency Department - When: As needed - Reason: Worsening of condition Followup: kb - With: Private Physician - When: 2 - 3 days - Reason: Recheck today's complaints, Continuance of care, Re-evaluation by your physician Discharge Instructions: - Discharge Summary Sheet kb - Panic Attack, [id number] kb - Generalized Anxiety Disorder, Adult kb - Managing Anxiety, Adult kb Forms: - Medication Reconciliation Form kb - Antibiotic Education kb - Prescription Opioid Use kb - Patient Portal Instructions kb - Leadership Thank You Letter kb Signatures: Ines Gordon, LARS-Fariba SOUSA-Luz Cody, RN RN iw Ayde Moya RN RN ko1
[2024-04-07 19:15] VITALS: BP 148/90; TEMP 98.1; O2SAT 99
== END 2024-04-07 18:47 | disposition home or self-care (01) ==
LOC: ER 17:46
DX: F41.9 Anxiety disorder, unspecified (principal)
CPT/HCPCS: 99283

== ENCOUNTER 2024-04-22 09:00 | Emergency (ER) | payer BC ==
[2024-04-22] MEDS ORDERED: ONDANSETRON 4 MG/2 ML VIAL ONE (09:53)
[2024-04-22] MEDS ORDERED: LORazepam 2 MG/ML VIAL ONE ×2 (09:54→10:44)
[2024-04-22] MEDS ORDERED: NA CHLORIDE 0.9% 1,000 ML ONE (09:54)
[2024-04-22 10:06] LABS: Absolute Eosinophils 0.2 K/uL (0-0.5); Absolute Lymphocytes (CBC) 1.9 K/uL (0.7-4.9); Absolute Monocytes 0.6 K/uL (0.1-1.3); Absolute Neutrophil 3.5 K/uL (1.8-8.0); Basophils % 0.6 % (0-1.3); Eosinophils % 2.6 % (0-4.4); Hematocrit 41.2 % (36.0-45.0); Hemoglobin 14.2 g/dL (12.0-15.0); Lymphocytes % 30.5 % (15.3-44.8); MCH 30.5 pg (27.0-35.0); MCHC 34.5 g/dL (32.0-36.0); MCV 88.6 fL (80-100); MPV 8.9 fL (7.6-11.3); Neutrophils % 56.3 % (41.7-73.7); Nucleated Red Blood Cells % 0.1 % (0-0); Platelets 343 thou/uL (152-406); RBC Red Blood Cell Count 4.65 M/uL (3.86-4.86); Red Cell Distribution Width 13.1 % (12.1-15.2)
[2024-04-22 10:08] LABS: Specific Gravity < 1.005 (1.005-1.030); Urine Bilirubin NEGATIVE (Negative); Urine Blood Negative (Negative); Urine Clarity Clear (Clear); Urine Color Colorless (Yellow); Urine Glucose NEGATIVE (Negative); Urine Ketones NEGATIVE (Negative); Urine Microscopic Reflex YN NO UMIC; Urine Nitrite NEGATIVE (Negative); Urine Protein NEGATIVE (Negative); Urine Urobilinogen Normal (Normal)
[2024-04-22 10:16] LABS: Albumin/Globulin Ratio 1.1 (1.1-1.8); Bilirubin Total 0.2 mg/dL (0.2-1.0); Globulin 3.6 g/dL (2.3-3.5); Protein, Total 7.6 g/dL (6.4-8.2)
--- NOTE | 2024-04-22 10:17 | RAD REPORT ---
EXAM DESCRIPTION: CTAbdomen Pelvis W Contrast - 04/22/2024 10:10 am CLINICAL HISTORY: Abdominal pain. Abd pain;Nausea / vomiting COMPARISON: Abdomen Pelvis W Contrast dated 03/05/2024; Abdomen Pelvis W Contrast dated 06/18/2022 ; Abdomen Pelvis W Contrast dated 11/22/2016; Abdomen Pelvis W Contrast dated 10/10/2016 TECHNIQUE: Biphasic CT imaging of the abdomen and pelvis was performed with 100 ml non-ionic IV cont rast. All CT scans are performed using dose optimization technique as appropriate and may include automated exposure control or mA/KV adjustment according to patient size. FINDINGS: The lung bases are clear.Cholecystectomy. The liver demonstrates mild fatty infiltration. Small low-density lesion is seen in the right lobe of the inferiorly. Spleen, pancreas, adrenal glands and kidneys are within normal limits. No bowel obstruction, free air, free fluid or abscess. Moderate retained stool is present throughout the colon. The appendix is normal. No evidence of significant lymphadenopathy. No suspicious bony findings. IMPRESSION: No acute intra-abdominal or pelvic finding.
--- NOTE | 2024-04-22 11:45 | EDPHYS ---
Physician Documentation [facility] Name: Daria Arboleda Age: 33 yrs Sex: Female : 1990 Arrival Date: 04/22/2024 Time: 09:00 Bed 15 Private MD: ED Physician Kenny Parker HPI: 04/22 11:11 This 33 yrs old Female presents to ER via Ambulatory with complaints of Panic attack. rn 11:11 The patient presents to the emergency department with nausea, vomiting, diarrhea. rn 11:11 Onset: The symptoms/episode began/occurred 2 day(s) ago. Possible causes: unknown. rn Associated signs and symptoms: Pertinent positives: abdominal pain, diarrhea, nausea, vomiting, Pertinent negatives: fever, GI bleeding. Severity of symptoms: At their worst the symptoms were moderate in the emergency department the symptoms are unchanged. The patient has experienced similar episodes in the past. Patient reports nausea/vomiting/diarrhea that began 2 days ago. Recently had multiple medications changed for anxiety. Also feels like he is having a panic attack. States has upset stomach sometimes with panic attacks. Denies fever. No blood in stool. No sick contacts. Took clonazepam at home and did not really help so came in for evaluation.. Historical: - Allergies: 09:14 No Known Allergies; iw - Home Meds: 09:15 Vraylar 3 mg oral capsule daily [Active]; desvenlafaxine succinate 25 mg oral Tablet, iw Extended Release 24 hr [Active]; - PMHx: 09:14 Anxiety; Kidney stone; iw - PSHx: 09:14 Appendectomy; Cholecystectomy; partial hysterectomy; iw - Immunization history:: Client reports receiving the 2nd dose of the Covid vaccine. - Infectious Disease History:: Denies. - Social history:: Smoking status: Reported history of juuling and/or vaping. - Family history:: not pertinent. - Hospitalizations: : No recent hospitalization is reported. ROS: 11:11 Constitutional: Negative for fever, chills, and weight loss, ENT: Negative for injury, rn pain, and discharge, Neck: Negative for injury, pain, and swelling, Cardiovascular: Negative for chest pain, palpitations, and edema, Respiratory: Negative for shortness of breath, cough, wheezing, and pleuritic chest pain, Abdomen/GI: Positive for abdominal pain with nausea/vomiting/diarrhea MS/Extremity: Negative for injury and deformity, Skin: Negative for injury, rash, and discoloration, Neuro: Positive for generalized weakness Exam: 11:11 Constitutional: This is a well developed, well nourished patient who is awake, alert, rn appears anxious ENT: Dry mucous membranes Cardiovascular: Regular rate and rhythm. No pulse deficits. Respiratory: No increased work of breathing, no retractions or nasal flaring. Abdomen/GI: Soft, mild epigastric tenderness. MS/ Extremity: Pulses equal, no cyanosis. Neurovascular intact. Full, normal range of motion. Equal circumference. Neuro: Awake and alert, GCS 15 Vital Signs: 09:12 BP 149 / 99; Pulse 107; Resp 18; Temp 97.2; Pulse Ox 100% on R/A; Weight 108.86 kg; iw Height 5 ft. 3 in. ; 09:23 BP 137 / 98; Pulse 91; Resp 18; Pulse Ox 99% ; db 10:16 BP 131 / 92; Pulse 81; Resp 17 S; Pulse Ox 98% on R/A; kc6 11:30 BP 119 / 59; Pulse 63; Resp 16 S; Pulse Ox 99% on R/A; kc6 09:12 Body Mass Index 42.51 (108.86 kg, 160.02 cm) iw MDM: 09:11 Patient medically screened. rn 11:42 Differential diagnosis: Nonspecific abd pain, gastritis, pancreatitis, appendicitis, rn diverticulitis, viral gastroenteritis, gastroenteritis. Data reviewed: vital signs, nurses notes, lab test result(s), radiologic studies, CT scan, and as a result, I will discharge patient. Care significantly affected by the following chronic conditions: Anxiety. Counseling: I had a detailed discussion with the patient and/or guardian regarding the historical points, exam findings, and any diagnostic results supporting the discharge/admit diagnosis, lab results, the need for outpatient follow up, to return to the emergency department if symptoms worsen or persist or if there are any questions or concerns that arise at home. Response to treatment: the patient's symptoms have markedly improved after treatment, and as a result, I will discharge patient. Special discussion: I discussed with the patient/guardian in detail that at this point there is no indication for admission to the hospital. It is understood, however, that if the symptoms persist or worsen the patient needs to return immediately for re-evaluation. ED course: No acute findings and workup today. Might be combination of anxiety and coming off of the medication abruptly. Patient has appointment with another psychiatrist for second opinion. Patient feels much better and will discharge home.. 04/22 09:36 Order name: CBC with Diff; Complete Time: 10:39 rn 04/22 09:36 Order name: CMP; Complete Time: 10:39 rn 04/22 09:36 Order name: Lipase; Complete Time: 10:39 rn 04/22 09:36 Order name: Test, Urine; Complete Time: 10:39 rn 04/22 09:36 Order name: Urinalysis w/ reflexes; Complete Time: 10:39 rn 04/22 09:36 Order name: CT Abd/Pelvis - IV Contrast Only; Complete Time: 10:39 rn 04/22 09:36 Order name: IV Saline Lock; Complete Time: 10:00 rn 04/22 09:36 Order name: Labs collected and sent; Complete Time: 10:00 rn Administered Medications: 09:55 Drug: NS 0.9% IV 1000 ml IV at 1 bolus Per protocol; 1000 mL bolus Route: IV; Rate: 1 db bolus; Site: right antecubital; 09:55 Drug: Ondansetron IVP 4 mg IVP once; over 2 minutes Route: IVP; Site: right antecubital;db 10:16 Follow up: Response: No adverse reaction kc6 09:55 Drug: Ativan IVP 0.5 mg IVP once Route: IVP; Site: right antecubital; db 10:16 Follow up: Response: No adverse reaction; Anxiety unchanged; RASS: Alert and Calm (0) kc6 10:50 Drug: Ativan IVP 0.5 mg IVP once Route: IVP; Site: right antecubital; kc6 11:47 Follow up: Response: No adverse reaction; Anxiety decreased; RASS: Alert and Calm (0) kc6 Disposition Summary: 04/22/24 11:45 Discharge Ordered Notes: Location: Home rn Problem: new rn Symptoms: have improved rn Condition: Stable rn Diagnosis - Anxiety disorder, unspecified rn Followup: rn - With: Private Physician - When: As needed - Reason: Recheck today's complaints, Re-evaluation by your physician Discharge Instructions: - Discharge Summary Sheet rn - Panic Attack rn - Managing Anxiety, Adult rn Forms: - Medication Reconciliation Form rn - Antibiotic environmental health and safety intern - Prescription Opioid Use rn - Patient Portal Instructions rn - Leadership Thank You Letter rn - Work release form kc6 Signatures: Dispatcher [employer] Luz Cates, Kenny Campos RN, MD MD rn Campbell, Kaitlyn, RN RN kc6 Rossy Santillan RN RN db Corrections: (The following items were deleted from the chart) 09:37 09:37 CBC+H.LAB.BRZ ordered. EDMS EDMS 09:37 09:37 COMPREHENSIVE METABOLIC PANEL+C.LAB.BRZ ordered. EDMS EDMS 09:37 09:37 LIPASE+C.LAB.BRZ ordered. EDMS EDMS 09:37 09:37 Test, Urine+UC.LAB.BRZ ordered. EDMS EDMS 09:37 09:37 Urinalysis+U.LAB.BRZ ordered. EDMS EDMS
--- NOTE | 2024-04-22 11:45 | ER ---
Nurse's Notes [facility] Name: Daria Arboleda Age: 33 yrs Sex: Female : 1990 Arrival Date: 04/22/2024 Time: 09:00 Bed 15 Private MD: Diagnosis: Anxiety disorder, unspecified Presentation: 04/22 09:12 Chief complaint: Patient states: before it was more anxiety attacks and now it's panic iw attacks, Dr. Recinos switched all my meds last week, now she has been throwing up and having diarrhea. Coronavirus screen: At this time, the client does not indicate any symptoms associated with coronavirus-19. Ebola Screen: Patient negative for fever greater than or equal to 101.5 degrees Fahrenheit, and additional compatible Ebola Virus Disease symptoms Patient denies exposure to infectious person. Patient denies travel to an Ebola-affected area in the 21 days before illness onset. No symptoms or risks identified at this time. Initial Sepsis Screen: Does the patient meet any 2 criteria? No. Patient's initial sepsis screen is negative. Does the patient have a suspected source of infection? No. Patient's initial sepsis screen is negative. Risk Assessment: Do you want to hurt yourself or someone else? Patient reports no desire to harm self or others. Onset of symptoms was April 21, 2024. 09:12 Method Of Arrival: Ambulatory iw 09:12 Acuity: AMARJIT 3 iw Historical: - Allergies: 09:14 No Known Allergies; iw - Home Meds: 09:15 Vraylar 3 mg oral capsule daily [Active]; desvenlafaxine succinate 25 mg oral Tablet, iw Extended Release 24 hr [Active]; - PMHx: 09:14 Anxiety; Kidney stone; iw - PSHx: 09:14 Appendectomy; Cholecystectomy; partial hysterectomy; iw - Immunization history:: Client reports receiving the 2nd dose of the Covid vaccine. - Infectious Disease History:: Denies. - Social history:: Smoking status: Reported history of juuling and/or vaping. - Family history:: not pertinent. - Hospitalizations: : No recent hospitalization is reported. Screenin:34 [facility] ED Fall Risk Assessment (Adult) History of falling in the last 3 months, db including since admission No falls in past 3 months (0 pts) Confusion or Disorientation No (0 pts) Intoxicated or Sedated No (0 pts) Impaired Gait No (0 pts) Mobility Assist Device Used No (0 pt) Altered Elimination No (0 pt) Score/Fall Risk Level 0 - 2 = Low Risk Oriented to surroundings, Maintained a safe environment. Abuse screen: Denies threats or abuse. Denies injuries from another. Nutritional screening: No deficits noted. Tuberculosis screening: No symptoms or risk factors identified. Assessment: 09:25 Reassessment: Patient appears in no apparent distress at this time. Patient and/or db family updated on plan of care and expected duration. Pain level reassessed. Patient is alert, oriented x 3, equal unlabored respirations, skin warm/dry/pink. PT AMBULATORY TO RESTROOM IN NO APPARENT DISTRESS. 09:34 General: Appears in no apparent distress. comfortable, Behavior is calm, cooperative. db Pain: Denies pain. Neuro: Level of Consciousness is awake, alert, obeys commands, Oriented to person, place, time, situation. Respiratory: Airway is patent Respiratory effort is even, unlabored, Respiratory pattern is regular, symmetrical. 10:16 Reassessment: Patient appears in no apparent distress at this time. No changes from kc6 previously documented assessment. Patient and/or family updated on plan of care and expected duration. Pain level reassessed. Patient is alert, oriented x 3, equal unlabored respirations, skin warm/dry/pink. Patient states symptoms have not improved. 11:29 Reassessment: Patient appears in no apparent distress at this time. No changes from kc6 previously documented assessment. Patient and/or family updated on plan of care and expected duration. Pain level reassessed. Patient is alert, oriented x 3, equal unlabored respirations, skin warm/dry/pink. Vital Signs: 09:12 BP 149 / 99; Pulse 107; Resp 18; Temp 97.2; Pulse Ox 100% on R/A; Weight 108.86 kg; iw Height 5 ft. 3 in. ; 09:23 BP 137 / 98; Pulse 91; Resp 18; Pulse Ox 99% ; db 10:16 BP 131 / 92; Pulse 81; Resp 17 S; Pulse Ox 98% on R/A; kc6 11:30 BP 119 / 59; Pulse 63; Resp 16 S; Pulse Ox 99% on R/A; kc6 09:12 Body Mass Index 42.51 (108.86 kg, 160.02 cm) iw ED Course: 09:02 Patient arrived in ED. im 09:11 Kenny Praker MD is Attending Physician. rn 09:14 Triage completed. iw 09:14 Arm band placed on. iw 09:25 Rossy Santillan, RN is Primary Nurse. db 09:34 Patient has correct armband on for positive identification. Bed in low position. Call db light in reach. Side rails up X 1. Provided Education on:. Pulse ox on. NIBP on. Warm blanket given. 09:40 Initial lab(s) drawn, by me, sent to lab. Inserted saline lock: 20 gauge in right db antecubital area, using aseptic technique. Blood collected. 10:00 Report received from Rossy Santillan RN. kc6 10:[address] via wheelchair. db 10:04 Report given to IVETTE WELLS. db 10:12 CT Abd/Pelvis - IV Contrast Only In Process Unspecified. EDMS 12:10 No provider procedures requiring assistance completed. IV discontinued, intact, kc6 bleeding controlled, No redness/swelling at site. Pressure dressing applied. Administered Medications: 09:55 Drug: NS 0.9% IV 1000 ml IV at 1 bolus Per protocol; 1000 mL bolus Route: IV; Rate: 1 db bolus; Site: right antecubital; 09:55 Drug: Ondansetron IVP 4 mg IVP once; over 2 minutes Route: IVP; Site: right antecubital;db 10:16 Follow up: Response: No adverse reaction kc6 09:55 Drug: Ativan IVP 0.5 mg IVP once Route: IVP; Site: right antecubital; db 10:16 Follow up: Response: No adverse reaction; Anxiety unchanged; RASS: Alert and Calm (0) kc6 10:50 Drug: Ativan IVP 0.5 mg IVP once Route: IVP; Site: right antecubital; kc6 11:47 Follow up: Response: No adverse reaction; Anxiety decreased; RASS: Alert and Calm (0) kc6 Medication: 09:34 VIS not applicable for this client. db Outcome: 11:45 Discharge ordered by . rn 12:10 Discharged to home ambulatory, with family, kc6 12:10 Condition: improved 12:10 Discharge instructions given to patient, Instructed on discharge instructions, follow up and referral plans. Demonstrated understanding of instructions, follow-up care, 12:10 Patient left the ED. kc6 Signatures: Dispatcher [employer] Luz Cates, Kenny Campos RN, MD MD rn Campbell, Kaitlyn, RN RN kcRossy Marks RN RN db Mendoza, Itzel im
[2024-04-22 12:30] VITALS: BP 119/59; TEMP 97.2; O2SAT 99
== END 2024-04-22 12:10 | disposition home or self-care (01) ==
LOC: ER 09:00
DX: F41.9 Anxiety disorder, unspecified (principal)
CPT/HCPCS: 85025; 36415; 81025; 81003; 83690; 80053; 74177; 96375; 96374; 99285; Q9967; J2405; J7030

== ENCOUNTER 2024-05-19 16:41 | Emergency (ER) | payer BC ==
[2024-05-19] MEDS ORDERED: DIAZEPAM 5 MG TABLET ONE (17:19)
--- NOTE | 2024-05-19 17:57 | EDPHYS ---
Physician Documentation [facility] Name: Daria Arboleda Age: 33 yrs Sex: Female : 1990 Arrival Date: 05/19/2024 Time: 16:41 Bed 11 Private MD: ED Physician Larry Bales HPI: 05/19 17:18 This 33 yrs old Female presents to ER via Ambulatory with complaints of Anxiety. ms3 17:18 33-year-old female with past medical history of anxiety, kidney stone presents to the [facility] emergency department for anxiety attack. Patient states symptoms began yesterday, worse today. Patient notes she is having tingling around her lips, arms and legs. Patient denies pain. Patient denies any alleviating or inciting factors. Patient states she has an appointment with psychiatry scheduled for .. Historical: - Allergies: 16:50 No Known Allergies; mb9 - Home Meds: 16:45 Vraylar 3 mg Oral capsule daily [Active]; venlafaxine Oral [Active]; desvenlafaxine mb9 succinate 25 mg Oral Tablet [Active]; Clonazepam Oral [Active]; - PMHx: 16:45 Anxiety; Kidney stone; mb9 - PSHx: 16:45 Appendectomy; Cholecystectomy; partial hysterectomy; mb9 - Immunization history:: Adult Immunizations up to date. - Infectious Disease History:: Denies. - Social history:: Smoking status: Reported history of juuling and/or vaping. ROS: 17:18 Constitutional: Negative for fever, and chills. Neck: Negative for injury, pain, and ms3 swelling, Cardiovascular: Negative for chest pain, and palpitations. Respiratory: Negative for shortness of breath, cough, wheezing, and pleuritic chest pain, Abdomen/GI: Negative for abdominal pain, nausea, vomiting, diarrhea, and constipation, 17:18 Psych: Positive for anxiety, Exam: 17:18 Constitutional: This is a well developed, well nourished patient who is awake, alert, ms3 and in no acute distress. Head/Face: Normocephalic, atraumatic. Chest/axilla: Normal chest wall appearance and motion. Nontender with no deformity. Cardiovascular: Regular rate and rhythm with a normal S1 and S2. No gallops, murmurs, or rubs. Normal PMI, no JVD. No pulse deficits. Respiratory: Lungs have equal breath sounds bilaterally, clear to auscultation and percussion. No rales, rhonchi or wheezes noted. No increased work of breathing, no retractions or nasal flaring. Abdomen/GI: Soft, non-tender, with normal bowel sounds. No distension or tympany. No guarding or rebound. No evidence of tenderness throughout. Vital Signs: 16:48 BP 142 / 93; Pulse 88; Resp 18; Temp 98; Pulse Ox 98% on R/A; Weight 108.86 kg; Height mb9 5 ft. 3 in. ; 17:59 BP 137 / 88; Pulse 70; Resp 17; Pulse Ox 99% on R/A; rs5 16:48 Body Mass Index 42.51 (108.86 kg, 160.02 cm) mb9 MDM: 17:11 Patient medically screened. ms3 17:18 Differential diagnosis: Anxiety versus hyperventilation. ms3 17:57 Data reviewed: vital signs, nurses notes, and as a result, I will discharge patient. I ms3 considered the following discharge prescriptions or medication management in the emergency department Medications were administered in the Emergency Department. See MAR. Counseling: I had a detailed discussion with the patient and/or guardian regarding the historical points, exam findings, and any diagnostic results supporting the discharge/admit diagnosis, the need for outpatient follow up, to return to the emergency department if symptoms worsen or persist or if there are any questions or concerns that arise at home. Special discussion: I discussed with the patient/guardian in detail that at this point there is no indication for admission to the hospital. It is understood, however, that if the symptoms persist or worsen the patient needs to return immediately for re-evaluation. ED course: on reevaluation patient improved, alert and orient x 4, no apparent distress, nontoxic-appearing, speaking full sentences. Patient given prescription for hydroxyzine 50 mg every 8 hours as needed anxiety. Patient to follow-up with [facility] psychiatry tomorrow as scheduled. All questions were answered. Return precautions discussed include worsening symptoms, or any other concerns. Administered Medications: 17:30 Drug: Diazepam PO 10 mg PO once Route: PO; rs5 18:02 Follow up: Response: No adverse reaction; Anxiety decreased rs5 Disposition Summary: 05/19/24 17:57 Discharge Ordered Notes: Location: Home ms3 Condition: Stable ms3 Diagnosis - Generalized anxiety disorder ms3 Followup: ms3 - With: Private Physician - When: 1 - 2 days - Reason: Recheck today's complaints Discharge Instructions: - Discharge Summary Sheet ms3 - Panic Attack ms3 Forms: - Medication Reconciliation Form ms3 - Antibiotic Education ms3 - Prescription Opioid Use ms3 - Patient Portal Instructions ms3 - Leadership Thank You Letter ms3 Prescriptions: - Hydroxyzine HCl 50 mg Oral Tablet - take 1 tablet ORAL route every 8 hours As needed; 20 tablet; Refills: 0, ms3 Product Selection Permitted Signatures: Larry Bales DO DO ms3 Rosa Elena Alvarez RN RN mb9 Wyatt Francois RN RN rs5
--- NOTE | 2024-05-19 17:57 | ER ---
Nurse's Notes [facility] Name: Daria Arboleda Age: 33 yrs Sex: Female : 1990 Arrival Date: 05/19/2024 Time: 16:41 Bed 11 Private MD: Diagnosis: Generalized anxiety disorder Presentation: 05/19 16:48 Chief complaint: Patient states: "I'm having a really bad anxiety attack. My arms and mb9 legs feels numb and my throat feels like it's closing up.". Coronavirus screen: At this time, the client does not indicate any symptoms associated with coronavirus-19. Ebola Screen: No symptoms or risks identified at this time. Initial Sepsis Screen: Does the patient meet any 2 criteria? No. Patient's initial sepsis screen is negative. Does the patient have a suspected source of infection? No. Patient's initial sepsis screen is negative. Risk Assessment: Do you want to hurt yourself or someone else? Patient reports no desire to harm self or others. Onset of symptoms was May 19, 2024. 16:48 Acuity: AMARJIT 3 mb9 16:48 Method Of Arrival: Ambulatory mb9 Triage Assessment: 16:50 General: Appears in no apparent distress. Behavior is cooperative, anxious. Pain: mb9 Denies pain. Neuro: Reports numbness in right arm, left arm, right leg, left leg and mouth since yesterday. Cardiovascular: Patient's skin is warm and dry. Respiratory: Airway is patent Respiratory effort is even, unlabored, Respiratory pattern is regular, symmetrical. GI: No signs and/or symptoms were reported involving the gastrointestinal system. : No signs and/or symptoms were reported regarding the genitourinary system. Derm: Skin is pink, warm \\T\\ dry. Historical: - Allergies: 16:50 No Known Allergies; mb9 - Home Meds: 16:45 Vraylar 3 mg Oral capsule daily [Active]; venlafaxine Oral [Active]; desvenlafaxine mb9 succinate 25 mg Oral Tablet [Active]; Clonazepam Oral [Active]; - PMHx: 16:45 Anxiety; Kidney stone; mb9 - PSHx: 16:45 Appendectomy; Cholecystectomy; partial hysterectomy; mb9 - Immunization history:: Adult Immunizations up to date. - Infectious Disease History:: Denies. - Social history:: Smoking status: Reported history of juuling and/or vaping. Screenin:45 [facility] ED Fall Risk Assessment (Adult) History of falling in the last 3 months, rs5 including since admission No falls in past 3 months (0 pts) Confusion or Disorientation No (0 pts) Intoxicated or Sedated No (0 pts) Impaired Gait No (0 pts) Mobility Assist Device Used No (0 pt) Altered Elimination No (0 pt) Score/Fall Risk Level 0 - 2 = Low Risk Oriented to surroundings, Maintained a safe environment. Abuse screen: Denies threats or abuse. Nutritional screening: No deficits noted. Tuberculosis screening: No symptoms or risk factors identified. Assessment: 16:46 General: Appears distressed, uncomfortable, Behavior is cooperative, agitated, anxious. rs5 Pain: Denies pain. Neuro: Level of Consciousness is awake, alert, obeys commands, Oriented to person, place, time, situation. Cardiovascular: Patient's skin is warm and dry. Respiratory: Airway is patent Respiratory effort is even, unlabored, Respiratory pattern is regular, symmetrical. GI: Abdomen is round non-distended, Abd is soft and non tender X 4 quads. : No signs and/or symptoms were reported regarding the genitourinary system. EENT: No signs and/or symptoms were reported regarding the EENT system. Derm: Skin is intact, Skin is pink, warm \\T\\ dry. Musculoskeletal: Range of motion: intact in all extremities. 17:58 Reassessment: Patient and/or family updated on plan of care and expected duration. Pain rs5 level reassessed. Patient is alert, oriented x 3, equal unlabored respirations, skin warm/dry/pink. Patient states feeling better. Patient states symptoms have improved. 17:58 General: Behavior is calm, cooperative. rs5 Vital Signs: 16:48 BP 142 / 93; Pulse 88; Resp 18; Temp 98; Pulse Ox 98% on R/A; Weight 108.86 kg; Height mb9 5 ft. 3 in. ; 17:59 BP 137 / 88; Pulse 70; Resp 17; Pulse Ox 99% on R/A; rs5 16:48 Body Mass Index 42.51 (108.86 kg, 160.02 cm) mb9 ED Course: 16:45 Patient arrived in ED. mg5 16:45 Arm band placed on. mb9 16:45 Patient has correct armband on for positive identification. Placed in gown. Bed in low rs5 position. Call light in reach. Side rails up X2. 16:45 No provider procedures requiring assistance completed. rs5 16:49 Triage completed. mb9 17:00 Larry Bales DO is Attending Physician. ms3 17:47 Wyatt Francois, RN is Primary Nurse. rs5 18:05 IV discontinued, intact, bleeding controlled, No redness/swelling at site. Pressure rs5 dressing applied. Administered Medications: 17:30 Drug: Diazepam PO 10 mg PO once Route: PO; rs5 18:02 Follow up: Response: No adverse reaction; Anxiety decreased rs5 Medication: 17:59 VIS not applicable for this client. rs5 Outcome: 17:57 Discharge ordered by . ms3 18:05 Discharged to home ambulatory, rs5 18:05 Condition: stable 18:05 Discharge instructions given to patient, family, Instructed on discharge instructions, follow up and referral plans. medication usage, Demonstrated understanding of instructions, follow-up care, medications, 18:07 Patient left the ED. mb9 Signatures: Larry Bales DO DO ms3 Rosa Elena Alvarez RN RN mb9 Wyatt Francois, RN RN rs5 Marcia Carlson mg5
[2024-05-19 18:45] VITALS: BP 137/88; TEMP 98; O2SAT 99
== END 2024-05-19 18:07 | disposition home or self-care (01) ==
LOC: ER 16:41
DX: F41.1 Generalized anxiety disorder (principal)

== ENCOUNTER 2024-06-30 17:20 | Emergency (ER) | payer BC ==
[2024-06-30] MEDS ORDERED: HYDROCODONE/APAP 7.5/325 MG TAB ONE (18:17)
--- NOTE | 2024-06-30 18:46 | RAD REPORT ---
EXAM DESCRIPTION: US - Extremity Venous Uni Ltd - 06/30/2024 6:36 pm CLINICAL HISTORY: Pain COMPARISON: None. TECHNIQUE: Real-time sonographic evaluation of the left lower extremity deep venous system was perfo rmed. FINDINGS: Incompletely compressible left posterior tibial vein consistent with the presence of throm bus. The remaining vessels were patent and compressible. IMPRESSION: Positive for deep venous thrombosis in the left posterior tibial vein. Conveyed to Amelie Gordon by Dr. Arriola at 1843 on 06/30/24
[2024-06-30 20:04] LABS: Absolute Basophils 0.1 K/uL (0-0.5); Absolute Eosinophils 0.1 K/uL (0-0.5); Absolute Lymphocytes (CBC) 2.3 K/uL (0.7-4.9); Absolute Monocytes 0.7 K/uL (0.1-1.3); Absolute Neutrophil 3.7 K/uL (1.8-8.0); Eosinophils % 1.8 % (0-4.4); Hematocrit 39.3 % (36.0-45.0); Lymphocytes % 32.9 % (15.3-44.8); MCV 90.8 fL (80-100); MPV 8.5 fL (7.6-11.3); Monocytes % 9.8 % (3.3-12.3); Neutrophils % 54.5 % (41.7-73.7); Platelets 305 thou/uL (152-406); RBC Red Blood Cell Count 4.33 M/uL (3.86-4.86); Red Cell Distribution Width 13.7 % (12.1-15.2)
[2024-06-30 20:20] LABS: Anion Gap 8.9 mEq/L (5.0-15.0); Potassium 3.9 mEq/L (3.5-5.1)
[2024-06-30 20:26] LABS: PTT, Activated Partial Thromb 32.2 SECONDS (24.3-36.9); Protime INR 0.98
--- NOTE | 2024-06-30 21:02 | RAD REPORT ---
EXAM DESCRIPTION: CT - Chest For Pe Angio - 06/30/2024 8:51 pm CLINICAL HISTORY: r/o pe COMPARISON: No comparisons TECHNIQUE: Dynamically enhanced axial 3 mm thick images of the chest were obtained during administra tion of <100> mL Isovue 370 IV contrast. Coronal and oblique reconstruction images were generated and reviewed. Exam utilizes a protocol for optimal evaluation of pulmonary arterial tree. Maximum intensity projections 3D imaging was utilized All CT scans are performed using dose optimization technique as appropriate and may include automated exposure control or mA/KV adjustment according to patient size. FINDINGS: Chest Wall: No suspicious thyroid nodules or pathologic lymphadenopathy. Lungs: No acute abnormality. The extreme lung bases were not included in the field of view. Pleura: No significant effusions or pneumothorax. Mediastinum/[place]: No pathologic lymphadenopathy. Pulmonary arteries/Aorta: No filling defect identified. Note that the extreme lung bases were not inc luded in the field of view. No aortic aneurysm. Aberrant right subclavian artery. Heart: No significant pericardial effusion. Normal heart size. Upper abdomen: No acute abnormality. Bones: No acute abnormality. IMPRESSION: Negative for pulmonary embolism. No acute findings in the chest.
--- NOTE | 2024-06-30 21:06 | ER ---
Nurse's Notes [facility] Name: Daria Arboleda Age: 34 yrs Sex: Female : 1990 Arrival Date: 06/30/2024 Time: 17:20 Bed 17 Private MD: Diagnosis: Acute embolism and thrombosis of unspecified deep veins of left lower extremity Presentation: 06/30 18:14 Chief complaint: Patient states: left lower leg pain, onset 1.5 weeks ago, no known nj1 injury, getting worse. Coronavirus screen: Vaccine status: Patient reports receiving the 2nd dose of the covid vaccine. Ebola Screen: Patient denies travel to an Ebola-affected area in the 21 days before illness onset. Initial Sepsis Screen: Does the patient meet any 2 criteria? HR > 90 bpm. No. Patient's initial sepsis screen is negative. Does the patient have a suspected source of infection? No. Patient's initial sepsis screen is negative. Risk Assessment: Do you want to hurt yourself or someone else? Patient reports no desire to harm self or others. Onset of symptoms was May 2024. 18:14 Method Of Arrival: Ambulatory [facility] 18:14 Acuity: AMARJIT 3 nj1 Triage Assessment: 18:16 General: Appears in no apparent distress. uncomfortable, Behavior is calm, cooperative, nj1 appropriate for age. Pain: Complains of pain in medial aspect of left calf Pain currently is 8 out of 10 on a pain scale. Neuro: Level of Consciousness is awake, alert, obeys commands, Oriented to person, place, time, situation. Cardiovascular: Patient's skin is warm and dry. Respiratory: Airway is patent Respiratory effort is even, unlabored. 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 - Infectious Disease History:: Denies. - Social history:: Smoking status: Patient denies any tobacco usage or history of. Screenin:14 [facility] ED Fall Risk Assessment (Adult) History of falling in the last 3 months, kj2 including since admission No falls in past 3 months (0 pts) Confusion or Disorientation No (0 pts) Intoxicated or Sedated No (0 pts) Impaired Gait No (0 pts) Mobility Assist Device Used No (0 pt) Altered Elimination No (0 pt) Score/Fall Risk Level 0 - 2 = Low Risk Maintained a safe environment, Educated pt \T\ family on fall prevention, incl call for assistance when getting out of bed, Hourly rounding (assess needs \T\ fall precautionary measures) done. Abuse screen: Denies threats or abuse. Denies injuries from another. Nutritional screening: No deficits noted. Tuberculosis screening: No symptoms or risk factors identified. Assessment: 20:12 General: Appears uncomfortable, Behavior is calm, cooperative. Pain: Complains of pain kj2 in left leg and medial aspect of left calf. Neuro: Level of Consciousness is awake, alert, obeys commands, Oriented to person, place, time, situation. Cardiovascular: Capillary refill Patient's skin is warm and dry. Respiratory: Airway is patent Respiratory effort is even, unlabored. GI: No deficits noted. : No deficits noted. 20:23 Reassessment: No changes from previously documented assessment. Patient and/or family kj2 updated on plan of care and expected duration. Pain level reassessed. Patient is alert, oriented x 3, equal unlabored respirations, skin warm/dry/pink. 21:23 Reassessment: Patient and/or family updated on plan of care and expected duration. Pain mb9 level reassessed. Patient is alert, oriented x 3, equal unlabored respirations, skin warm/dry/pink. Patient states feeling better. Patient states symptoms have improved. Vital Signs: 18:14 BP 152 / 84; Pulse 93; Resp 17; Temp 97.9(O); Pulse Ox 97% ; Weight 108.86 kg; Height 5 nj1 ft. 3 in. ; Pain 8/10; 20:11 BP 137 / 76; Pulse 68; Resp 20; Temp 98.1; Pulse Ox 99% on R/A; kj2 21:23 BP 130 / 84; Pulse 75; Resp 18; Pulse Ox 100% on R/A; mb9 18:14 Body Mass Index 42.51 (108.86 kg, 160.02 cm) [facility] 18:14 Pain Scale: Adult nj1 ED Course: 17:24 Patient arrived in ED. mg5 17:25 Ines Gordon [facility]-C [facility]. nj1 17:28 Gurmeet Beard MD is Attending Physician. kb 18:15 Triage completed. nj1 18:16 Arm band placed on right wrist. nj1 18:38 US Extremity Venous Unilateral Ltd In Process Unspecified. EDMS 19:22 Ligia Fontana, RN is Primary Nurse. kj2 20:04 Inserted saline lock: 20 gauge in left antecubital area, using aseptic technique. Blood kj2 collected. Flushed with 10 mL NS. 20:14 Patient has correct armband on for positive identification. Bed in low position. Call kj2 light in reach. Provided Education on: call light, fall precaution. 20:28 EKG done, by ED staff, reviewed by Ines GARCIA. mb9 20:52 CT Chest For PE Angio In Process Unspecified. EDMS 21:24 No provider procedures requiring assistance completed. mb9 21:24 IV discontinued, intact, bleeding controlled, No redness/swelling at site. Pressure mb9 dressing applied. Administered Medications: 18:20 Drug: Hydrocodone-Acetaminophen PO (7.5 mg-325 mg) 1 tabs PO once Route: PO; nj1 21:11 Follow up: Response: No adverse reaction mb9 21:17 Drug: Eliquis PO 10 mg PO once Route: PO; mb9 21:17 Drug: Ketorolac IM 30 mg IM once Route: IM; Site: right deltoid; mb9 Medication: 20:14 VIS not applicable for this client. kj2 Outcome: 21:05 Discharge ordered by . kb 21:24 Discharged to home ambulatory, with family, mb9 21:24 Condition: stable 21:24 Discharge instructions given to patient, Instructed on discharge instructions, follow up and referral plans. Demonstrated understanding of instructions, follow-up care, medications, Prescriptions given X 1, 21:25 Patient left the ED. mb9 Signatures: Dispatcher [employer] EDMS Ines oGrdon FNP-C FNP-Ckb Wilkerson, Mary Beth RN RN mb9 Sierra Webb RN RN nj1 Marcia Carlson mg5 Ligia Fontana, RN RN kj2
--- NOTE | 2024-06-30 21:06 | EDPHYS ---
Physician Documentation [facility] Name: Daria Arboleda Age: 34 yrs Sex: Female : 1990 Arrival Date: 06/30/2024 Time: 17:20 Bed 17 Private MD: Gurmeet Arroyo HPI: 06/30 21:09 This 34 yrs old Female presents to ER via Ambulatory with complaints of Leg Pain. kb 21:09 Patient is a 34-year-old female who presents for pain to medial aspect of left calf kb that started a week and a half ago. Denies injury or trauma. States the pain has been getting worse so she came in for evaluation. Denies shortness of breath, fever. 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 - Infectious Disease History:: Denies. - Social history:: Smoking status: Patient denies any tobacco usage or history of. ROS: 21:09 Constitutional: As per HPI kb Exam: 21:02 Constitutional: This is a well developed, well nourished patient who is awake, alert, kb and in no acute distress. Head/Face: Normocephalic, atraumatic. ENT: Moist Mucous membranes Cardiovascular: Regular rate Respiratory: Respirations even and unlabored. No increased work of breathing. Talking in full sentences Abdomen/GI: Soft, non-tender. No distention Skin: Warm, dry with normal turgor. Normal color. Neuro: Awake and alert, GCS 15, oriented to person, place, time, and situation. Moves all extremities. Normal gait. 21:02 ECG was reviewed by the Attending Physician. 21:02 Musculoskeletal/extremity: Extremities: grossly normal except: noted in the medial aspect of left calf: pain, tenderness, ROM: intact in all extremities, Circulation is intact in all extremities. Sensation intact. Weight bearing: able to fully bear weight, Vital Signs: 18:14 BP 152 / 84; Pulse 93; Resp 17; Temp 97.9(O); Pulse Ox 97% ; Weight 108.86 kg; Height 5 nj1 ft. 3 in. ; Pain 8/10; 20:11 BP 137 / 76; Pulse 68; Resp 20; Temp 98.1; Pulse Ox 99% on R/A; kj2 21:23 BP 130 / 84; Pulse 75; Resp 18; Pulse Ox 100% on R/A; mb9 18:14 Body Mass Index 42.51 (108.86 kg, 160.02 cm) nj1 18:14 Pain Scale: Adult nj1 MDM: 17:28 Patient medically screened. kb 21:03 Differential diagnosis: dvt, strain. Data reviewed: vital signs, nurses notes. kb Discussion of test interpretation with radiology: I had a discussion with radiology regarding a test interpretation. discussed US results with Dr Arriola. Counseling: I had a detailed discussion with the patient and/or guardian regarding the historical points, exam findings, and any diagnostic results supporting the discharge/admit diagnosis, lab results, radiology results, the need for outpatient follow up, a family practitioner, to return to the emergency department if symptoms worsen or persist or if there are any questions or concerns that arise at home. 06/30 19:13 Order name: CBC with Diff; Complete Time: 20:08 kb 06/30 19:13 Order name: BMP; Complete Time: 20:29 kb 06/30 19:13 Order name: Protime (+inr); Complete Time: 20:29 kb 06/30 19:13 Order name: Ptt, Activated; Complete Time: 20:29 kb 06/30 18:02 Order name: US Extremity Venous Unilateral Ltd; Complete Time: 19:11 kb 06/30 19:13 Order name: CT Chest For PE Angio; Complete Time: 21:03 kb 06/30 19:13 Order name: EKG - Nurse/Tech; Complete Time: 20:28 kb EC:02 Rate is 74 beats/min. Rhythm is regular. QRS [place] is Normal. ND interval is normal at kb 144 msec. QRS interval is normal at 98 msec. QT interval is normal at 430 msec. Administered Medications: 18:20 Drug: Hydrocodone-Acetaminophen PO (7.5 mg-325 mg) 1 tabs PO once Route: PO; nj1 21:11 Follow up: Response: No adverse reaction [facility] 21:17 Drug: Eliquis PO 10 mg PO once Route: PO; mb9 21:17 Drug: Ketorolac IM 30 mg IM once Route: IM; Site: right deltoid; mb9 Disposition Summary: 06/30/24 21:05 Discharge Ordered Notes: Location: Home kb Condition: Stable kb Diagnosis - Acute embolism and thrombosis of unspecified deep veins of left lower extremity kb Followup: kb - With: Emergency Department - When: As needed - Reason: Worsening of condition Followup: kb - With: Private Physician - When: 2 - 3 days - Reason: Recheck today's complaints, Continuance of care, Re-evaluation by your physician Discharge Instructions: - Discharge Summary Sheet kb - Deep Vein Thrombosis kb Forms: - Medication Reconciliation Form kb - Antibiotic Education kb - Prescription Opioid Use kb - Patient Portal Instructions kb - Leadership Thank You Letter kb - Work release form mb9 Prescriptions: - Eliquis DVT-PE Treat 30D Start 5 mg (74 tabs) Oral Tablet, Dose Pack - take 2 tablet ORAL route 2 times per day for 7 days Take 10mg BID for 7 days, kb then 5mg BID; 74 tablet; Refills: 0, Product Selection Permitted Signatures: Dispatcher [employer] EDMS Ines Gordon, VB NET PROGRAMMER-C VB NET PROGRAMMER-Rosa Elena Lenz RN RN mb9 Sierra Webb RN RN nj1 Corrections: (The following items were deleted from the chart) 19:13 19:13 Chest For PE Angio+[id number].RAD.BRZ ordered. EDAL EDMS
[2024-06-30] MEDS ORDERED: APIXABAN 5 MG TABLET ONE (21:12)
[2024-06-30] MEDS ORDERED: KETOROLAC 30 MG/ML INJ ONE (21:13)
[2024-07-01 08:26] VITALS: TEMP 98.1
[2024-07-01 08:28] VITALS: BP 130/84; O2SAT 100
== END 2024-06-30 21:25 | disposition home or self-care (01) ==
LOC: ER 17:20
DX: I82.402 Acute embolism and thrombosis of unspecified deep veins of left lower extremity (principal)
CPT/HCPCS: 85025; 80048; 36415; 85610; 85730; 71275; 93971; Q9967; 93005

== ENCOUNTER 2024-07-05 01:40 | Emergency (ER) | payer BC ==
[2024-07-05] MEDS ORDERED: ONDANSETRON 4 MG/2 ML VIAL ONE (02:50)
[2024-07-05] MEDS ORDERED: LORazepam 2 MG/ML VIAL ONE (02:51)
[2024-07-05] MEDS ORDERED: KETOROLAC 30 MG/ML INJ ONE (02:52)
[2024-07-05] MEDS ORDERED: NA CHLORIDE 0.9% 1,000 ML ONE (02:52)
[2024-07-05 03:14] LABS: Absolute Basophils 0.1 K/uL (0-0.5); Absolute Eosinophils 0.2 K/uL (0-0.5); Absolute Lymphocytes (CBC) 3.1 K/uL (0.7-4.9); Absolute Neutrophil 5.5 K/uL (1.8-8.0); Basophils % 0.6 % (0-1.3); Eosinophils % 2.3 % (0-4.4); Hematocrit 40.5 % (36.0-45.0); Hemoglobin 13.9 g/dL (12.0-15.0); Lymphocytes % 31.6 % (15.3-44.8); MCH 30.7 pg (27.0-35.0); MCHC 34.4 g/dL (32.0-36.0); MCV 89.3 fL (80-100); MPV 8.5 fL (7.6-11.3); Monocytes % 9.8 % (3.3-12.3); Neutrophils % 55.7 % (41.7-73.7); Nucleated Red Blood Cells % 0.2 % (0-0); Platelets 336 thou/uL (152-406); RBC Red Blood Cell Count 4.54 M/uL (3.86-4.86); Red Cell Distribution Width 13.7 % (12.1-15.2)
[2024-07-05 03:22] LABS: Albumin 4.3 g/dL (3.4-5.0); Albumin/Globulin Ratio 1.2 (1.1-1.8); Anion Gap 10.3 mEq/L (5.0-15.0); Bilirubin Total 0.3 mg/dL (0.2-1.0); Globulin 3.5 g/dL (2.3-3.5); Potassium 3.3 mEq/L (3.5-5.1); Protein, Total 7.8 g/dL (6.4-8.2)
[2024-07-05] MEDS ORDERED: TRAMADOL HCL 50 MG TAB ONE (04:21)
--- NOTE | 2024-07-05 07:51 | ER ---
Nurse's Notes [facility] Name: Daria Arboleda Age: 34 yrs Sex: Female : 1990 Arrival Date: 07/05/2024 Time: 01:40 Bed 14 Private MD: Diagnosis: Pain in left lower leg Presentation: 07/05 01:51 Chief complaint: Patient states: I was here Saturday and got diagnosed with a blood clot ha1 on leg. I have been taking the prescribed medications but my pain is getting worse. 01:51 Coronavirus screen: Vaccine status: Patient reports receiving the 1st dose of the Covid ha1 vaccine. [employer]. Ebola Screen: No symptoms or risks identified at this time. Initial Sepsis Screen: Does the patient meet any 2 criteria? No. Patient's initial sepsis screen is negative. Does the patient have a suspected source of infection? No. Patient's initial sepsis screen is negative. Risk Assessment: Do you want to hurt yourself or someone else? Patient reports no desire to harm self or others. Onset of symptoms was July 05, 2024. 01:51 Method Of Arrival: Wheelchair ha1 01:51 Acuity: AMARJIT 3 ha1 Triage Assessment: 01:51 General: Appears uncomfortable, Behavior is calm, cooperative. Pain: Complains of pain ha1 in left calf Pain does not radiate. Pain currently is 8 out of 10 on a pain scale. Quality of pain is described as pressure, sharp, Pain began gradually. Neuro: Level of Consciousness is awake, alert, obeys commands, Oriented to person, place, time, situation. Cardiovascular: Capillary refill < 3 seconds Patient's skin is warm and dry. Respiratory: Airway is patent Respiratory effort is even, unlabored, Respiratory pattern is regular, symmetrical. Derm: Skin is pink, warm \T\ dry. Musculoskeletal: Circulation, motion, and sensation intact. Range of motion: intact in all extremities. 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 - Infectious Disease History:: Denies. - Social history:: Smoking status: Patient denies any tobacco usage or history of. Screenin:30 Abuse screen: Denies threats or abuse. Denies injuries from another. Nutritional ha1 screening: No deficits noted. Tuberculosis screening: No symptoms or risk factors identified. 02:30 [facility] ED Fall Risk Assessment (Adult) History of falling in the last 3 months, rg5 including since admission No falls in past 3 months (0 pts) Confusion or Disorientation No (0 pts) Intoxicated or Sedated No (0 pts) Impaired Gait Yes (1 pt) Mobility Assist Device Used No (0 pt) Altered Elimination No (0 pt) Score/Fall Risk Level 0 - 2 = Low Risk Oriented to surroundings, Maintained a safe environment, Provided non-skid footwear, Hourly rounding (assess needs \T\ fall precautionary measures) done. Assessment: 02:30 General: Appears in no apparent distress. Behavior is calm, cooperative, appropriate rg5 for age. 02:30 Pain: Complains of pain in left leg Pain currently is 8 out of 10 on a pain scale. rg5 Quality of pain is described as aching, throbbing, Pain began 2-3 days ago. Is continuous, Alleviated by medications, rest, Aggravated by increased activity, weight bearing. Neuro: Level of Consciousness is awake, alert, obeys commands, Oriented to person, place, time, situation. Cardiovascular: Denies chest pain, Heart tones S1 S2 Capillary refill < 3 seconds. Respiratory: Airway is patent Trachea midline. GI: Abdomen is round Abd is soft and non tender X 4 quads. : No signs and/or symptoms were reported regarding the genitourinary system. EENT: No deficits noted. Derm: No deficits noted. Musculoskeletal: Range of motion: intact in all extremities. 03:21 Reassessment: Patient and/or family updated on plan of care and expected duration. Pain rg5 level reassessed. Patient is alert, oriented x 3, equal unlabored respirations, skin warm/dry/pink. 03:54 Reassessment: No changes from previously documented assessment. Patient and/or family rg5 updated on plan of care and expected duration. Pain level reassessed. Patient is alert, oriented x 3, equal unlabored respirations, skin warm/dry/pink. 04:26 Reassessment: Patient and/or family updated on plan of care and expected duration. Pain rg5 level reassessed. Patient is alert, oriented x 3, equal unlabored respirations, skin warm/dry/pink. 05:38 Reassessment: Patient and/or family updated on plan of care and expected duration. Pain rg5 level reassessed. Patient is alert, oriented x 3, equal unlabored respirations, skin warm/dry/pink. Patient states feeling better. Patient states symptoms have improved. 06:14 Reassessment: Patient and/or family updated on plan of care and expected duration. Pain rg5 level reassessed. Patient is alert, oriented x 3, equal unlabored respirations, skin warm/dry/pink. Patient states feeling better. Patient states symptoms have improved. Vital Signs: 01:51 BP 129 / 96; Pulse 95; Resp 17 S; Temp 97.7(O); Pulse Ox 100% on R/A; Weight 99.79 kg; ha1 03:21 BP 120 / 65; Pulse 77; Resp 17; Pulse Ox 96% on R/A; rg5 04:26 BP 141 / 69; Pulse 77; Resp 18; Pain 8/10; rg5 05:38 BP 110 / 59; Pulse 79; Resp 17; Pulse Ox 99% ; Pain 2/10; rg5 06:13 BP 112 / 63; Pulse 77; Resp 17; Temp 98; Pulse Ox 99% on R/A; rg5 07:58 BP 140 / 88; Pulse 89; Resp 16; Pulse Ox 97% ; bp 04:26 Pain Scale: Adult rg5 05:38 Pain Scale: Adult rg5 Landry Coma Score: 02:30 Eye Response: spontaneous(4). Motor Response: obeys commands(6). Verbal Response: rg5 oriented(5). Total: 15. ED Course: 01:41 Patient arrived in ED. [id number] 02:09 Thomas Ambrose, IVETTE is Primary Nurse. rg5 02:15 Antonio Yun MD is Attending Physician. bo1 02:28 Triage completed. ha1 02:30 No provider procedures requiring assistance completed. Inserted saline lock: 20 gauge rg5 in right forearm, using aseptic technique. Blood collected. Flushed with 10 mL NS. 02:30 Patient has correct armband on for positive identification. Bed in low position. Call rg5 light in reach. Side rails up X 1. Adult w/ patient. 02:30 Door closed. Noise minimized. Warm blanket given. rg5 02:45 Arm band placed on right wrist. rg5 03:04 Basic Metabolic Panel Sent. rg5 03:49 US Extremity Venous W Compression Yony In Process Unspecified. EDMS 07:58 IV discontinued, intact, bleeding controlled, No redness/swelling at site. Pressure bp dressing applied. Administered Medications: 02:45 Drug: NS 0.9% IV 1000 ml IV at 1 bolus Per protocol; 1000 mL bolus Route: IV; Rate: 1 rg5 bolus; Site: right forearm; 04:49 Follow up: Response: No adverse reaction; IV Status: Completed infusion; IV Intake: rg5 1000ml 02:45 Drug: Ondansetron IVP 4 mg IVP once; over 2 minutes Route: IVP; Site: right forearm; rg5 04:51 Follow up: Response: No adverse reaction rg5 02:45 Drug: Ketorolac IVP 30 mg IVP once Route: IVP; Site: right forearm; rg5 04:48 Follow up: Response: Pain is decreased rg5 02:45 Drug: Ativan IVP 1 mg IVP once Route: IVP; Site: right forearm; rg5 04:48 Follow up: Response: No adverse reaction rg5 04:25 Drug: traMADol PO 100 mg PO once Route: PO; rg5 04:48 Follow up: Response: Pain is decreased rg5 Medication: 02:30 VIS not applicable for this client. rg5 Intake: 04:49 IV: 1000ml; Total: 1000ml. rg5 Outcome: 07:50 Discharge ordered by . gabriella 07:58 Discharged to home ambulatory, bp 07:58 Condition: stable 07:58 Discharge instructions given to patient, Instructed on discharge instructions, follow up and referral plans. medication usage, Demonstrated understanding of instructions, follow-up care, medications, Prescriptions given X 1, 07:59 Patient left the ED. bp Signatures: Dispatcher [employer] EDAleksey Ibarra, RN RN bp Gloria Beyer jj6 Kadie Garcia RN RN ha1 Antonio Yun MD MD bo1 Gallardo, Rommel RN RN rg5
--- NOTE | 2024-07-05 07:51 | EDPHYS ---
Physician Documentation [facility] Name: Daria Arboleda Age: 34 yrs Sex: Female : 1990 Arrival Date: 07/05/2024 Time: 01:40 Bed 14 Private MD: ED Physician Antonio Yun HPI: 07/05 02:34 This 34 yrs old Female presents to ER via Wheelchair with complaints of Pt states she bo1 was treated here on Saturday for DVT and the pain in leg has progressed., Leg Pain. 02:34 The patient presents with pain, that is acute. The complaints affect the medial aspect bo1 of left calf. Context: The problem was sustained Saturday, this week. Onset: The symptoms/episode began/occurred acutely. Associated signs and symptoms: Pertinent positives: calf tenderness. Treatment prior to arrival includes: prescription medications, Eliquis. Severity of symptoms: At their worst the symptoms were moderate, "chest pain" due to anxiety. The patient has been recently seen at the [facility] Emergency Department, Saturday. Pt's risk factors are vaping and on hormonal replacement therapy for partial hysterectomy. 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 - Infectious Disease History:: Denies. - Social history:: Smoking status: Patient denies any tobacco usage or history of. ROS: 02:37 Constitutional: Negative for fever, chills, and weight loss, bo1 02:37 Cardiovascular: Positive for chest pain, 02:37 Respiratory: Negative for cough, shortness of breath, acute changes, 02:37 MS/extremity: Positive for pain, of the left leg and medial aspect of left calf, Exam: 05:28 Constitutional: This is a well developed, well nourished patient who is awake, alert, bo1 and in no acute distress. 05:28 Constitutional: The patient appears alert, awake, comfortable, Pt is c/o of pain to the LLE 05:28 Eyes: Exam is negative for 05:28 Neck: Exam negative for 05:28 Cardiovascular: Rate: normal, Rhythm: regular, Pulses: no pulse deficits are appreciated, 05:28 Respiratory: the patient does not display signs of respiratory distress, Respirations: normal, Breath sounds: are clear throughout, 05:28 Abdomen/GI: Inspection: abdomen appears normal, Palpation: abdomen is soft and non-tender, voluntary guarding, 05:28 Musculoskeletal/extremity: Extremities: grossly normal except: noted in the medial aspect of left calf: pain, tenderness, 05:28 Skin: Appearance: Color: normal in color, Temperature: normal temperature, warm, diaphoresis is not appreciated, Vital Signs: 01:51 BP 129 / 96; Pulse 95; Resp 17 S; Temp 97.7(O); Pulse Ox 100% on R/A; Weight 99.79 kg; ha1 03:21 BP 120 / 65; Pulse 77; Resp 17; Pulse Ox 96% on R/A; rg5 04:26 BP 141 / 69; Pulse 77; Resp 18; Pain 8/10; rg5 05:38 BP 110 / 59; Pulse 79; Resp 17; Pulse Ox 99% ; Pain 2/10; rg5 06:13 BP 112 / 63; Pulse 77; Resp 17; Temp 98; Pulse Ox 99% on R/A; rg5 07:58 BP 140 / 88; Pulse 89; Resp 16; Pulse Ox 97% ; bp 04:26 Pain Scale: Adult rg5 05:38 Pain Scale: Adult rg5 [place] Coma Score: 02:30 Eye Response: spontaneous(4). Motor Response: obeys commands(6). Verbal Response: rg5 oriented(5). Total: 15. MDM: 02:16 Patient medically screened. bo1 05:30 Differential diagnosis: DVT as previously diagnosed and treated. Anxiety and pain bo1 control concerns. Possible extra DVTs. Data reviewed: vital signs, old medical records, lab test result(s), CBC, electrolytes, D-dimer. Response to treatment: the patient's symptoms have mildly improved after treatment, Pain control initiated. 05:39 Medication response: Tramadol - Good effect, pt is asleep. is comfortable to bo1 take her home debora if no new DVTs are found. ED course: Awaiting the doppler US results. 07:49 Special discussion: Improved doppler u/s showing no further DVTs or DVT.. bo1 07:50 Data reviewed: radiologic studies, doppler. bo1 07/05 02:18 Order name: Basic Metabolic Panel bo1 07/05 02:18 Order name: CBC with Diff; Complete Time: 03:40 bo1 07/05 02:18 Order name: D-Dimer; Complete Time: 03:40 bo1 07/05 02:18 Order name: CMP; Complete Time: 03:40 bo07/05 02:18 Order name: Lipase; Complete Time: 03:40 bo07/05 02:19 Order name: US Extremity Venous W Compression Yony bo1 07/05 02:18 Order name: IV Saline Lock; Complete Time: 03:04 bo07/05 02:18 Order name: Labs collected and sent; Complete Time: 03:04 bo Administered Medications: 02:45 Drug: NS 0.9% IV 1000 ml IV at 1 bolus Per protocol; 1000 mL bolus Route: IV; Rate: 1 rg5 bolus; Site: right forearm; 04:49 Follow up: Response: No adverse reaction; IV Status: Completed infusion; IV Intake: rg5 1000ml 02:45 Drug: Ondansetron IVP 4 mg IVP once; over 2 minutes Route: IVP; Site: right forearm; rg5 04:51 Follow up: Response: No adverse reaction rg5 02:45 Drug: Ketorolac IVP 30 mg IVP once Route: IVP; Site: right forearm; rg5 04:48 Follow up: Response: Pain is decreased rg5 02:45 Drug: Ativan IVP 1 mg IVP once Route: IVP; Site: right forearm; rg5 04:48 Follow up: Response: No adverse reaction rg5 04:25 Drug: traMADol PO 100 mg PO once Route: PO; rg5 04:48 Follow up: Response: Pain is decreased rg5 Disposition Summary: 07/05/24 07:50 Discharge Ordered Notes: Continue Eliquis for a max of 10 days since the start date. Location: Home bo1 Problem: an ongoing problem bo1 Symptoms: have improved bo1 Condition: Stable bo1 Diagnosis - Pain in left lower leg bo1 Followup: bo1 - With: Private Physician - When: 1 week - Reason: Recheck today's complaints, Continuance of care Discharge Instructions: - Discharge Summary Sheet bo1 - Muscle Pain, Adult bo1 Forms: - Work release form bo1 - Medication Reconciliation Form bo1 - Antibiotic Education bo1 - Prescription Opioid Use bo1 - Patient Portal Instructions bo1 - Leadership Thank You Letter bo1 Prescriptions: - Ultram 50 mg Oral Tablet - take 1 tablet ORAL route every 6 hours As needed; 12 tablet; Refills: 0, bo1 Product Selection Permitted Signatures: Dispatcher [employer] Kadie Flores RN RN ha1 Antonio Yun MD MD bo1 Thomas Ambrose RN RN rg5
[2024-07-05 08:25] VITALS: TEMP 98
[2024-07-05 08:26] VITALS: BP 140/88; O2SAT 97
--- NOTE | 2024-07-06 10:26 | RAD REPORT ---
EXAM DESCRIPTION: US - Extrem Venous W Compress Yony - 07/05/2024 3:47 am CLINICAL HISTORY: Pain. Recent left posterior tibial DVT. COMPARISON: US left leg vein 06/30/2024 report without images TECHNIQUE: Grayscale, color Doppler, duplex Doppler, spectral Doppler images and analysis with compr ession and augmentation of right and left lower extremity veins. FINDINGS: Right and Left common femoral, greater saphenous, femoral, deep (profunda) femoral, poplit eal, posterior tibial veins unremarkable without evidence of clot. IMPRESSION: No sonographic evidence of right or left lower extremity DVT. Electronically signed by: Florencio Sanders MD 07/05/2024 04:20 AM CDT RP Due to temporary technical issues with the PACS/Fluency reporting system, reports are being signed by the in house radiologist without review as a courtesy to ensure prompt reporting. The interpreting r adiologist is fully responsible for the content of the report.
== END 2024-07-05 07:59 | disposition home or self-care (01) ==
LOC: ER 01:40
DX: M79.662 Pain in left lower leg (principal); Z86.718 Personal history of other venous thrombosis and embolism; Z79.01 Long term (current) use of anticoagulants
CPT/HCPCS: 96361; 85025; 36415; 85379; 83690; 80053; 93970; 96375; 96374; 99284; J2405; J7030

== ENCOUNTER 2024-07-15 10:00 | Emergency (ER) | payer BC ==
--- NOTE | 2024-07-15 11:24 | RAD REPORT ---
EXAM DESCRIPTION: US - Extremity Venous Uni Ltd - 07/15/2024 11:14 am CLINICAL HISTORY: Left ankle, jean pain COMPARISON: 07/05/2024, 06/30/2024 TECHNIQUE: Real-time sonographic evaluation of the left lower extremity deep venous system was perfo rmed. FINDINGS: Normal compressibility, flow augmentation, phasic flow and spontaneous flow is identified in the left lower extremity deep venous system. No intraluminal filling defects seen. The posterior t ibial vein was difficult to assess but some flow was present on the Doppler. IMPRESSION: No DVT in the left lower extremity.
[2024-07-15] MEDS ORDERED: ONDANSETRON 4 MG (ODT) TAB ONE (11:31)
[2024-07-15] MEDS ORDERED: HYDROCODONE/APAP 5/325 MG TAB ONE (11:31)
[2024-07-15 12:14] LABS: Absolute Eosinophils 0.1 K/uL (0-0.5); Absolute Lymphocytes (CBC) 1.8 K/uL (0.7-4.9); Absolute Monocytes 0.7 K/uL (0.1-1.3); Absolute Neutrophil 4.1 K/uL (1.8-8.0); Basophils % 0.6 % (0-1.3); Eosinophils % 1.4 % (0-4.4); Hematocrit 40.2 % (36.0-45.0); Hemoglobin 13.2 g/dL (12.0-15.0); Lymphocytes % 27.1 % (15.3-44.8); MCH 29.7 pg (27.0-35.0); MCHC 32.9 g/dL (32.0-36.0); MCV 90.3 fL (80-100); MPV 8.8 fL (7.6-11.3); Monocytes % 10.6 % (3.3-12.3); Neutrophils % 60.3 % (41.7-73.7); Platelets 314 thou/uL (152-406); RBC Red Blood Cell Count 4.45 M/uL (3.86-4.86); Red Cell Distribution Width 13.7 % (12.1-15.2)
[2024-07-15 12:28] LABS: PT Prothrombin Time 11.9 SECONDS (9.4-12.5); PTT, Activated Partial Thromb 32.4 SECONDS (24.3-36.9); Protime INR 1.06
[2024-07-15 12:30] LABS: Anion Gap 11.7 mEq/L (5.0-15.0); Potassium 3.7 mEq/L (3.5-5.1)
--- NOTE | 2024-07-15 13:24 | EDPHYS ---
Physician Documentation [facility] Name: Daria Arboleda Age: 34 yrs Sex: Female : 1990 Arrival Date: 07/15/2024 Time: 10:00 Bed Treatment Private MD: ED Physician Alvaro Jacobs HPI: 07/15 10:38 This 34 yrs old Female presents to ER via Wheelchair with complaints of Leg ec2 Pain, Ankle Swelling. 10:38 Patient arrives today for evaluation of worsening left ankle swelling. Patient reports ec2 recent diagnosis of DVT, was on Eliquis for short period of time for 2 weeks and subsequently was told to stop this as she had a repeat ultrasound that was negative for DVT. Patient reports worsening swelling, denies any fever or vomiting. 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 - Infectious Disease History:: Denies. - Social history:: Smoking status: unknown. ROS: 10:39 Constitutional: as per hpi ec2 Exam: 10:39 Constitutional: GEN: NAD Head: atraumatic Eyes: EOMI Ears: External ears are ec2 normal. CV: regular rate LUNGS: no respiratory distress ABD: non-distended SKIN: Left lower extremity swelling appreciated, intact distal neurovascular status. MSK: no evidence of trauma Vital Signs: 10:37 BP 145 / 69; Pulse 96; Resp 18; Temp 98.2; Pulse Ox 98% on R/A; Weight 108.86 kg; ph Height 5 ft. 3 in. ; 10:37 Body Mass Index 42.51 (108.86 kg, 160.02 cm) ph MDM: 10:25 Patient medically screened. ec2 10:39 Data reviewed: vital signs. ED course: Patient arrives today for left lower extremity ec2 swelling in the setting of history of DVT. Will obtain repeat ultrasonography, lab work. Suspect possible repeat DVT, additionally considered other process for cellulitis, thrombophlebitis, doubt process such as arterial pathology. 11:26 ED course: DVT ultrasound negative.. ec2 12:58 ED course: Metabolic profile reassuring, CBC reassuring. negative. . ec2 13:22 ED course: On reassessment patient is well-appearing in no acute distress. Will ec2 discharge to home. Return precautions given.. 07/15 10:38 Order name: CBC with Diff; Complete Time: 12:58 ec2 07/15 10:38 Order name: BMP; Complete Time: 12:58 ec2 07/15 10:38 Order name: PT-INR; Complete Time: 12:58 ec2 07/15 10:38 Order name: Ptt, Activated; Complete Time: 12:58 ec2 07/15 10:38 Order name: Test, Serum; Complete Time: 12:58 ec2 07/15 10:38 Order name: Extremity Venous Uni Ltd US; Complete Time: 11:26 ec2 Administered Medications: 11:33 Drug: HYDROcodone-acetaminophen PO 5 mg-325 mg 1 tabs PO once Route: PO; ph 14:15 Follow up: Response: No adverse reaction; Pain is decreased me1 11:33 Drug: Ondansetron IVP 4 mg IVP once; over 2 minutes Route: IVP; Site: Other; ph 14:15 Follow up: Response: No adverse reaction; Nausea is decreased me1 Disposition Summary: 07/15/24 13:23 Discharge Ordered Notes: Location: Home ec2 Condition: Stable ec2 Diagnosis - Pain in left lower leg ec2 Followup: ec2 - With: Private Physician - When: - Reason: Re-evaluation by your physician Discharge Instructions: - Discharge Summary Sheet ec2 - Musculoskeletal Pain ec2 Forms: - Medication Reconciliation Form ec2 - Antibiotic Education ec2 - Prescription Opioid Use ec2 - Patient Portal Instructions ec2 - Leadership Thank You Letter ec2 Prescriptions: - methocarbamol 500 mg Oral tablet - take 1 tablet ORAL route 4 times per day; 15 tablet; Refills: 0, Product ec2 Selection Permitted Signatures: Dispatcher [employer] Christine Kessler RN RN Alvaro Jacobs MD MD ec2 Vicki Shaikh RN me1 Corrections: (The following items were deleted from the chart) 10:38 10:38 CBC+H.LAB.BRZ ordered. EDMS EDMS 10:38 10:38 BASIC METABOLIC PANEL+C.LAB.BRZ ordered. EDMS EDMS 10:38 10:38 PROTIME (+INR)+COAG.LAB.BRZ ordered. EDMS EDMS 10:38 10:38 PTT, ACTIVATED+COAG.LAB.BRZ ordered. EDMS EDMS 10:38 10:38 TEST, SERUM+SC.LAB.BRZ ordered. EDMS EDMS 10:38 10:38 Extremity Venous Uni Ltd+US.RAD.BRZ ordered. EDMS EDMS
--- NOTE | 2024-07-15 13:24 | ER ---
Nurse's Notes [facility] Name: Daria Arboleda Age: 34 yrs Sex: Female : 1990 Arrival Date: 07/15/2024 Time: 10:00 Bed Treatment Private MD: Diagnosis: Pain in left lower leg Presentation: 07/15 10:33 Chief complaint: Patient states: Recent hx of blood clot in L leg, stopped taking ph Eliquis approx 1 week ago, is having pain and swelling in same area. Coronavirus screen: Vaccine status: Patient reports receiving the 2nd dose of the covid vaccine. Ebola Screen: No symptoms or risks identified at this time. Initial Sepsis Screen: Does the patient meet any 2 criteria? No. Patient's initial sepsis screen is negative. Does the patient have a suspected source of infection? No. Patient's initial sepsis screen is negative. Risk Assessment: Do you want to hurt yourself or someone else? Patient reports no desire to harm self or others. Onset of symptoms was July 15, 2024. 10:33 Method Of Arrival: Wheelchair ph 10:33 Acuity: AMARJIT 3 ph Triage Assessment: 10:35 General: Appears in no apparent distress. Behavior is calm, cooperative. Pain: ph Complains of pain in left leg. 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 - Infectious Disease History:: Denies. - Social history:: Smoking status: unknown. Screenin:15 [facility] ED Fall Risk Assessment (Adult) History of falling in the last 3 months, me1 including since admission No falls in past 3 months (0 pts) Confusion or Disorientation No (0 pts) Intoxicated or Sedated No (0 pts) Impaired Gait No (0 pts) Mobility Assist Device Used No (0 pt) Altered Elimination No (0 pt) Score/Fall Risk Level 0 - 2 = Low Risk Maintained a safe environment, Provided non-skid footwear, Hourly rounding (assess needs \T\ fall precautionary measures) done. Abuse screen: Denies threats or abuse. Nutritional screening: No deficits noted. Tuberculosis screening: No symptoms or risk factors identified. Assessment: 13:15 General: Appears uncomfortable, well groomed, well developed, well nourished, Behavior me1 is calm, cooperative, appropriate for age, Reports Recent hx of blood clot in L leg, stopped taking Eliquis approx 1 week ago, is having pain and swelling in same area. Pain: Complains of pain in left leg Pain currently is 6 out of 10 on a pain scale. Quality of pain is described as pressure, Pain began gradually, Is continuous. Neuro: Level of Consciousness is awake, alert, obeys commands, Oriented to person, place, time, situation, Appropriate for age. Cardiovascular: Patient's skin is warm and dry. Respiratory: Airway is patent Trachea midline Respiratory effort is even, unlabored, Respiratory pattern is regular, symmetrical. GI: No signs and/or symptoms were reported involving the gastrointestinal system. : No signs and/or symptoms were reported regarding the genitourinary system. EENT: No signs and/or symptoms were reported regarding the EENT system. Derm: Skin is intact, is healthy with good turgor, Skin is pink, warm \T\ dry. Musculoskeletal: Reports pain in left leg. Vital Signs: 10:37 BP 145 / 69; Pulse 96; Resp 18; Temp 98.2; Pulse Ox 98% on R/A; Weight 108.86 kg; ph Height 5 ft. 3 in. ; 10:37 Body Mass Index 42.51 (108.86 kg, 160.02 cm) ph ED Course: 10:02 Patient arrived in ED. im 10:16 Alvaro Jacobs MD is Attending Physician. ec2 10:35 Triage completed. ph 10:35 Arm band placed on Patient placed in waiting room, Patient notified of wait time. ph 11:16 Extremity Venous Uni Ltd US In Process Unspecified. EDMS 12:05 Test, Serum Sent. bc6 12:05 Ptt, Activated Sent. bc6 12:05 PT-INR Sent. bc6 12:05 BMP Sent. bc6 12:05 CBC with Diff Sent. bc6 12:05 Initial lab(s) drawn, by il, sent to lab. straight stick. bc6 13:14 Vicki Shaikh, RN is Primary Nurse. me1 13:15 Patient has correct armband on for positive identification. Bed in low position. Call me1 light in reach. Side rails up X2. Provided Education on: POC. Verbalized understanding. . Client placed on continuous cardiac and pulse oximetry monitoring. NIBP monitoring applied. Pulse ox on. NIBP on. 13:15 No provider procedures requiring assistance completed. Patient did not have IV access me1 during this emergency room visit. Administered Medications: 11:33 Drug: HYDROcodone-acetaminophen PO 5 mg-325 mg 1 tabs PO once Route: PO; ph 14:15 Follow up: Response: No adverse reaction; Pain is decreased me1 11:33 Drug: Ondansetron IVP 4 mg IVP once; over 2 minutes Route: IVP; Site: Other; ph 14:15 Follow up: Response: No adverse reaction; Nausea is decreased me1 Medication: 13:15 VIS not applicable for this client. me1 Outcome: 13:23 Discharge ordered by . ec2 14:19 Discharged to home ambulatory, me1 14:19 Condition: stable 14:19 Discharge instructions given to patient, Instructed on discharge instructions, follow up and referral plans. medication usage, Demonstrated understanding of instructions, follow-up care, medications, Prescriptions given X 1, 14:19 Patient left the ED. me1 Signatures: Dispatcher [employer] Christine Kessler RN RN Randa Angel 6 Dahiana Johnson Michelle, RN RN me1 Alvaro Jacobs MD MD ec2 Corrections: (The following items were deleted from the chart) 14:16 10:33 Chief complaint: Patient states: Recent hx of blood clot in L leg, stopped taking me1 Eliquis approx 1 week ago, is having pain and swelling in same area ph
[2024-07-15 14:38] VITALS: BP 145/69; TEMP 98.2; O2SAT 98
== END 2024-07-15 14:19 | disposition home or self-care (01) ==
LOC: ER 10:00
DX: M79.662 Pain in left lower leg (principal); R22.42 Localized swelling, mass and lump, left lower limb
CPT/HCPCS: 85025; 80048; 36415; 84703; 85610; 85730; 93971; Q0162

== ENCOUNTER 2024-07-29 17:17 | Emergency (ER) | payer BC ==
[2024-07-29] MEDS ORDERED: ONDANSETRON 4 MG/2 ML VIAL ONE (17:50)
[2024-07-29] MEDS ORDERED: KETOROLAC 30 MG/ML INJ ONE (17:51)
[2024-07-29] MEDS ORDERED: ASPIRIN 81 MG CHEWABLE TABLET ONE (17:51)
--- NOTE | 2024-07-29 18:08 | RAD REPORT ---
EXAM DESCRIPTION: Viviana Single View07/29/2024 6:01 pm CLINICAL HISTORY: Chest pain COMPARISON: 2020 FINDINGS: The lungs appear clear of acute infiltrate. The heart is normal size IMPRESSION: No acute abnormalities displayed
[2024-07-29 18:14] LABS: Absolute Eosinophils 0.1 K/uL (0-0.5); Absolute Lymphocytes (CBC) 2.3 K/uL (0.7-4.9); Absolute Monocytes 0.6 K/uL (0.1-1.3); Absolute Neutrophil 2.6 K/uL (1.8-8.0); Basophils % 0.7 % (0-1.3); Eosinophils % 2.3 % (0-4.4); Hematocrit 40.6 % (36.0-45.0); Hemoglobin 13.7 g/dL (12.0-15.0); Lymphocytes % 40.5 % (15.3-44.8); MCH 30.4 pg (27.0-35.0); MCHC 33.8 g/dL (32.0-36.0); MPV 8.5 fL (7.6-11.3); Monocytes % 10.6 % (3.3-12.3); Neutrophils % 45.9 % (41.7-73.7); Nucleated Red Blood Cells % 0.1 % (0-0); Platelets 288 thou/uL (152-406); RBC Red Blood Cell Count 4.51 M/uL (3.86-4.86); Red Cell Distribution Width 13.5 % (12.1-15.2)
[2024-07-29 18:35] LABS: ALT/SGPT 29 U/L (13-56); AST/SGOT 19 U/L (15-37); Albumin 2.5 g/dL (3.4-5.0); Albumin/Globulin Ratio 0.5 (1.1-1.8); Alkaline Phosphatase 49 U/L (45-117); Anion Gap 9.3 mEq/L (5.0-15.0); BUN Blood Urea Nitrogen 10 mg/dL (7-18); Bicarbonate 28 mEq/L (21-32); Bilirubin Total 0.2 mg/dL (0.2-1.0); Globulin 4.9 g/dL (2.3-3.5); Glomerular Filtration Rate 92 ml/min (=/>90); Glucose Level 56 mg/dL (74-106); Potassium 3.3 mEq/L (3.5-5.1); Protein, Total 7.4 g/dL (6.4-8.2); Sodium Level 138 mEq/L (136-145)
[2024-07-29 18:50] LABS: Troponin High Sensitivity < 3.0 pg/mL (<58.9)
--- NOTE | 2024-07-29 19:05 | ER ---
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 Coronavirus kc6 screen: At this time, the client does not indicate any symptoms associated with coronavirus-19. Ebola Screen: No symptoms or risks identified at this time. Initial Sepsis Screen: Does the patient meet any 2 criteria? No. Patient's initial sepsis screen is negative. Does the patient have a suspected source of infection? No. Patient's initial sepsis screen is negative. Risk Assessment: Do you want to hurt yourself or someone else? Patient reports no desire to harm self or others. Onset of symptoms was July 29, 2024. 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 - Infectious Disease History:: Denies. - Social history:: Smoking status: Reported history of juuling and/or vaping. Screenin:06 [facility] ED Fall Risk Assessment (Adult) History of falling in the last 3 months, dd2 including since admission No falls in past 3 months (0 pts) Confusion or Disorientation No (0 pts) Intoxicated or Sedated No (0 pts) Impaired Gait No (0 pts) Mobility Assist Device Used No (0 pt) Altered Elimination No (0 pt) Score/Fall Risk Level 0 - 2 = Low Risk Oriented to surroundings, Maintained a safe environment, Hourly rounding (assess needs \T\ fall precautionary measures) done. Abuse screen: Denies threats or abuse. Nutritional screening: No deficits noted. Tuberculosis screening: No symptoms or risk factors identified. Assessment: 18:06 General: Appears in no apparent distress. Behavior is calm, cooperative, appropriate dd2 for age. Pain: Complains of pain in mid-sternal area Pain currently is 4 out of 10 on a pain scale. Neuro: No deficits noted. Level of Consciousness is awake, alert, obeys commands, Oriented to person, place, time, situation, Appropriate for age. Cardiovascular: Reports chest pain, Denies shortness of breath, Heart tones S1 S2 Patient's skin is warm and dry. Chest pain is described as mild. Respiratory: No deficits noted. Airway is patent Respiratory effort is even, unlabored, Respiratory pattern is regular, symmetrical. GI: No deficits noted. No signs and/or symptoms were reported involving the gastrointestinal system. : No deficits noted. No signs and/or symptoms were reported regarding the genitourinary system. EENT: No deficits noted. No signs and/or symptoms were reported regarding the EENT system. Derm: No deficits noted. No signs and/or symptoms reported regarding the dermatologic system. Musculoskeletal: No deficits noted. No signs and/or symptoms reported regarding the musculoskeletal system. 19:22 Reassessment: Patient appears in no apparent distress at this time. Patient and/or jb4 family updated on plan of care and expected duration. Pain level reassessed. Patient is alert, oriented x 3, equal unlabored respirations, skin warm/dry/pink. Patient denies pain at this time. Patient states feeling better. Patient states symptoms have improved. Vital Signs: 17:24 BP 137 / 83; Pulse 99; Resp 16 S; Pulse Ox 100% on R/A; Weight 108.86 kg (R); Height 5 kc6 ft. 3 in. (R); Pain 7/10; 18:06 BP 122 / 79; Pulse 82; Resp 16; Pulse Ox 99% ; dd2 17:24 Body Mass Index 42.51 (108.86 kg, 160.02 cm) 6 17:24 Pain Scale: Adult [facility] ED Course: 17:24 Patient arrived in ED. mg5 17:24 Sandy Menezes MD is Attending Physician. sd2 17:25 Triage completed. kc6 17:25 Arm band placed on. kc6 17:48 Christine Calvillo, RN is Primary Nurse. ph 18:02 XRAY Chest (1 view) In Process Unspecified. EDMS 18:06 Patient has correct armband on for positive identification. Placed in gown. Bed in low dd2 position. Call light in reach. Side rails up X 1. Provided Education on: CALL LIGHT, MEDICATIONS, PROCEDURES. Door closed. Pillow given. Verbal reassurance given. 18:06 No provider procedures requiring assistance completed. Initial lab(s) drawn, by ca, dd2 sent to lab. Inserted saline lock: 20 gauge in right antecubital area, using aseptic technique. Blood collected. Flushed with 10 mL NS. 18:14 EKG done, by ED staff, reviewed by Sandy Menezes MD. dd2 19:22 IV discontinued, intact, bleeding controlled, No redness/swelling at site. Pressure jb4 dressing applied. Administered Medications: 17:41 CANCELLED (Physician Discretion): ativan0.5 mg IVP once sd2 18:11 Drug: Ondansetron IVP 4 mg IVP once; over 2 minutes Route: IVP; Site: right antecubital;dd2 18:26 Follow up: Response: No adverse reaction dd2 18:12 Drug: Aspirin PO Chewable Tablet 324 mg PO once; 81 mg tablets x 4 Route: PO; dd2 18:42 Follow up: Response: No adverse reaction dd2 18:12 Drug: Ketorolac IVP 15 mg IVP once Route: IVP; Site: right antecubital; dd2 18:27 Follow up: Response: No adverse reaction dd2 Medication: 18:06 VIS not applicable for this client. dd2 Outcome: 19:05 Discharge ordered by . sd2 19:22 Discharged to home ambulatory, jb4 19:22 Condition: stable 19:22 Discharge instructions given to patient, Instructed on discharge instructions, follow up and referral plans. Demonstrated understanding of instructions, follow-up care, 19:23 Patient left the ED. jb4 Signatures: Dispatcher [employer] ED[facility] Christine Calvillo RN RN Gab Gambino RN RN jb4 Sandy Menezes MD MD sd2 Viridiana St RN RN 6 Marcia Carlson mg5 CAROLYNE PHELPS RN RN dd2
--- NOTE | 2024-07-29 19:05 | EDPHYS ---
Physician Documentation [facility] Name: Daria Arboleda Age: 34 yrs Sex: Female : 1990 Arrival Date: 07/29/2024 Time: 17:17 Bed 7 Private MD: ED Physician Sandy Menezes HPI: 07/29 17:41 This 34 yrs old Female presents to ER via Ambulatory with complaints of Chest Pain. sd2 17:41 34 yo F presents with CC of midsternal chest pain, lightheadedness and nausea. Reports sd2 ongoing this afternoon while at work. No SOB or diaphoresis. Reports leg pain that has been ongoing and unchanged since diagnosed with DVT last month. Remains compliant with her Eliquis. Reports feels similar to panic attacks in the past but the pain feels different. Took her Klonopin a few hours ago without improvement of symptoms.. 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 - Infectious Disease History:: Denies. - Social history:: Smoking status: Reported history of juuling and/or vaping. ROS: 17:41 Constitutional: Negative for fever, chills, and weight loss, Eyes: Negative for injury, sd2 pain, redness, and discharge, 17:41 Respiratory: Negative for shortness of breath, cough, wheezing. Abdomen/GI: Negative for abdominal pain, nausea, vomiting, diarrhea. MS/Extremity: Negative for injury and deformity, Skin: Negative for injury, rash, and discoloration, Neuro: Negative for headache, numbness and tingling. 17:41 Cardiovascular: Positive for chest pain, Negative for edema, palpitations, Exam: 17:41 Constitutional: This is a well developed, well nourished patient who is awake, alert, sd2 and in no acute distress. Head/Face: Normocephalic, atraumatic. Eyes: EOMI, normal conjunctiva bilaterally Chest/axilla: Normal chest wall appearance and motion. Nontender with no deformity. Cardiovascular: Regular rate and rhythm with a normal S1 and S2. No gallops, murmurs, or rubs. 2+ distal pulses. Respiratory: Lungs have equal breath sounds bilaterally, clear to auscultation and percussion. No rales, rhonchi or wheezes noted. No increased work of breathing, no retractions or nasal flaring. Abdomen/GI: Soft, non-tender, with normal bowel sounds. No guarding or rebound. No evidence of tenderness throughout. Skin: Warm, dry with normal turgor. Normal color with no rashes, no lesions, and no evidence of cellulitis. MS/ Extremity: Pulses equal, no cyanosis. Neurovascular intact. Full, normal range of motion. Psych: Awake, alert, with orientation to person, place and time. Behavior, mood, and affect are within normal limits. 19:06 ECG was reviewed by the Attending Physician. NSR, rate 89, no STEMI criteria sd2 Vital Signs: 17:24 BP 137 / 83; Pulse 99; Resp 16 S; Pulse Ox 100% on R/A; Weight 108.86 kg (R); Height 5 kc6 ft. 3 in. (R); Pain 7/10; 18:06 BP 122 / 79; Pulse 82; Resp 16; Pulse Ox 99% ; dd2 17:24 Body Mass Index 42.51 (108.86 kg, 160.02 cm) [place] 17:24 Pain Scale: Adult kc MDM: 17:40 Patient medically screened. sd2 17:41 Differential diagnosis: anxiety, MSK, costochondritis, ACS, DVT/PE among others. Data sd2 reviewed: vital signs, nurses notes, lab test result(s), EKG, radiologic studies. I considered the following discharge prescriptions or medication management in the emergency department Medications were administered in the Emergency Department. See JAN. 19:03 HEART Score: History: Slightly Suspicious (0), ECG: Normal (0), Age: < or = 45 years sd2 (0), Risk Factors: No Risk Factors Known (0), Troponin: < or = 1 x Normal Limit (0), Total Score = 0. Care significantly affected by the following chronic conditions: Anxiety. Counseling: I had a detailed discussion with the patient and/or guardian regarding the historical points, exam findings, and any diagnostic results supporting the discharge/admit diagnosis, lab results, radiology results, the need for outpatient follow up, to return to the emergency department if symptoms worsen or persist or if there are any questions or concerns that arise at home. ED course: labs and imaging reviewed and reassuring. Grossly WNCL. Trop neg. EKG with no ischemic changes. CXR with no acute process. pt feeling improved at time of repeat evaluation and she is comfortable with plan for discharge and outpatient follow up with PCP. Verbalizes understanding of dc plan and strict return precautions. . 07/29 17:41 Order name: CBC with Diff; Complete Time: 18:19 sd2 07/29 17:41 Order name: CMP; Complete Time: 18:56 sd2 07/29 17:41 Order name: Troponin High Sensitivity; Complete Time: 18:56 sd2 07/29 17:41 Order name: D-Dimer; Complete Time: 18:19 sd2 07/29 17:41 Order name: XRAY Chest (1 view); Complete Time: 18:19 sd2 07/29 17:41 Order name: EKG - Nurse/Tech; Complete Time: 17:42 sd2 Administered Medications: 17:41 CANCELLED (Physician Discretion): ativan0.5 mg IVP once sd2 18:11 Drug: Ondansetron IVP 4 mg IVP once; over 2 minutes Route: IVP; Site: right antecubital;dd2 18:26 Follow up: Response: No adverse reaction dd2 18:12 Drug: Aspirin PO Chewable Tablet 324 mg PO once; 81 mg tablets x 4 Route: PO; dd2 18:42 Follow up: Response: No adverse reaction dd2 18:12 Drug: Ketorolac IVP 15 mg IVP once Route: IVP; Site: right antecubital; dd2 18:27 Follow up: Response: No adverse reaction dd2 Disposition Summary: 07/29/24 19:05 Discharge Ordered Problem: new sd2 Symptoms: have improved sd2 Condition: Stable sd2 Diagnosis - Chest pain, unspecified sd2 - Anxiety sd2 Followup: sd2 - With: Private Physician - When: 2 - 3 days - Reason: Recheck today's complaints, Continuance of care, Re-evaluation by your physician Discharge Instructions: - Discharge Summary Sheet sd2 - Nonspecific Chest Pain, Adult sd2 - Managing Anxiety, Adult sd2 Forms: - Medication Reconciliation Form sd2 - Antibiotic Education sd2 - Prescription Opioid Use sd2 - Patient Portal Instructions sd2 - Leadership Thank You Letter sd2 Signatures: Dispatcher [employer] Sandy Davidson MD MD sd2 Viridiana [address] RN RN kc6 CAROLYNE PHELPS RN RN dd2 Corrections: (The following items were deleted from the chart) 17:41 17:41 Ativan IVP 0.5 mg IVP once ordered. sd2 sd2
[2024-07-29 19:54] VITALS: BP 122/79; O2SAT 99
--- NOTE | 2024-07-31 14:11 | EKG ---
Test Date: 2024-07-29 Test Time: 17:31:00 [employer]: SHERRIE MEASUREMENT RESULTS: Intervals: Rate: 89 WA: 138 QRSD: 100 QT: 370 QTc: 450 [place]: P: 76 WA: 138 QRS: 63 T: 48 INTERPRETIVE STATEMENTS: Normal sinus rhythm Normal ECG Compared to ECG 06/30/2024 20:26:13 Myocardial infarct finding no longer present Electronically Signed On 07-31-24 14:07:51 CDT by Daniel Agosto
== END 2024-07-29 19:23 | disposition home or self-care (01) ==
LOC: ER 17:17
DX: R07.9 Chest pain, unspecified (principal); F41.9 Anxiety disorder, unspecified
CPT/HCPCS: 93005; 85025; 36415; 85379; 84484; 80053; 71045; 96375; 96374; 99284; J2405

== ENCOUNTER 2024-08-19 17:31 | Emergency (ER) | payer BC ==
[2024-08-19 18:11] LABS: Absolute Basophils 0.1 K/uL (0-0.5); Absolute Eosinophils 0.2 K/uL (0-0.5); Absolute Lymphocytes (CBC) 2.8 K/uL (0.7-4.9); Absolute Monocytes 0.8 K/uL (0.1-1.3); Basophils % 0.8 % (0-1.3); Eosinophils % 1.9 % (0-4.4); Hematocrit 39.7 % (36.0-45.0); Hemoglobin 13.7 g/dL (12.0-15.0); Lymphocytes % 31.6 % (15.3-44.8); MCH 30.6 pg (27.0-35.0); MCHC 34.5 g/dL (32.0-36.0); MCV 88.8 fL (80-100); MPV 8.4 fL (7.6-11.3); Monocytes % 9.3 % (3.3-12.3); Neutrophils % 56.4 % (41.7-73.7); Platelets 293 thou/uL (152-406); RBC Red Blood Cell Count 4.47 M/uL (3.86-4.86); Red Cell Distribution Width 13.5 % (12.1-15.2)
[2024-08-19 18:13] LABS: PT Prothrombin Time 14.4 SECONDS (9.4-12.5); Protime INR 1.3
[2024-08-19 18:23] LABS: Specific Gravity 1.028 (1.005-1.030)
[2024-08-19 18:28] LABS: ALT/SGPT 49 U/L (13-56); AST/SGOT 18 U/L (15-37); Albumin 3.9 g/dL (3.4-5.0); Alkaline Phosphatase 52 U/L (45-117); Anion Gap 7.7 mEq/L (5.0-15.0); BUN Blood Urea Nitrogen 18 mg/dL (7-18); Bicarbonate 26 mEq/L (21-32); Bilirubin Total 0.2 mg/dL (0.2-1.0); Globulin 3.8 g/dL (2.3-3.5); Glomerular Filtration Rate 83 ml/min (=/>90); Glucose Level 88 mg/dL (74-106); NT PRO-BNP 7 pg/mL (<125); Potassium 3.7 mEq/L (3.5-5.1); Protein, Total 7.7 g/dL (6.4-8.2); Sodium Level 135 mEq/L (136-145)
[2024-08-19 18:29] LABS: Bilirubin Direct < 0.2 mg/dL (0-0.2); Troponin High Sensitivity < 3.0 pg/mL (<58.9)
--- NOTE | 2024-08-19 19:01 | RAD REPORT ---
EXAMINATION: ONE VIEW CHEST XR CLINICAL INDICATION: Female, 34 years old.,DYSPNEA TECHNIQUE: Frontal chest projection is submitted. Examination is limited by patient positioning and t echnique. COMPARISON: 07/29/2024 FINDINGS: The lungs are well inflated and clear. No pneumothorax or sizable effusion. The heart is normal in s ize. IMPRESSION: No acute intrathoracic abnormalities.
[2024-08-19] MEDS ORDERED: MORPHINE 4 MG/ML SYR ONE (19:47)
--- NOTE | 2024-08-19 20:20 | RAD REPORT ---
EXAM: Chest For Pe Angio TECHNIQUE: CT angiogram of the chest was performed following intravenous administration of 94 mL Isov ue-370, including sagittal and coronal as well as maximum intensity projection reformats. One or more of the following dose reduction techniques were used: Automated exposure control, adjustment of the mA and kV according to patient size, and iterative reconstruction. Unless otherwise specified, incidental findings do not require dedicated imaging follow-up. INDICATION: [facility] hx of dvt, chest pain COMPARISON: Chest radiograph of the same day. FINDINGS: LINES/TUBES: None. PULMONARY ARTERIES: Main pulmonary arteries are normal in caliber. No filling defects within the pul monary arteries to suggest pulmonary embolus. LUNGS AND AIRWAYS: The lungs and central airways are normal without focal abnormality. PLEURA: No effusion or pneumothorax. HEART AND MEDIASTINUM: Incidentally noted apparent right subclavian artery coursing posterior to the esophagus. The visualized thyroid gland is normal. No mediastinal, hilar, or axillary lymphadenopathy. Heart is unremarkable. No pericardial effusion. SOFT TISSUES AND BONES: No acute osseous abnormality. No significant soft tissue finding. UPPER ABDOMEN: Unremarkable. IMPRESSION: No evidence of acute central pulmonary emboli. No suspicious intrathoracic findings..
--- NOTE | 2024-08-19 20:24 | ER ---
Nurse's Notes [facility] Name: Daria Arboleda Age: 34 yrs Sex: Female : 1990 Arrival Date: 08/19/2024 Time: 17:31 Bed 16 Private MD: Diagnosis: Chest pain, unspecified Presentation: 08/19 17:38 Chief complaint: Patient states: CP STARTED LAST NIGHT. TOOK ANXIETY MEDS DID NOT HELP db ABNORMAL ECG YESTERDAY. FOLLOWUP APPT WITH CARDIOLOGY ON FOR STRESS TEST AND ECHO. HX OF BLOOD CLOT. TAKING ELOQUIS FOR BLOOD CLOT AND FUROSEMIDE FOR SWELLING. LEFT LEG SWELLING STARTED SWELLING TODAY. STILL HAS LEFT LEG PAIN AND SWELLING FROM TODAY. Coronavirus screen: Client denies travel out of the [place] in the last 14 days. At this time, the client does not indicate any symptoms associated with coronavirus-19. Ebola Screen: Patient negative for fever greater than or equal to 101.5 degrees Fahrenheit, and additional compatible Ebola Virus Disease symptoms Patient denies exposure to infectious person. Patient denies travel to an Ebola-affected area in the 21 days before illness onset. No symptoms or risks identified at this time. Initial Sepsis Screen: Does the patient meet any 2 criteria? No. Patient's initial sepsis screen is negative. Does the patient have a suspected source of infection? No. Patient's initial sepsis screen is negative. Risk Assessment: Do you want to hurt yourself or someone else? Patient reports no desire to harm self or others. Onset of symptoms was August 19, 2024. 17:38 Method Of Arrival: Ambulatory db 17:38 Acuity: AMARJIT 2 db Triage Assessment: 17:40 General: Appears in no apparent distress. uncomfortable, Behavior is calm, cooperative. db Pain: Complains of pain in chest. Neuro: Level of Consciousness is awake, alert, obeys commands, Oriented to person, place, time, situation. Cardiovascular: Reports chest pain, shortness of breath. Respiratory: Airway is patent Respiratory effort is even, unlabored, Respiratory pattern is regular, symmetrical. 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 - Infectious Disease History:: Denies. - Social history:: Smoking status: Reported history of juuling and/or vaping. Screenin:04 [facility] ED Fall Risk Assessment (Adult) History of falling in the last 3 months, kj2 including since admission No falls in past 3 months (0 pts) Confusion or Disorientation No (0 pts) Intoxicated or Sedated No (0 pts) Impaired Gait No (0 pts) Mobility Assist Device Used No (0 pt) Altered Elimination No (0 pt) Score/Fall Risk Level 0 - 2 = Low Risk Maintained a safe environment, Hourly rounding (assess needs \T\ fall precautionary measures) done. Abuse screen: Denies threats or abuse. Denies injuries from another. Nutritional screening: No deficits noted. Tuberculosis screening: No symptoms or risk factors identified. Assessment: 19:45 General: Appears in no apparent distress. uncomfortable, Behavior is calm, cooperative. kj2 Pain: Complains of pain in chest Pain does not radiate. Pain currently is 7 out of 10 on a pain scale. Pain began 1 day ago. Neuro: Level of Consciousness is awake, alert, obeys commands, Oriented to person, place, time, situation. Cardiovascular: Patient's skin is warm and dry. Chest pain. Respiratory: Airway is patent Respiratory effort is even, unlabored. GI: No signs and/or symptoms were reported involving the gastrointestinal system. : No signs and/or symptoms were reported regarding the genitourinary system. Vital Signs: 17:38 BP 144 / 95; Pulse 100; Resp 20; Temp 98.5; Pulse Ox 99% ; Weight 108.86 kg; Height 5 db ft. 3 in. ; Pain 8/10; 19:45 BP 127 / 94; Pulse 92; Resp 18; Temp 98.4; Pulse Ox 99% on R/A; kj2 20:45 BP 124 / 89; Pulse 91; Resp 18; Temp 98; Pulse Ox 98% on R/A; kj2 17:38 Body Mass Index 42.51 (108.86 kg, 160.02 cm) db 17:38 Pain Scale: Adult db ED Course: 17:33 Patient arrived in ED. mr 17:37 Alvaro Jacobs MD is Attending Physician. ec2 17:40 Triage completed. db 17:41 Arm band placed on Patient placed in waiting room. db 17:48 EKG done, by ED staff, reviewed by Alvaro Jacobs MD. db 18:01 XRAY Chest (1 view) In Process Unspecified. EDMS 18:06 LFT's Sent. bc6 18:06 Basic Metabolic Panel Sent. bc6 18:06 CBC with Diff Sent. bc6 18:06 NT PRO-BNP Sent. bc6 18:07 PT-INR Sent. bc6 18:07 Troponin HS Sent. bc6 18:07 Initial lab(s) drawn, by me, sent to lab. Inserted saline lock: 20 gauge in left bc6 antecubital area, using aseptic technique. Blood collected. Flushed with 10 mL NS. 19:27 CT Chest For PE Angio In Process Unspecified. EDMS 19:44 Ligia Fontana, RN is Primary Nurse. kj2 20:05 Patient has correct armband on for positive identification. Bed in low position. Call kj2 light in reach. Side rails up X 1. Provided Education on: call light, fall precautions. Client placed on continuous cardiac and pulse oximetry monitoring. NIBP monitoring applied. cold strip roller on. 21:01 No provider procedures requiring assistance completed. IV discontinued, intact, kj2 bleeding controlled, No redness/swelling at site. Pressure dressing applied. 21:02 Patient maintains SpO2 saturation greater than 95% on room air. kj2 Administered Medications: 19:52 Drug: morphine IVP or IV 4 mg IVP once over 4 mins Route: IVP; Infused Over: 4 mins; kj2 Site: left antecubital; 21:02 Follow up: Response: No adverse reaction; Pain is decreased kj2 Medication: 20:06 VIS not applicable for this client. kj2 Outcome: 20:23 Discharge ordered by . ec2 21:02 Discharged to home ambulatory, kj2 21:02 Condition: stable 21:02 Discharge instructions given to patient, Instructed on discharge instructions, follow up and referral plans. Demonstrated understanding of instructions, follow-up care, 21:03 Patient left the ED. kj2 Signatures: Dispatcher [employer] EDAR Rosa Elena Hurt, Reg Reg mr Rossy Santillan, RN RN db Randa Angel bc6 Alvaro Jacobs MD MD ec2 Ligia Fontana, IVETTE RN kj2
--- NOTE | 2024-08-19 20:24 | EDPHYS ---
Physician Documentation [facility] Name: Daria Arboleda Age: 34 yrs Sex: Female : 1990 Arrival Date: 08/19/2024 Time: 17:31 Bed 16 Private MD: ED Physician Alvaro Jacobs HPI: 08/19 17:45 This 34 yrs old Female presents to ER via Ambulatory with complaints of Chest ec2 Pain, abnormal EKG, Shortness Of Breath, Leg Swelling. 17:45 Patient arrives today for evaluation of chest pain and shortness of breath. Patient ec2 with previous evaluations for chest pain. States that she has a history of DVT, is on antiplatelet agents. Patient reports some chest tightness and difficulty breathing.. 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 - Infectious Disease History:: Denies. - Social history:: Smoking status: Reported history of juuling and/or vaping. ROS: 17:45 Constitutional: as per hpi ec2 Exam: 17:45 Constitutional: GEN: NAD Head: atraumatic Eyes: EOMI Ears: External ears are ec2 normal. CV: Tachycardia LUNGS: no respiratory distress ABD: non-distended SKIN: no evidence of rashes MSK: no evidence of trauma Vital Signs: 17:38 BP 144 / 95; Pulse 100; Resp 20; Temp 98.5; Pulse Ox 99% ; Weight 108.86 kg; Height 5 db ft. 3 in. ; Pain 8/10; 19:45 BP 127 / 94; Pulse 92; Resp 18; Temp 98.4; Pulse Ox 99% on R/A; kj2 20:45 BP 124 / 89; Pulse 91; Resp 18; Temp 98; Pulse Ox 98% on R/A; kj2 17:38 Body Mass Index 42.51 (108.86 kg, 160.02 cm) db 17:38 Pain Scale: Adult db MDM: 17:37 Patient medically screened. ec2 17:45 Data reviewed: vital signs. ED course: Patient arrives today for chest pain and ec2 shortness of breath. Examination remarkable for well-appearing nontoxic dividual is otherwise in no acute distress with a reassuring examination. Will obtain lab work, EKG, chest x-ray, CT scan of the chest. Differential include processes such as PE, ACS, arrhythmia . 17:48 ED course: EKG independently reviewed and interpreted by me, shows normal sinus rhythm, ec2 rate of 97, no acute ST segment elevations, intervals are nonactionable. I compared this to external records, this appears grossly the same. . 18:57 ED course: Metabolic profile reassuring, LFTs nonactionable, CBC reassuring, troponin, ec2 BNP are nonactionable. Pending CT scan of the chest. . 20:22 ED course: CT scan of the chest shows no acute intrathoracic process. Will discharge ec2 home. Return precautions given for. 08/19 17:37 Order name: Basic Metabolic Panel; Complete Time: 18:57 ec2 08/19 17:37 Order name: CBC with Diff; Complete Time: 18:57 ec2 08/19 17:37 Order name: NT PRO-BNP; Complete Time: 18:57 ec2 08/19 17:37 Order name: PT-INR; Complete Time: 18:57 ec2 08/19 17:37 Order name: Troponin HS; Complete Time: 18:57 ec2 08/19 17:37 Order name: LFT's; Complete Time: 18:57 ec2 08/19 17:45 Order name: Test, Urine; Complete Time: 18:57 ec2 08/19 17:37 Order name: XRAY Chest (1 view); Complete Time: 19:31 ec2 08/19 17:45 Order name: CT Chest For PE Angio; Complete Time: 20:22 ec2 08/19 17:37 Order name: EKG; Complete Time: 17:38 ec2 08/19 17:37 Order name: Cardiac monitoring; Complete Time: 19:52 ec2 08/19 17:37 Order name: EKG - Nurse/Tech; Complete Time: 17:48 ec2 08/19 17:37 Order name: IV Saline Lock; Complete Time: 18:06 ec2 08/19 17:37 Order name: Labs collected and sent; Complete Time: 18:06 ec2 08/19 17:37 Order name: O2 Per Protocol; Complete Time: 19:52 ec2 08/19 17:37 Order name: O2 Sat Monitoring; Complete Time: 19:52 ec2 Administered Medications: 19:52 Drug: morphine IVP or IV 4 mg IVP once over 4 mins Route: IVP; Infused Over: 4 mins; kj2 Site: left antecubital; 21:02 Follow up: Response: No adverse reaction; Pain is decreased kj2 Disposition Summary: 08/19/24 20:23 Discharge Ordered Notes: Location: Home ec2 Condition: Stable ec2 Diagnosis - Chest pain, unspecified ec2 Followup: ec2 - With: Private Physician - When: - Reason: Re-evaluation by your physician Discharge Instructions: - Discharge Summary Sheet ec2 - Nonspecific Chest Pain, Adult ec2 Forms: - Medication Reconciliation Form ec2 - Antibiotic Education ec2 - Prescription Opioid Use ec2 - Patient Portal Instructions ec2 - Leadership Thank You Letter ec2 Signatures: Dispatcher [employer] Rossy Smith, RN RN db Alvaro Jacobs MD MD ec2 Ligia Fontana RN RN kj2 Corrections: (The following items were deleted from the chart) 17:38 17:38 BASIC METABOLIC PANEL+C.LAB.BRZ ordered. EDMS EDMS 17:38 17:38 CBC+H.LAB.BRZ ordered. EDMS EDMS 17:38 17:38 PROBNP+C.LAB.BRZ ordered. EDMS EDMS 17:38 17:38 PROTIME (+INR)+COAG.LAB.BRZ ordered. EDMS EDMS 17:38 17:38 Troponin High Sensitivity+C.LAB.BRZ ordered. EDMS EDMS
[2024-08-19 22:15] VITALS: BP 124/89; TEMP 98; O2SAT 98
--- NOTE | 2024-08-20 12:09 | EKG ---
Test Date: 2024-08-19 Test Time: 17:46:07 Loaders: MILLER MEASUREMENT RESULTS: Intervals: Rate: 97 NE: 130 QRSD: 96 QT: 350 QTc: 444 [place]: P: 68 NE: 130 QRS: 45 T: 43 INTERPRETIVE STATEMENTS: Normal sinus rhythm Normal ECG Compared to ECG 07/29/2024 17:31:00 No significant changes Electronically Signed On 08-20-24 12:07:24 CDT by Dale Barajas
== END 2024-08-19 21:03 | disposition home or self-care (01) ==
LOC: ER 17:31
DX: R07.9 Chest pain, unspecified (principal); R06.02 Shortness of breath; F41.9 Anxiety disorder, unspecified; Z86.718 Personal history of other venous thrombosis and embolism; Z79.01 Long term (current) use of anticoagulants
CPT/HCPCS: 85025; 80048; 36415; 81025; 85610; 80076; 84484; 83880; 71275; 71045; Q9967; 93005; 96374; 99285

== ENCOUNTER 2024-09-11 06:39 | Day surgery (SDC) | payer BC ==
[2024-09-09 09:49] LABS: Absolute Eosinophils 0.1 K/uL (0-0.5); Absolute Lymphocytes (CBC) 1.9 K/uL (0.7-4.9); Absolute Monocytes 0.6 K/uL (0.1-1.3); Absolute Neutrophil 2.9 K/uL (1.8-8.0); Basophils % 0.4 % (0-1.3); Eosinophils % 2.2 % (0-4.4); Hematocrit 41.3 % (36.0-45.0); Lymphocytes % 33.9 % (15.3-44.8); MCH 30.4 pg (27.0-35.0); MCHC 33.9 g/dL (32.0-36.0); MCV 89.6 fL (80-100); MPV 8.6 fL (7.6-11.3); Monocytes % 10.5 % (3.3-12.3); Nucleated Red Blood Cells % 0.1 % (0-0); Platelets 292 thou/uL (152-406); RBC Red Blood Cell Count 4.62 M/uL (3.86-4.86); Red Cell Distribution Width 13.7 % (12.1-15.2)
[2024-09-09 09:54] LABS: PT Prothrombin Time 11.3 SECONDS (9.4-12.5); PTT, Activated Partial Thromb 32.8 SECONDS (24.3-36.9); Protime INR 1.01
[2024-09-09 10:01] LABS: Anion Gap 8.7 mEq/L (5.0-15.0); Potassium 3.7 mEq/L (3.5-5.1)
--- NOTE | 2024-09-10 11:53 | EKG ---
Test Date: 2024-09-09 Test Time: 08:50:23 Case Reviewer: AUBREY MEASUREMENT RESULTS: Intervals: Rate: 85 VT: 148 QRSD: 100 QT: 368 QTc: 437 [place]: P: 62 VT: 148 QRS: 57 T: 41 INTERPRETIVE STATEMENTS: Normal sinus rhythm Normal ECG Compared to ECG 08/24/2024 17:10:52 Sinus arrhythmia no longer present Myocardial infarct finding no longer present Electronically Signed On 09-10-24 11:51:28 CDT by Dale Barajas
[2024-09-11] MEDS ORDERED: NA CHLORIDE 0.9% 500 ML ONE (06:40)
[2024-09-11] MEDS ORDERED: HEPA 1000U/500MLS 2,000 UNIT/1,000 ML BAG IV ONE (06:43)
[2024-09-11] MEDS ORDERED: NITROGLYCERIN/D5W 50 MG/250 ML BTL IV ONE (06:44)
[2024-09-11] MEDS ORDERED: HEPARIN 5000 UNIT/ML 1 ML VIAL ONE (06:44)
[2024-09-11] MEDS ORDERED: HEPARIN 10,000 UNIT/10 ML VIAL IV ONE (06:44)
[2024-09-11] MEDS ORDERED: LIDOCAINE 1% 20 ML MDV ONE ×2 (06:44→07:41)
[2024-09-11] MEDS ORDERED: VERAPAMIL HCL 10 MG/4 ML VIAL IV ONE (06:44)
[2024-09-11] MEDS ORDERED: CLOPIDOGREL 75 MG TABLET ONE (06:44)
[2024-09-11] MEDS ORDERED: ASPIRIN 325 MG TAB ONE (06:45)
[2024-09-11] MEDS ORDERED: TICAGRELOR 90 MG TABLET PO ONE (06:45)
[2024-09-11] MEDS ORDERED: MIDAZOLAM HCL 2 MG/2 ML INJ ONE (06:48)
[2024-09-11] MEDS ORDERED: FENTANYL CITR 100 MCG/2 ML ONE (06:49)
[2024-09-11 08:25] VITALS: TEMP 97.4
[2024-09-11 09:39] VITALS: O2SAT 97
[2024-09-11 10:26] VITALS: BP 131/80
== END 2024-09-11 10:20 | disposition home or self-care (01) ==
LOC: CCL 06:39
PROVIDERS: ATTEND Internal Medicine
DX: I20.0 Unstable angina (principal); I82.409 Acute embolism and thrombosis of unspecified deep veins of unspecified lower extremity; I10 Essential (primary) hypertension; R00.0 Tachycardia, unspecified; E78.5 Hyperlipidemia, unspecified; Z79.01 Long term (current) use of anticoagulants; Z79.899 Other long term (current) drug therapy
CPT/HCPCS: 93005; 85025; 80048; 36415; 85610; 85730; 93458; 76937; C1893; Q9966; C1760; G0269; J1644; J2001; J2250; J3010; J7040; 99152

== ENCOUNTER 2024-12-16 17:22 | Emergency (ER) | payer BC ==
[2024-12-16] MEDS ORDERED: ACETAMINOPHEN 500 MG TAB ONE (18:24)
--- NOTE | 2024-12-16 19:03 | RAD REPORT ---
EXAMINATION: US LEFT LOWER EXTREMITY VENOUS DOPPLER CLINICAL INDICATION: eval for LLE dvt TECHNIQUE: Complete bilateral duplex sonography of the LEFT lower extremity veins was performed. The examination included compression for vein patency, color Doppler imaging and flow augmentation in response to distal compression of the distal external iliac, common femoral, femoral, popliteal, tibi al, and great and small saphenous veins. COMPARISON: No prior exam. FINDINGS: Duplex sonography testing of the veins of the LEFT lower extremity was performed. Color flow imaging shows all veins to be compressible with [id number] color filling. Pulsatile and phasic flow is present within all lower extremity deep and superficial veins examined. IMPRESSION: There is no deep vein or superficial vein thrombosis.
--- NOTE | 2024-12-16 19:14 | EDPHYS ---
Physician Documentation [facility] Name: Daria Arboleda Age: 34 yrs Sex: Female : 1990 Arrival Date: 12/16/2024 Time: 17: Bed IW1 Private MD: ED Physician Alvaro Jacobs HPI: 12/16 17:55 This 34 yrs old Female presents to ER via Ambulatory with complaints of Leg ec2 Pain - Left. 17:55 Patient reports a history of previous DVT, states that she is on Eliquis x 2. Patient ec2 reports left lower extremity pain.. Historical: - Allergies: 17:52 No Known Allergies; ld1 - PMHx: 17:52 Anxiety; blood clot in leg (Tonsillectomy); Kidney stone; ld1 - PSHx: 17:52 Appendectomy; Cholecystectomy; partial hysterectomy; Tonsillectomy; ld1 - Immunization history:: Adult Immunizations up to date. - Infectious Disease History:: Denies. - Social history:: Smoking status: Patient denies any tobacco usage or history of. ROS: 17:55 Constitutional: as per hpi ec2 Exam: 17:55 Constitutional: GEN: NAD Head: atraumatic Eyes: EOMI Ears: External ears are ec2 normal. CV: regular rate LUNGS: no respiratory distress ABD: non-distended SKIN: no evidence of rashes MSK: no evidence of trauma, left lower extremity with general TTP without significant swelling or ecchymosis. Intact distal neurovascular status. Vital Signs: 17:50 Temp 98.2(TE); Weight 106.59 kg; Height 5 ft. 2 in. ; Pain 7/10; ld1 17:51 BP 147 / 97; Pulse 105; Resp 18; Pulse Ox 98% on R/A; ld1 17:50 Body Mass Index 42.98 (106.59 kg, 157.48 cm) ld1 17:50 Pain Scale: Adult ld1 MDM: 17:51 Medical Screening Exam initiated ec2 17:55 Data reviewed: vital signs, nurses notes. ED course: Patient arrives today for ec2 evaluation of left lower extremity pain. Examination is unrevealing. Will obtain DVT ultrasound.. 19:13 ED course: Ultrasound negative for DVT. Will discharge home. Return precautions given.. ec2 12/16 17:55 Order name: Extremity Venous Uni Ltd ; Complete Time: 19:10 ec2 Administered Medications: 18:50 Drug: Acetaminophen PO 1000 mg PO once Route: PO; ld1 19:26 Follow up: Response: No adverse reaction; No change in condition; take ibuprofen at homevc1 Disposition Summary: 12/16/24 19:13 Discharge Ordered Notes: Location: Home ec2 Condition: Stable ec2 Diagnosis - Pain in left lower leg ec2 Followup: ec2 - With: Private Physician - When: - Reason: Re-evaluation by your physician Discharge Instructions: - Discharge Summary Sheet ec2 - Musculoskeletal Pain ec2 Forms: - Medication Reconciliation Form ec2 - Antibiotic Education ec2 - Prescription Opioid Use ec2 - Patient Portal Instructions ec2 - Leadership Thank You Letter ec2 Signatures: Dispatcher [employer] Carmen Clifford RN RN ld1 Alvaro Jacobs MD MD ec2 Jillian Pimentel RN vc1
--- NOTE | 2024-12-16 19:14 | ER ---
Nurse's Notes [facility] Name: Daria Arboleda Age: 34 yrs Sex: Female : 1990 Arrival Date: 12/16/2024 Time: : Bed IW1 Private MD: Diagnosis: Pain in left lower leg Presentation: 12/16 17:51 Chief complaint: Patient states: Left lower leg possible blood clot. Dr. Saini sent pt ld1 to ER to make sure there was not a blood clot. Coronavirus screen: At this time, the client does not indicate any symptoms associated with coronavirus-19. Ebola Screen: No symptoms or risks identified at this time. Initial Sepsis Screen: Does the patient meet any 2 criteria? No. Patient's initial sepsis screen is negative. Does the patient have a suspected source of infection? No. Patient's initial sepsis screen is negative. Risk Assessment: Do you want to hurt yourself or someone else?. 17:51 Method Of Arrival: Ambulatory ld1 17:51 Acuity: AMARJIT 3 ld1 17:52 Onset of symptoms was December 16, 2024. ld1 Triage Assessment: 17:52 General: Appears in no apparent distress. comfortable, Behavior is calm, cooperative, ld1 appropriate for age. Pain: Complains of pain in left leg Pain does not radiate. Pain currently is 8 out of 10 on a pain scale. Quality of pain is described as throbbing, Pain began suddenly, Is continuous. EENT: No signs and/or symptoms were reported regarding the EENT system. Neuro: Level of Consciousness is awake, alert, obeys commands, Oriented to person, place, time, situation. Cardiovascular: Capillary refill < 3 seconds Patient's skin is warm and dry. Respiratory: Airway is patent Respiratory effort is even, unlabored. GI: Abdomen is round non-distended. : No signs and/or symptoms were reported regarding the genitourinary system. Derm: No signs and/or symptoms reported regarding the dermatologic system. Musculoskeletal: No signs and/or symptoms reported regarding the musculoskeletal system. Historical: - Allergies: 17:52 No Known Allergies; ld1 - PMHx: 17:52 Anxiety; blood clot in leg (Tonsillectomy); Kidney stone; ld1 - PSHx: 17:52 Appendectomy; Cholecystectomy; partial hysterectomy; Tonsillectomy; ld1 - Immunization history:: Adult Immunizations up to date. - Infectious Disease History:: Denies. - Social history:: Smoking status: Patient denies any tobacco usage or history of. Screenin:23 [facility] ED Fall Risk Assessment (Adult) History of falling in the last 3 months, vc1 including since admission No falls in past 3 months (0 pts) Confusion or Disorientation No (0 pts) Intoxicated or Sedated No (0 pts) Impaired Gait No (0 pts) Mobility Assist Device Used No (0 pt) Altered Elimination No (0 pt) Score/Fall Risk Level 0 - 2 = Low Risk Oriented to surroundings, Maintained a safe environment, Educated pt \T\ family on fall prevention, incl call for assistance when getting out of bed. Abuse screen: Denies threats or abuse. Nutritional screening: No deficits noted. Tuberculosis screening: No symptoms or risk factors identified. Vital Signs: 17:50 Temp 98.2(TE); Weight 106.59 kg; Height 5 ft. 2 in. ; Pain 7/10; ld1 17:51 BP 147 / 97; Pulse 105; Resp 18; Pulse Ox 98% on R/A; ld1 17:50 Body Mass Index 42.98 (106.59 kg, 157.48 cm) ld1 17:50 Pain Scale: Adult ld1 ED Course: 17:25 Patient arrived in ED. ra3 17:31 Alvaro Jacobs MD is Attending Physician. ec2 17:52 Triage completed. ld1 17:52 Arm band placed on right wrist. ld1 18:56 Extremity Venous Uni Ltd US In Process Unspecified. EDMS 19:24 Provided Education on: heat therapy, ibuprofen. vc1 19:24 No provider procedures requiring assistance completed. Patient did not have IV access vc1 during this emergency room visit. 19:25 seen in [facility]. vc1 Administered Medications: 18:50 Drug: Acetaminophen PO 1000 mg PO once Route: PO; ld1 19:26 Follow up: Response: No adverse reaction; No change in condition; take ibuprofen at homevc1 Medication: 19:24 VIS not applicable for this client. vc1 Intake: Outcome: 19:13 Discharge ordered by . ec2 19:24 Discharged to home ambulatory, vc1 19:24 Condition: good 19:24 Discharge instructions given to patient, Instructed on discharge instructions, follow up and referral plans. Demonstrated understanding of instructions, follow-up care, 19:27 Patient left the ED. vc1 Signatures: Dispatcher [employer] Carmen Clifford RN RN ld1 Jillian Pimentel RN RN vc1 Alvaro Jacobs MD MD ec2 Melanie Mcgowan ra3
[2024-12-16 23:10] VITALS: TEMP 98.2
[2024-12-16 23:11] VITALS: BP 147/97; O2SAT 98
== END 2024-12-16 19:27 | disposition home or self-care (01) ==
LOC: ER 17:22
DX: M79.662 Pain in left lower leg (principal); Z86.718 Personal history of other venous thrombosis and embolism; Z79.01 Long term (current) use of anticoagulants
CPT/HCPCS: 93971; 99283

== ENCOUNTER 2025-07-05 11:21 | Emergency (ER) | payer BC ==
[2025-07-05 12:17] LABS: Absolute Lymphocytes (CBC) 2.2 K/uL (0.7-4.9); Hematocrit 42.9 % (36.0-45.0); Hemoglobin 14.7 g/dL (12.0-15.0); MCH 29.7 pg (27.0-35.0); MCHC 34.3 g/dL (32.0-36.0); MCV 86.6 fL (80-100); MPV 8.7 fL (7.6-11.3); Nucleated RBC Absolute Count 0.0 (0-0); Nucleated Red Blood Cells % 0.1 % (0-0); RBC Red Blood Cell Count 4.95 M/uL (3.86-4.86); White Blood Count 6.80 thou/uL (4.3-10.9)
[2025-07-05 12:24] LABS: PT Prothrombin Time 11.8 SECONDS (10-13.0); Protime INR 1.05
[2025-07-05 12:40] LABS: ALT/SGPT 26 U/L (13-56); AST/SGOT 17 U/L (15-37); Albumin 3.9 g/dL (3.4-5.0); Albumin/Globulin Ratio 1.1 (1.1-1.8); Alkaline Phosphatase 45 U/L (45-117); Anion Gap 9.0 mEq/L (5.0-15.0); BUN Blood Urea Nitrogen 9 mg/dL (7-18); Globulin 3.4 g/dL (2.3-3.5); Glucose Level 99 mg/dL (74-106); Lipase 24 U/L (13-75); Magnesium 1.8 mg/dL (1.6-2.4); NT PRO-BNP 10 pg/mL (<125); Potassium 4.0 mEq/L (3.5-5.1)
[2025-07-05 12:41] LABS: Bilirubin Indirect, Calculated 0.2 mg/dL (0.2-0.8); Troponin High Sensitivity < 3.0 pg/mL (<58.9)
[2025-07-05] MEDS ORDERED: FAMOTIDINE 20 MG/2 ML VIAL IV ONE (12:53)
[2025-07-05] MEDS ORDERED: ASPIRIN 81 MG CHEWABLE TABLET ONE (12:53)
[2025-07-05] MEDS ORDERED: NA CHLORIDE 0.9% 1,000 ML ONE (12:53)
--- NOTE | 2025-07-05 13:24 | RAD REPORT ---
EXAM: Chest Single View HISTORY: 35 years Female CHEST PAIN COMPARISON: 08/24/25 FINDINGS: LUNGS/PLEURA: The lungs are clear. No pleural effusions or pneumothorax. No pulmonary edema. CARDIAC/MEDIASTINUM: The cardiac silhouette is within normal limits. UPPER ABDOMEN: No significant abnormality. BONES: No acute abnormality. LINES/TUBES/OTHER: N/A IMPRESSION: No evidence of acute cardiopulmonary disease. No significant change from prior.
[2025-07-05] MEDS ORDERED: LIDOCAINE VISCOUS 2% 10ML ORAL SOLN ONE (13:28)
[2025-07-05] MEDS ORDERED: MAGNES/ALUMIN/SIMET 30ML UCUP ONE (13:28)
--- NOTE | 2025-07-05 14:11 | RAD REPORT ---
EXAMINATION: CTA CHEST PE CLINICAL INDICATION: Female, 35 years old. CHEST PAIN TECHNIQUE: This examination was performed according to an angiographic protocol with 3D post-processi ng. This involves 3D reconstructions, MIPs, volume rendered images and/or shaded surface rendering. One or more of the following dose reduction techniques were used: Automated exposure control, adjustm ent of the mA and/or kV according to patient size, and/or iterative reconstruction. Unless otherwise specified, incidental findings do not require dedicated imaging follow-up. [id number]. COMPARISON: 08/19/2024 FINDINGS: LOWER NECK: Visualized thyroid gland and soft tissues are normal. MEDIASTINUM AND LYMPH NODES: No mediastinal mass or fluid collection. Normal size mediastinal, hilar, and axillary lymph nodes. THORACIC AORTA: No thoracic aortic aneurysm. Heparin right sublingual artery PULMONARY ARTERIES: Caliber is within normal limits. HEART: Normal heart size. No coronary calcifications.No significant pericardial effusion. LUNGS AND AIRWAYS: No evidence of airspace or interstitial process. No suspicious and/or stable pulmo nary nodules. PLEURA: No pleural effusions. No pneumothorax. OSSEOUS STRUCTURES AND CHEST WALL: No fracture or suspicious osseous lesions. UPPER ABDOMEN: No acute abnormalities. IMPRESSION: Negative for pulmonary embolism. No other acute process identified in the chest.
--- NOTE | 2025-07-05 14:28 | ER ---
Nurse's Notes [facility] Name: Daria Arboleda Age: 35 yrs Sex: Female : 1990 Arrival Date: 07/05/2025 Time: 11:21 Bed 11 Private MD: Diagnosis: Chest pain, unspecified;Pleurisy;Dyspnea Presentation: 07/05 11:31 Chief complaint: Patient states: SHE IS HAVING CHEST PAIN, PAIN WHEN SWALLOWING AND dd2 TROUBLE BREATHING BEGINNING YESTERDAY. Coronavirus screen: At this time, the client does not indicate any symptoms associated with coronavirus-19. Ebola Screen: No symptoms or risks identified at this time. Initial Sepsis Screen: Does the patient meet any 2 criteria? No. Patient's initial sepsis screen is negative. Does the patient have a suspected source of infection? No. Patient's initial sepsis screen is negative. Risk Assessment: Do you want to hurt yourself or someone else? Patient reports no desire to harm self or others. Onset of symptoms was July 04, 2025. 11:31 Method Of Arrival: Ambulatory dd2 11:31 Acuity: AMARJIT 3 dd2 Triage Assessment: 11:33 General: Appears in no apparent distress. Behavior is calm, cooperative, appropriate dd2 for age. Pain: Complains of pain in mid-sternal area, THROAT Pain currently is 6 out of 10 on a pain scale. EENT: Reports pain when swallowing. Cardiovascular: Reports chest pain. Respiratory: Reports shortness of breath. 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 - Infectious Disease History:: Denies. - Social history:: Smoking status: Reported history of juuling and/or vaping. - Family history:: not pertinent. Screenin:04 [facility] ED Fall Risk Assessment (Adult) History of falling in the last 3 months, ap3 including since admission No falls in past 3 months (0 pts) Confusion or Disorientation No (0 pts) Intoxicated or Sedated No (0 pts) Impaired Gait No (0 pts) Mobility Assist Device Used No (0 pt) Altered Elimination No (0 pt) Score/Fall Risk Level 0 - 2 = Low Risk Oriented to surroundings, Maintained a safe environment, Educated pt \T\ family on fall prevention, incl call for assistance when getting out of bed, Assessed \T\ reinforced patient's understanding of fall precautions, Hourly rounding (assess needs \T\ fall precautionary measures) done, Used ambulatory aids as needed (educated on \T\ assisted with). Abuse screen: Denies threats or abuse. Nutritional screening: No deficits noted. Tuberculosis screening: No symptoms or risk factors identified. Assessment: 13:03 General: Appears in no apparent distress. Behavior is calm, cooperative, appropriate ap3 for age. Pain: Complains of pain in chest Pain radiates to neck Pain began gradually. Neuro: Level of Consciousness is awake, alert, obeys commands, Oriented to person, place, time, situation, Appropriate for age Gait is steady, Speech is normal. Cardiovascular: Patient's skin is warm and dry. Respiratory: Airway is patent Respiratory effort is even, unlabored, Respiratory pattern is regular, symmetrical. Vital Signs: 11:31 BP 134 / 96; Pulse 94; Resp 16; Temp 97.9; Pulse Ox 100% on R/A; Weight 99.79 kg; dd2 Height 5 ft. 3 in. ; Pain 6/10; 13:49 BP 130 / 81; Pulse 87; Resp 18; Pulse Ox 98% on R/A; ap3 14:53 BP 140 / 88; Pulse 76; Resp 17; Pulse Ox 99% on R/A; ap3 11:31 Body Mass Index 38.97 (99.79 kg, 160.02 cm) dd2 11:31 Pain Scale: Adult dd2 ED Course: 11:25 Patient arrived in ED. cj3 11:29 Gurmeet Beard MD is Attending Physician. edvin 11:33 Triage completed. dd2 11:33 Arm band placed on right wrist. dd2 12:10 Basic Metabolic Panel Sent. bc6 12:10 CBC with Diff Sent. bc6 12:11 LFT's Sent. bc6 12:11 Magnesium Sent. bc6 12:11 NT PRO-BNP Sent. bc6 12:11 PT-INR Sent. bc6 12:11 Troponin HS Sent. bc6 12:11 Initial lab(s) drawn, by me, sent to lab. Inserted saline lock: 20 gauge in left bc6 antecubital area, using aseptic technique. Blood collected. Flushed with 10 mL NS. 12:35 XRAY Chest (1 view) In Process Unspecified. EDMS 12:46 Patient placed in an exam room, on a stretcher. ll1 13:00 Hanane Vega, RN is Primary Nurse. ap3 13:05 Patient has correct armband on for positive identification. Call light in reach. Side ap3 rails up X 1. Provided Education on: medications prior to administration . Client placed on continuous cardiac and pulse oximetry monitoring. NIBP monitoring applied. ekg monitor on. Pulse ox on. NIBP on. 13:05 Patient maintains SpO2 saturation greater than 95% on room air. ap3 13:47 CT Chest For PE Angio In Process Unspecified. EDMS 14:27 Daniel Agosto MD is Referral Physician. edvin 14:53 No provider procedures requiring assistance completed. IV discontinued, intact, ap3 bleeding controlled, No redness/swelling at site. Pressure dressing applied. Administered Medications: 13:00 Drug: Aspirin PO Chewable Tablet 324 mg PO once; 81 mg tablets x 4 Route: PO; ap3 13:31 Follow up: Response: No adverse reaction ap3 13:00 Drug: Famotidine IVP 20 mg IVP once; dilute with 10 mL 0.9% NaCl; give over 2 minutes ap3 Route: IVP; Site: left antecubital; 13:31 Follow up: Response: No adverse reaction ap3 13:00 Drug: NS 0.9% IV 500 ml 500 ml IV at 1 bolus once; to be given as a bolus over 30 ap3 minutes Volume: 500 ml; Route: IV; Rate: 1 bolus; Site: left antecubital; 13:50 Follow up: IV Status: Completed infusion; IV Intake: 500ml ap3 13:30 Drug: GI Cocktail without - (Maalox PO 30 ml, Lidocaine Mucous Membrane 2 % 15 ap3 ml) PO once Route: PO; 14:41 Follow up: Response: No adverse reaction ap3 14:46 Not Given (Duplicate Order): toprol xl200 mg PO once edvin 14:53 Drug: ToPROL XL PO 25 mg PO once Route: PO; ap3 14:53 Follow up: Response: Medication administered at discharge. ap3 Medication: 13:05 VIS not applicable for this client. ap3 Intake: 13:50 IV: 500ml; Total: 500ml. ap3 Outcome: 14:28 Discharge ordered by . edvin 14:53 Discharged to home ambulatory, ap3 14:53 Condition: good 14:53 Discharge instructions given to patient, Instructed on discharge instructions, follow up and referral plans. Demonstrated understanding of instructions, follow-up care, medications, Prescriptions given X 1, 14:54 Patient left the ED. ap3 Signatures: Dispatcher [employer] EDMS Gurmeet Beard MD MD cha Prokisch, Amanda RN RN ap3 Med Sheikh RN RN ll1 Randa Angel DIANA, RN RN dd2 Polly Egan cj3
--- NOTE | 2025-07-05 14:28 | EDPHYS ---
Physician Documentation [facility] Name: Daria Arboleda Age: 35 yrs Sex: Female : 1990 Arrival Date: 07/05/2025 Time: 11:21 Bed 11 Private MD: JUVE Physician Gurmeet Beard HPI: 07/05 14:21 This 35 yrs old Female presents to ER via Ambulatory with complaints of Chest edvin Pain, Breathing Difficulty. 14:21 The patient or guardian reports chest pain that is located primarily in the anterior edvin chest wall, bilaterally. The pain does not radiate. Associated signs and symptoms: The patient has no apparent associated signs or symptoms. The chest pain is described as a pressure. Modifying factors: The symptoms are alleviated by nothing. the symptoms are aggravated by nothing. Severity of pain: At its worst the pain was mild in the emergency department the pain is unchanged. The patient has experienced similar episodes in the past, a few times. 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 - Infectious Disease History:: Denies. - Social history:: Smoking status: Reported history of juuling and/or vaping. - Family history:: not pertinent. ROS: 14:21 Constitutional: Negative for fever, chills, and weight loss, Eyes: Negative for injury, edvin pain, redness, and discharge, ENT: Negative for injury, pain, and discharge, Neck: Negative for injury, pain, and swelling, Respiratory: Negative for shortness of breath, cough, wheezing, and pleuritic chest pain, Abdomen/GI: Negative for abdominal pain, nausea, vomiting, diarrhea, and constipation, Back: Negative for injury and pain, : Negative for injury, bleeding, discharge, and swelling, MS/Extremity: Negative for injury and deformity, Skin: Negative for injury, rash, and discoloration, Neuro: Negative for headache, weakness, numbness, tingling, and seizure, Psych: Negative for depression, anxiety, suicide ideation, homicidal ideation, and hallucinations, Allergy/Immunology: Negative for hives, rash, and allergies, Endocrine: Negative for neck swelling, polydipsia, polyuria, polyphagia, and marked weight changes, Hematologic/Lymphatic: Negative for swollen nodes, abnormal bleeding, and unusual bruising, 14:21 Cardiovascular: Positive for chest pain, of the chest, Negative for edema, orthopnea, palpitations, paroxysmal nocturnal dyspnea, Exam: 14:21 Constitutional: This is a well developed, well nourished patient who is awake, alert, edvin and in no acute distress. Head/Face: Normocephalic, atraumatic. Eyes: Pupils equal round and reactive to light, extra-ocular motions intact. Lids and lashes normal. Conjunctiva and sclera are non-icteric and not injected. Cornea within normal limits. Periorbital areas with no swelling, redness, or edema. ENT: Nares patent. No nasal discharge, no septal abnormalities noted. Tympanic membranes are normal and external auditory canals are clear. Oropharynx with no redness, swelling, or masses, exudates, or evidence of obstruction, uvula midline. Mucous membranes moist. Neck: Trachea midline, no thyromegaly or masses palpated, and no cervical lymphadenopathy. Supple, full range of motion without nuchal rigidity, or vertebral point tenderness. No Meningismus. Chest/axilla: Normal chest wall appearance and motion. Nontender with no deformity. No lesions are appreciated. Cardiovascular: Regular rate and rhythm with a normal S1 and S2. No gallops, murmurs, or rubs. Normal PMI, no JVD. No pulse deficits. Respiratory: Lungs have equal breath sounds bilaterally, clear to auscultation and percussion. No rales, rhonchi or wheezes noted. No increased work of breathing, no retractions or nasal flaring. Abdomen/GI: Soft, non-tender, with normal bowel sounds. No distension or tympany. No guarding or rebound. No evidence of tenderness throughout. Back: No spinal tenderness. No costovertebral tenderness. Full range of motion. Skin: Warm, dry with normal turgor. Normal color with no rashes, no lesions, and no evidence of cellulitis. MS/ Extremity: Pulses equal, no cyanosis. Neurovascular intact. Full, normal range of motion., bilateral aka Neuro: Awake and alert, GCS 15, oriented to person, place, time, and situation. Cranial nerves II-XII grossly intact. Motor strength 5/5 in all extremities. Sensory grossly intact. Cerebellar exam normal. Normal gait. Psych: Awake, alert, with orientation to person, place and time. Behavior, mood, and affect are within normal limits. 14:21 ECG was reviewed by the Attending Physician. Vital Signs: 11:31 BP 134 / 96; Pulse 94; Resp 16; Temp 97.9; Pulse Ox 100% on R/A; Weight 99.79 kg; dd2 Height 5 ft. 3 in. ; Pain 6/10; 13:49 BP 130 / 81; Pulse 87; Resp 18; Pulse Ox 98% on R/A; ap3 14:53 BP 140 / 88; Pulse 76; Resp 17; Pulse Ox 99% on R/A; ap3 11:31 Body Mass Index 38.97 (99.79 kg, 160.02 cm) dd2 11:31 Pain Scale: Adult dd2 MDM: 11:29 Medical Screening Exam initiated edvin 14:24 Differential diagnosis: abnormal EKG, acute myocardial infarction, acute pericarditis, edvin anxiety, coronary artery disease chest wall pain, congestive heart failure cholecystitis, Cholelithiasis costochondritis, esophagitis, gastritis, gastroesophageal reflux disease (GERD), herpes zoster, myocarditis, pancreatitis, peptic ulcer disease, pericarditis, pleurisy, pneumonia, pulmonary embolus, stable angina, thoracic aortic disection, unstable angina. HEART Score: History: Slightly Suspicious (0), ECG: Normal (0), Age: < or = 45 years (0), Risk Factors: 1 or 2 risk factors (1), [+ Family HX] [Obesity] Troponin: < or = 1 x Normal Limit (0). RHONDA Risk Score: TOTAL SCORE = 0. Data reviewed: vital signs, nurses notes, lab test result(s), EKG, radiologic studies, CT scan, plain films. Consideration of Admission/Observation Escalation of care including admission/observation considered. I considered the following discharge prescriptions or medication management in the emergency department Medications were administered in the Emergency Department. See MAR. Independent interpretation of the following test(s) in the Emergency Department EKG: See my EKG interpretation above. Test considered but Not performed: Ultrasound no 2 d echo. Historians other than the Patient: pt well informed. Care significantly affected by the following chronic conditions: Obesity. 07/05 11:30 Order name: Basic Metabolic Panel; Complete Time: 13: [facility] 07/05 11:30 Order name: CBC with Diff; Complete Time: 13: [facility] 07/05 11:30 Order name: LFT's; Complete Time: 13: [facility] 07/05 11:30 Order name: Magnesium; Complete Time: 13: [facility] 07/05 11:30 Order name: NT PRO-BNP; Complete Time: 13: [facility] 07/05 11:30 Order name: PT-INR; Complete Time: 13: [facility] 07/05 11:30 Order name: Troponin HS; Complete Time: 13: [facility] 07/05 11:30 Order name: Lipase; Complete Time: : [facility] 07/05 11:30 Order name: XRAY Chest (1 view); Complete Time: 13: [facility] 07/05 13:28 Order name: CT Chest For PE Angio; Complete Time: 14:19 [facility] 07/05 11:30 Order name: EKG; Complete Time: 11:31 [facility] 07/05 11:30 Order name: Cardiac monitoring; Complete Time: 13:00 [facility] 07/05 11:30 Order name: EKG - Nurse/Tech; Complete Time: 12:55 [facility] 07/05 11:30 Order name: IV Saline Lock; Complete Time: 12:10 [facility] 07/05 11:30 Order name: Labs collected and sent; Complete Time: 12:10 [facility] 07/05 11:30 Order name: O2 Per Protocol; Complete Time: 13:00 [facility] 07/05 11:30 Order name: O2 Sat Monitoring; Complete Time: 13:00 [facility] EC:21 Rate is 75 beats/min. Rhythm is regular. QRS [place] is Normal. [place] interval is normal. QRS edvin interval is normal. QT interval is normal. No Q waves. T waves are Normal. No ST changes noted. Clinical impression: Normal ECG and No evidence of ischemia. Interpreted by me. Reviewed by me. Administered Medications: 13:00 Drug: Aspirin PO Chewable Tablet 324 mg PO once; 81 mg tablets x 4 Route: PO; ap3 13:31 Follow up: Response: No adverse reaction ap3 13:00 Drug: Famotidine IVP 20 mg IVP once; dilute with 10 mL 0.9% NaCl; give over 2 minutes ap3 Route: IVP; Site: left antecubital; 13:31 Follow up: Response: No adverse reaction ap3 13:00 Drug: NS 0.9% IV 500 ml 500 ml IV at 1 bolus once; to be given as a bolus over 30 ap3 minutes Volume: 500 ml; Route: IV; Rate: 1 bolus; Site: left antecubital; 13:50 Follow up: IV Status: Completed infusion; IV Intake: 500ml ap3 13:30 Drug: GI Cocktail without - (Maalox PO 30 ml, Lidocaine Mucous Membrane 2 % 15 ap3 ml) PO once Route: PO; 14:41 Follow up: Response: No adverse reaction ap3 14:46 Not Given (Duplicate Order): toprol xl200 mg PO once edvin 14:53 Drug: ToPROL XL PO 25 mg PO once Route: PO; ap3 14:53 Follow up: Response: Medication administered at discharge. ap3 Disposition Summary: 07/05/25 14:28 Discharge Ordered Notes: Location: Home edvin Problem: new edvin Symptoms: have improved edvin Condition: Stable edvin Diagnosis - Chest pain, unspecified edvin - Pleurisy edvin - Dyspnea edvin Followup: edvin - With: Private Physician - When: 2 - 3 days - Reason: Recheck today's complaints, Continuance of care, Re-evaluation by your physician Followup: edvin - With: Daniel Agosto MD - When: 2 - 3 days - Reason: Recheck today's complaints, Re-evaluation by your physician Discharge Instructions: - Discharge Summary Sheet edvin - Nonspecific Chest Pain, Adult edvin - Nonspecific Chest Pain, Adult, [id number] edvin - Aspirin and Your Heart edvin Forms: - Medication Reconciliation Form edvin - Antibiotic Education edvin - Prescription Opioid Use edvin - Patient Portal Instructions edvin - Leadership Thank You Letter [facility] Prescriptions: - Toprol XL 25 mg Oral Tablet - take 1 tablet ORAL route once daily; 20 tablet; Refills: 0, Product Selection edvin Permitted Signatures: Dispatcher [employer] Gurmeet Loza MD MD cha Prokisch, Amanda RN RN ap3 CAROLYNE PHELPS RN RN dd2
[2025-07-05] MEDS ORDERED: METOPROLOL XL 50 MG TAB PO ONE (14:45)
[2025-07-05 15:23] VITALS: TEMP 97.9
[2025-07-05 15:26] VITALS: BP 140/88; O2SAT 99
== END 2025-07-05 14:54 | disposition home or self-care (01) ==
LOC: ER 11:21
DX: R09.1 Pleurisy (principal); R06.00 Dyspnea, unspecified
CPT/HCPCS: 96361; 93005; 85025; 80048; 36415; 83735; 85610; 80076; 84484; 83690; 83880; 71275; 71045; 96374; 99285; Q9967; J7030